=== PATIENT | male | born 1980 | race Hispanic/Latino ===

== ENCOUNTER 2018-05-08 17:06 | Inpatient (IN) | payer MEDICAID, OTHER ==
[~2018-05-08] VITALS: Ht 180.3 cm; Wt 117.6 kg
[2018-05-08] MEDS ORDERED: NITROGLYCERIN 0.4 MG SL TAB SL ONE (17:17)
[2018-05-08] MEDS ORDERED: ASPIRIN 81MG TAB.CHEW ONE (17:17)
[2018-05-08] MEDS ORDERED: NITROGLYCERIN 50 MG/D5% WATER 1 BOT ONE (17:29)
[2018-05-08 17:30] LABS: BASOPHILS % (AUTO) 1.2 % (0.0-5.0); EOSINOPHILS % (AUTO) 0.9 % (0.0-8.0); LYMPHOCYTES % (AUTO) 18.6 % (21.0-51.0); MEAN CORPUSCULAR HEMOGLOBIN 30.8 pg (27.0-33.0); MEAN CORPUSCULAR VOLUME 90.5 fL (79-99); MONOCYTES % (AUTO) 5.8 % (3.0-13.0); NEUTROPHILS % (AUTO) 73.5 % (40.0-77.0); NUCLEATED RED BLOOD CELLS 0.1 % (0.0-0.19); PLATELET COUNT (AUTO) 364 K/uL (130-400); RED BLOOD CELL COUNT(AUTO) 5.53 MIL/uL (4.50-6.20); RED CELL DISTRIBUTION WIDTH 13.4 % (11.0-15.5); WHITE BLOOD COUNT (AUTO) 10.6 K/uL (4.8-10.8)
[2018-05-08 17:47] LABS: INR 0.89 (0.85-1.15); PARTIAL THROMBOPLASTIN TIME 26.2 SEC (26.3-35.5); PROTHROMBIN TIME 9.4 SEC (9.6-11.6)
[2018-05-08 17:48] LABS: ALBUMIN 3.7 g/dL (3.5-5.0); BILIRUBIN,TOTAL 0.4 mg/dL (0.2-1.0); CREATININE 1.4 mg/dL (0.5-1.5); POTASSIUM 4.1 mmol/L (3.5-5.1)
[2018-05-08] MEDS ORDERED: ONDANSETRON HCL 4 MG/2 ML VIAL ONE (17:58)
[2018-05-08] MEDS ORDERED: MORPHINE SULFATE 4 MG/1ML SYG ONE (17:58)
[2018-05-08] MEDS ORDERED: GLUCAGON 1MG KIT 1 MG ML IM PRN (20:00)
[2018-05-08] MEDS ORDERED: DEXTROSE 50%-WATER 50 ML DISP.SYRIN IV PRN (20:00)
[2018-05-08] MEDS: INSULIN HUMULIN R 100 UNIT/ML 3ML SQ SCH (21:00)
[2018-05-08] MEDS ORDERED: MORPHINE SULFATE 4 MG/1ML SYG IV PRN (21:30)
[2018-05-08] MEDS ORDERED: ONDANSETRON HCL 4 MG/2 ML VIAL IV PRN (21:30)
[2018-05-08] MEDS ORDERED: NITROGLYCERIN 50 MG/D5% WATER 250 BOT IV PRN (21:30)
[2018-05-08] MEDS ORDERED: SODIUM CHLORIDE 0.9% 1000ML 1,000 ML IV ONE (22:51)
[2018-05-08 23:19] LABS: AMPHET/METH SCREEN,URINE NEGATIVE (NEGATIVE); BARBITURATE SCREEN, URINE NEGATIVE (NEGATIVE); BENZODIAZEPINES SCREEN,URINE NEGATIVE (NEGATIVE); CANNABINOID SCREEN,URINE NEGATIVE (NEGATIVE); COCAINE SCREEN,URINE POSITIVE (NEGATIVE); OPIATE SCREEN,URINE NEGATIVE (NEGATIVE); PHENCYCLIDINE SCREEN,URINE NEGATIVE (NEGATIVE)
[2018-05-08 23:46] LABS: TROPONIN I 0.72 ng/mL (0.00-0.06)
[2018-05-09] VITALS (21 sets, daily range): BP systolic 101–153; BP diastolic 44–96
[2018-05-09] MEDS ORDERED: MORPHINE SULFATE 4 MG/1ML SYG ONE (00:36)
[2018-05-09 05:49] LABS: BASOPHILS % (AUTO) 0.7 % (0.0-5.0); EOSINOPHILS % (AUTO) 1.7 % (0.0-8.0); HEMATOCRIT 42.1 % (42-54); LYMPHOCYTES % (AUTO) 21.4 % (21.0-51.0); MEAN CORPUSCULAR HEMOGLOBIN 30.5 pg (27.0-33.0); MEAN CORPUSCULAR HGB CONC 33.7 g/dL (32.0-36.0); MEAN CORPUSCULAR VOLUME 90.5 fL (79-99); NEUTROPHILS % (AUTO) 70.2 % (40.0-77.0); PLATELET COUNT (AUTO) 296 K/uL (130-400); RED BLOOD CELL COUNT(AUTO) 4.65 MIL/uL (4.50-6.20); RED CELL DISTRIBUTION WIDTH 13.3 % (11.0-15.5); WHITE BLOOD COUNT (AUTO) 9.4 K/uL (4.8-10.8)
[2018-05-09 06:09] LABS: ALBUMIN 3.1 g/dL (3.5-5.0); BILIRUBIN,TOTAL 0.2 mg/dL (0.2-1.0); CREATININE 0.8 mg/dL (0.5-1.5); POTASSIUM 3.5 mmol/L (3.5-5.1); TOTAL PROTEIN, SERUM 6.1 g/dL (6.0-8.3)
[2018-05-09 06:16] LABS: TROPONIN I 3.66 ng/mL (0.00-0.06)
[2018-05-09] MEDS: SODIUM CHLORIDE 0.9% 1000ML 1,000 ML IV SCH ×3 (07:08→16:21)
[2018-05-09] MEDS: INSULIN HUMULIN R 100 UNIT/ML 3ML SQ SCH ×4 (07:30→20:46)
[2018-05-09] MEDS ORDERED: ENOXAPARIN SODIUM 100 MG/1 ML SQ ONE (08:44)
[2018-05-09] MEDS ORDERED: PANTOPRAZOLE SODIUM 40 MG TABLET.DR PO ONE (08:45)
[2018-05-09] MEDS ORDERED: INSULIN HUMULIN R 100 UNIT/ML 3ML ONE (08:46)
[2018-05-09] MEDS: PANTOPRAZOLE SODIUM 40 MG TABLET.DR PO SCH (09:00)
[2018-05-09] MEDS: ENOXAPARIN SODIUM 100 MG/1 ML SQ SCH (09:00)
[2018-05-09] MEDS ORDERED: ASPIRIN 325MG EC TAB 325 MG TABLET.DR PO SCH (09:45)
[2018-05-09] MEDS ORDERED: ASPIRIN 325 MG TABLET ONE (10:41)
[2018-05-09] MEDS ORDERED: DILTIAZEM HCL 60 MG TABLET ONE (10:41)
[2018-05-09] MEDS ORDERED: DILTIAZEM HCL 120 MG CAP.SR.24H PO ONE (10:42)
[2018-05-09] MEDS: INSULIN LISPRO 100 UNIT/ML 3ML SQ SCH ×2 (11:30→16:21)
[2018-05-09] MEDS: DILTIAZEM HCL 180 MG CAP.SR.24H PO SCH (12:17)
[2018-05-09] MEDS ORDERED: NITROGLYCERIN 5 MG/ML 10 ML VIAL IV ONE (16:00)
[2018-05-09] MEDS ORDERED: LIDOCAINE HCL-MPF 2% 5ML VIAL ONE (16:00)
[2018-05-09] MEDS ORDERED: IOHEXOL 350 MG/ML 100ML INFUS..BTL IV ONE ×2 (16:00→17:54)
[2018-05-09] MEDS ORDERED: IOHEXOL-350 50ML VIAL IV ONE (16:00)
[2018-05-09] MEDS ORDERED: BIVALIRUDIN 250 MG/VIAL IV ONE ×2 (16:04→17:42)
[2018-05-09] MEDS ORDERED: ATROPINE SULFATE 0.1 MG/ML 10 ML SYG IVP ONE (16:24)
[2018-05-09] MEDS ORDERED: HEPARIN SODIUM 1000UNIT/ML 10ML VIAL ONE (16:24)
[2018-05-09] MEDS ORDERED: DOPAMINE HCL 400 MG/D5%-WATER 0 ML IV ONE (16:24)
[2018-05-09] MEDS ORDERED: PRASUGREL HCL 10 MG TABLET ONE (18:25)
[2018-05-09] MEDS ORDERED: SODIUM CHLORIDE 0.9% 1000ML 1,000 ML IV SCH (18:56)
[2018-05-09] MEDS ORDERED: NITROGLYCERIN 50 MG/D5% WATER 1 BOT IV PRN (19:00)
[2018-05-09] MEDS ORDERED: FUROSEMIDE 10 MG/ML 2ML VIAL ONE (19:01)
[2018-05-09] MEDS: MORPHINE SULFATE 2 MG/ML 1ML SYG IV PRN (20:36)
[2018-05-09] MEDS: INSULIN GLARGINE 100 UNITS/ML 10 ML VIAL SQ SCH (20:44)
[2018-05-10] VITALS (18 sets, daily range): BP systolic 94–144; BP diastolic 50–86
[2018-05-10 04:00] LABS: HEMATOCRIT 38.7 % (42-54); MEAN CORPUSCULAR HGB CONC 33.8 g/dL (32.0-36.0); NUCLEATED RED BLOOD CELLS 0.1 % (0.0-0.19); PLATELET COUNT (AUTO) 307 K/uL (130-400); RED BLOOD CELL COUNT(AUTO) 4.21 MIL/uL (4.50-6.20); RED CELL DISTRIBUTION WIDTH 13.8 % (11.0-15.5); WHITE BLOOD COUNT (AUTO) 6.7 K/uL (4.8-10.8)
[2018-05-10 04:11] LABS: CREATININE 0.7 mg/dL (0.5-1.5); POTASSIUM 3.3 mmol/L (3.5-5.1)
[2018-05-10] MEDS: INSULIN HUMULIN R 100 UNIT/ML 3ML SQ SCH ×3 (06:20→20:14)
[2018-05-10] MEDS: INSULIN LISPRO 100 UNIT/ML 3ML SQ SCH ×3 (06:40→16:56)
[2018-05-10] MEDS ORDERED: ATORVASTATIN CALCIUM 20 MG TABLET PO SCH (09:00)
[2018-05-10] MEDS ORDERED: PANTOPRAZOLE SODIUM 40 MG TABLET.DR PO SCH (09:00)
[2018-05-10] MEDS: PRASUGREL HCL 10 MG TABLET PO SCH (09:20)
[2018-05-10] MEDS: DILTIAZEM HCL 180 MG CAP.SR.24H PO SCH (09:20)
[2018-05-10] MEDS: ASPIRIN 81MG TAB.CHEW PO SCH (09:20)
[2018-05-10] MEDS: PANTOPRAZOLE SODIUM 40 MG TABLET.DR PO SCH (09:20)
[2018-05-10] MEDS: ENOXAPARIN SODIUM 100 MG/1 ML SQ SCH (09:25)
[2018-05-10] MEDS: ATORVASTATIN CALCIUM 20 MG TABLET PO SCH (20:09)
[2018-05-10] MEDS: ACETAMINOPHEN 325 MG TAB PO PRN (20:10)
[2018-05-10] MEDS: INSULIN GLARGINE 100 UNITS/ML 10 ML VIAL SQ SCH (20:14)
[2018-05-11] VITALS (8 sets, daily range): BP systolic 113–170; BP diastolic 68–104
[2018-05-11] MEDS: ACETAMINOPHEN 325 MG TAB PO PRN ×4 (03:35→21:24)
[2018-05-11] MEDS: INSULIN HUMULIN R 100 UNIT/ML 3ML SQ SCH ×4 (06:46→20:52)
[2018-05-11] MEDS: INSULIN LISPRO 100 UNIT/ML 3ML SQ SCH ×3 (06:46→16:39)
[2018-05-11] MEDS: PANTOPRAZOLE SODIUM 40 MG TABLET.DR PO SCH (09:35)
[2018-05-11] MEDS: ASPIRIN 81MG TAB.CHEW PO SCH (09:35)
[2018-05-11] MEDS: ENOXAPARIN SODIUM 100 MG/1 ML SQ SCH (09:35)
[2018-05-11] MEDS: DILTIAZEM HCL 180 MG CAP.SR.24H PO SCH (09:35)
[2018-05-11] MEDS: PRASUGREL HCL 10 MG TABLET PO SCH (09:36)
[2018-05-11 11:31] LABS: APPEARANCE,URINE Clear (CLEAR); BILIRUBIN,URINE Small (NEGATIVE); COLOR,URINE Dark Yellow (YELLOW); GLUCOSE, URINE (UA) TRACE mg/dL (NEGATIVE); KETONES,URINE Negative (NEGATIVE); LEUKOCYTE ESTERASE ,URINE Negative (NEGATIVE); NITRATE,URINE Negative (NEGATIVE); OCCULT BLOOD,URINE Negative (NEGATIVE); PH,URINE 6.5 (5.0-8.0); PROTEIN,URINE POS 1+ (NEGATIVE)
[2018-05-11 12:05] LABS: BACTERIA,URINE Rare /HPF (None Seen); RBC,URINE 0-1 /HPF (0-1); SQUAMOUS EPITHELIAL CELL,UR Rare /HPF (0-2); WBC,URINE 0-1 /HPF (0-1)
[2018-05-11] MEDS ORDERED: VANCOMYCIN PROTOCOL PER PHARMACY IV SCH (14:00)
[2018-05-11] MEDS ORDERED: PHARMACY COMMUNICATION MISC SCH (14:00)
[2018-05-11] MEDS: ZOSYN 3.375GM+NS 50ML 50 ML IV SCH ×2 (15:08→23:34)
[2018-05-11] MEDS ORDERED: VANCOMYCIN 2 GM in SODIUM CHLORIDE 0.9% 500ML 500 ML IV SCH (15:30)
[2018-05-11] MEDS ORDERED: COMPOUND IV REFRIGERATED 1 EACH IVSOLN MISC PRN (15:30)
[2018-05-11] MEDS ORDERED: SODIUM CHLORIDE 0.9% 250 ML IV ONE (15:44)
[2018-05-11] MEDS: ATORVASTATIN CALCIUM 20 MG TABLET PO SCH (21:23)
[2018-05-11] MEDS: VANCOMYCIN 1.75 GM in SODIUM CHLORIDE 0.9% 250 ML IV SCH (21:24)
[2018-05-11] MEDS: INSULIN GLARGINE 100 UNITS/ML 10 ML VIAL SQ SCH (21:25)
[2018-05-11] MEDS: MORPHINE SULFATE 2 MG/ML 1ML SYG IV PRN (21:30)
[2018-05-12 03:30] VITALS: BP 117/77
[2018-05-12] MEDS: ACETAMINOPHEN 325 MG TAB PO PRN (03:42)
[2018-05-12 03:43] LABS: HEMATOCRIT 38.5 % (42-54); MEAN CORPUSCULAR HEMOGLOBIN 30.5 pg (27.0-33.0); MEAN CORPUSCULAR HGB CONC 33.9 g/dL (32.0-36.0); MEAN CORPUSCULAR VOLUME 90.1 fL (79-99); PLATELET COUNT (AUTO) 248 K/uL (130-400); RED BLOOD CELL COUNT(AUTO) 4.27 MIL/uL (4.50-6.20); RED CELL DISTRIBUTION WIDTH 13.5 % (11.0-15.5); WHITE BLOOD COUNT (AUTO) 9.5 K/uL (4.8-10.8)
[2018-05-12] MEDS ORDERED: GUAIFENESIN-DM 200/20 MG 10 ML ONE (03:46)
[2018-05-12 03:50] LABS: POTASSIUM 3.2 mmol/L (3.5-5.1)
[2018-05-12 03:56] LABS: B-TYPE NATRIURETIC PEPTIDE 362 pg/mL (0-100)
[2018-05-12] MEDS ORDERED: IPRATROPIUM 0.5 MG/2.5 ML INH IH ONE (04:03)
[2018-05-12] MEDS: VANCOMYCIN 1.75 GM in SODIUM CHLORIDE 0.9% 250 ML IV SCH ×3 (05:27→21:58)
[2018-05-12] MEDS ORDERED: POTASSIUM CHLORIDE 20MEQ/100ML 100 ML IV PRN (05:45)
[2018-05-12] MEDS ORDERED: MAGNESIUM 2GM PREMIX 50ML 50 ML IV PRN (05:45)
[2018-05-12] MEDS ORDERED: LIDOCAINE HCL-MPF 1% 2ML VIAL IVP PRN (05:45)
[2018-05-12] MEDS ORDERED: POTASSIUM CHLORIDE 10% ELIXIR 20 MEQ/15 ML UDCUP PO PRN (05:45)
[2018-05-12] MEDS: INSULIN HUMULIN R 100 UNIT/ML 3ML SQ SCH ×4 (05:50→21:16)
[2018-05-12] MEDS: ZOSYN 3.375GM+NS 50ML 50 ML IV SCH ×3 (06:48→23:53)
[2018-05-12] MEDS: POTASSIUM CHLORIDE 20 MEQ ERTAB PO PRN ×3 (06:48→12:26)
[2018-05-12] MEDS: INSULIN LISPRO 100 UNIT/ML 3ML SQ SCH ×3 (06:49→16:51)
[2018-05-12 07:54] VITALS: BP 100/72
[2018-05-12] MEDS: PRASUGREL HCL 10 MG TABLET PO SCH (09:56)
[2018-05-12] MEDS: OSELTAMIVIR PHOSPHATE 75 MG CAP PO SCH ×2 (09:56→21:12)
[2018-05-12] MEDS: ASPIRIN 81MG TAB.CHEW PO SCH (09:56)
[2018-05-12] MEDS: ENOXAPARIN SODIUM 100 MG/1 ML SQ SCH (09:57)
[2018-05-12] MEDS: LANSOPRAZOLE 15 MG SOLU TAB PO SCH (09:57)
[2018-05-12 12:16] VITALS: BP 115/75
[2018-05-12] MEDS: IPRATROPIUM 0.5 MG/2.5 ML INH IH PRN ×3 (12:48→23:10)
[2018-05-12 16:41] VITALS: BP 103/79
[2018-05-12 19:00] VITALS: BP 112/72
[2018-05-12] MEDS: ATORVASTATIN CALCIUM 20 MG TABLET PO SCH (21:12)
[2018-05-12] MEDS: CARVEDILOL 12.5 MG TABLET PO SCH (21:12)
[2018-05-12] MEDS: INSULIN GLARGINE 100 UNITS/ML 10 ML VIAL SQ SCH (21:17)
[2018-05-12] MEDS ORDERED: SODIUM CHLORIDE 0.9% 250 ML IV ONE (21:32)
[2018-05-12 23:00] VITALS: BP 113/82
[2018-05-12] MEDS: GUAIFENESIN-DM 200/20 MG 10 ML PO PRN (23:04)
[2018-05-13 03:00] VITALS: BP 109/73
[2018-05-13] MEDS: MORPHINE SULFATE 2 MG/ML 1ML SYG IV PRN (03:57)
[2018-05-13] MEDS: INSULIN HUMULIN R 100 UNIT/ML 3ML SQ SCH ×3 (05:10→16:30)
[2018-05-13] MEDS: VANCOMYCIN 1.75 GM in SODIUM CHLORIDE 0.9% 250 ML IV SCH ×2 (05:11→14:27)
[2018-05-13] MEDS: INSULIN LISPRO 100 UNIT/ML 3ML SQ SCH ×3 (06:31→17:00)
[2018-05-13 08:00] VITALS: BP 105/76
[2018-05-13] MEDS: ZOSYN 3.375GM+NS 50ML 50 ML IV SCH ×2 (10:53→16:14)
[2018-05-13] MEDS: CARVEDILOL 12.5 MG TABLET PO SCH (10:54)
[2018-05-13] MEDS: OSELTAMIVIR PHOSPHATE 75 MG CAP PO SCH (10:54)
[2018-05-13] MEDS: ENOXAPARIN SODIUM 100 MG/1 ML SQ SCH (10:54)
[2018-05-13] MEDS: PRASUGREL HCL 10 MG TABLET PO SCH (10:54)
[2018-05-13] MEDS: ASPIRIN 81MG TAB.CHEW PO SCH (10:55)
[2018-05-13] MEDS: LANSOPRAZOLE 15 MG SOLU TAB PO SCH (10:55)
[2018-05-13 12:00] VITALS: BP 96/66
[2018-05-13] MEDS: GUAIFENESIN-DM 200/20 MG 10 ML PO PRN (12:36)
[2018-05-13] MEDS: IPRATROPIUM 0.5 MG/2.5 ML INH IH PRN (12:49)
[2018-05-13 16:00] VITALS: BP 104/41
[2018-05-13 19:00] VITALS: BP 121/86
[2018-05-13] MEDS ORDERED: CARV12.580 PO (19:20)
[2018-05-13] MEDS ORDERED: PRAS10TA6 PO (19:20)
[2018-05-13] MEDS ORDERED: ATOR20TA65 PO (19:20)
[2018-05-13] MEDS ORDERED: LANS15TA5 PO (19:20)
[2018-05-13] MEDS ORDERED: OSEL75 PO (19:20)
[2018-05-13] MEDS ORDERED: ASPI-1005 PO (19:20)
== END 2018-05-13 20:15 | disposition home or self-care (01) | DRG 174 ==
LOC: EDH 17:06 → EDHIP 17:07 → 2CH 05-09 12:15 → 2DH 05-10 16:59
PROVIDERS: ADMIT Internal Medicine; ATTEND Internal Medicine
PROC: 027034Z Dilation of Coronary Artery, One Artery with Drug-eluting Intraluminal Device, Percutaneous Approach (ICD-10-PCS; principal; 2018-05-09)
PROC: B2151ZZ Fluoroscopy of Left Heart using Low Osmolar Contrast (ICD-10-PCS; 2018-05-09)
PROC: 4A023N7 Measurement of Cardiac Sampling and Pressure, Left Heart, Percutaneous Approach (ICD-10-PCS; 2018-05-09)
PROC: B2111ZZ Fluoroscopy of Multiple Coronary Arteries using Low Osmolar Contrast (ICD-10-PCS; 2018-05-09)
DX: I21.4 Non-ST elevation (NSTEMI) myocardial infarction (principal); I50.43 Acute on chronic combined systolic (congestive) and diastolic (congestive) heart failure; J10.00 Influenza due to other identified influenza virus with unspecified type of pneumonia; F14.20 Cocaine dependence, uncomplicated; E11.65 Type 2 diabetes mellitus with hyperglycemia; E66.01 Morbid (severe) obesity due to excess calories; I11.0 Hypertensive heart disease with heart failure; E78.5 Hyperlipidemia, unspecified; F17.210 Nicotine dependence, cigarettes, uncomplicated; G47.00 Insomnia, unspecified; I16.1 Hypertensive emergency; I25.10 Atherosclerotic heart disease of native coronary artery without angina pectoris; I25.5 Ischemic cardiomyopathy; I34.0 Nonrheumatic mitral (valve) insufficiency; J10.1 Influenza due to other identified influenza virus with other respiratory manifestations; K59.00 Constipation, unspecified; Z68.36 Body mass index [BMI] 36.0-36.9, adult; I25.2 Old myocardial infarction; Z23 Encounter for immunization; Z91.19 Patient's noncompliance with other medical treatment and regimen; Z95.5 Presence of coronary angioplasty implant and graft; Z82.49 Family history of ischemic heart disease and other diseases of the circulatory system; Z83.3 Family history of diabetes mellitus
CPT/HCPCS: 36415; 71045; 71046; 80048; 80053; 80061; 80202; 80305; 81001; 82550; 82948; 83036; 83735; 83874; 83880; 84484; 85025; 85027; 85610; 85730; 87040; 87088; 87633; 87804; 92920; 93005; 93306; 93308; 93458; 94640; 94664; 99291; C1725; C1760; C1769; C1887; C1894; C9606; J0461; J0583; J1265; J1644; J1650; J1815; J1940; J2270; J2405; J2543; J3370; J3475; J3490; J7030; J7040; Q9967

== ENCOUNTER → 2018-08-07 | Outpatient (CLI) | payer MEDICAID, SELFPAY ==
[~2018-08-07] MED LIST: ASPI-1005 PO; ATOR20TA65 PO; CARV12.580 PO; LANS15TA5 PO; OSEL75 PO; PRAS10TA6 PO
== END | disposition home or self-care (01) ==
LOC: SHCH 09:29
PROVIDERS: ATTEND Internal Medicine Cardiovascular Disease
DX: I11.9 Hypertensive heart disease without heart failure (principal); I22.1 Subsequent ST elevation (STEMI) myocardial infarction of inferior wall
CPT/HCPCS: 93306

== ENCOUNTER 2019-11-30 13:40 | Emergency (ER) | payer OTHER, SELFPAY ==
[2019-11-30] MEDS ORDERED: ASPIRIN 325 MG TABLET ONE (13:57)
[2019-11-30 14:40] LABS: BASOPHILS % (AUTO) 0.3 % (0.0-5.0); EOSINOPHILS % (AUTO) 0.4 % (0.0-8.0); LYMPHOCYTES % (AUTO) 26.6 % (21.0-51.0); MEAN CORPUSCULAR HEMOGLOBIN 29.7 pg (27.0-33.0); MEAN CORPUSCULAR HGB CONC 33.6 g/dL (32.0-36.0); MEAN CORPUSCULAR VOLUME 88.6 fL (79-99); NEUTROPHILS % (AUTO) 65.4 % (40.0-77.0); PLATELET COUNT (AUTO) 270 K/uL (130-400); RED BLOOD CELL COUNT(AUTO) 5.08 MIL/uL (4.50-6.20); RED CELL DISTRIBUTION WIDTH 12.6 % (11.0-15.5); WHITE BLOOD COUNT (AUTO) 6.7 K/uL (4.8-10.8)
[2019-11-30 14:51] LABS: CREATININE 0.9 mg/dL (0.5-1.5)
[2019-11-30 15:05] LABS: ALBUMIN 3.6 g/dL (3.5-5.0); BILIRUBIN,TOTAL 0.2 mg/dL (0.2-1.0); TOTAL PROTEIN, SERUM 6.5 g/dL (6.0-8.3)
[2019-11-30 15:21] LABS: INR 0.87 (0.85-1.15); PARTIAL THROMBOPLASTIN TIME 25.2 SEC (26.3-35.5); PROTHROMBIN TIME 9.4 SEC (9.6-11.6)
[2019-11-30 17:29] LABS: AMPHET/METH SCREEN,URINE NEGATIVE (NEGATIVE); BARBITURATE SCREEN, URINE NEGATIVE (NEGATIVE); BENZODIAZEPINES SCREEN,URINE NEGATIVE (NEGATIVE); CANNABINOID SCREEN,URINE NEGATIVE (NEGATIVE); COCAINE SCREEN,URINE POSITIVE (NEGATIVE); OPIATE SCREEN,URINE NEGATIVE (NEGATIVE); PHENCYCLIDINE SCREEN,URINE NEGATIVE (NEGATIVE)
== END 2019-11-30 17:58 | disposition home or self-care (01) ==
LOC: EDH 13:40
DX: R07.89 Other chest pain (principal); F14.10 Cocaine abuse, uncomplicated; E78.5 Hyperlipidemia, unspecified; I10 Essential (primary) hypertension; E11.9 Type 2 diabetes mellitus without complications; Z72.0 Tobacco use; I21.9 Acute myocardial infarction, unspecified
CPT/HCPCS: 36415; 71045; 80053; 80305; 82550; 84484; 85025; 85610; 85730; 93005

== ENCOUNTER 2022-04-29 00:14 | Emergency (ER) | payer OTHER ==
[~2022-04-29] VITALS: Ht 180.3 cm; Wt 119.3 kg
[2022-04-29] MEDS ORDERED: CYCL10TA16 PO (01:55)
[2022-04-29] MEDS ORDERED: METH4TAB3 PO (01:55)
[2022-04-29 01:59] VITALS: BP 124/73
[2022-04-29] MEDS ORDERED: KETOROLAC 60 MG VIAL (30MG/ML) IM ONE (02:00)
[2022-04-29] MEDS ORDERED: KETOROLAC 15MG/ML VIAL (15MG/ML) IV ONE (02:00)
[2022-04-29] MEDS ORDERED: SOLU-MEDROL 125MG VIAL IVP ONE (02:00)
[2022-04-29] MEDS ORDERED: SOLU-MEDROL 125MG VIAL IM ONE (02:00)
== END 2022-04-29 02:08 | disposition home or self-care (01) ==
LOC: EDH 00:14
DX: S20.212A Contusion of left front wall of thorax, initial encounter (principal); S50.02XA Contusion of left elbow, initial encounter; M79.18 Myalgia, other site; M54.2 Cervicalgia; M25.572 Pain in left ankle and joints of left foot; E11.9 Type 2 diabetes mellitus without complications; E78.00 Pure hypercholesterolemia, unspecified; I10 Essential (primary) hypertension; Z79.899 Other long term (current) drug therapy; Z79.82 Long term (current) use of aspirin; W19.XXXA Unspecified fall, initial encounter; Y93.89 Activity, other specified; Y92.89 Other specified places as the place of occurrence of the external cause; Y99.8 Other external cause status
CPT/HCPCS: 99284; 73600; 73070; 73562; 71101; 96372 ×2; J2930; J1885

== ENCOUNTER 2022-10-01 16:39 | Emergency (ER) | payer OTHER ==
[~2022-10-01] VITALS: Ht 180.3 cm; Wt 118.8 kg
[~2022-10-01 16:39] MED LIST changes: +CYCL10TA16 PO; +METH4TAB3 PO
[2022-10-01 17:19] LABS: BASOPHILS % (AUTO) 0.5 % (0.0-5.0); EOSINOPHILS % (AUTO) 1.9 % (0.0-8.0); LYMPHOCYTES % (AUTO) 24.2 % (21.0-51.0); MEAN CORPUSCULAR HEMOGLOBIN 29.5 pg (27.0-33.0); MEAN CORPUSCULAR HGB CONC 32.9 g/dL (32.0-36.0); MEAN CORPUSCULAR VOLUME 89.6 fL (79-99); MONOCYTES % (AUTO) 7.4 % (3.0-13.0); NEUTROPHILS % (AUTO) 65.8 % (40.0-77.0); PLATELET COUNT (AUTO) 272 K/uL (130-400); RED BLOOD CELL COUNT(AUTO) 5.36 MIL/uL (4.50-6.20); RED CELL DISTRIBUTION WIDTH 13.5 % (11.0-15.5); WHITE BLOOD COUNT (AUTO) 6.2 K/uL (4.8-10.8)
[2022-10-01 17:25] LABS: CREATININE 1.1 mg/dL (0.5-1.5)
[2022-10-01 17:30] LABS: TOTAL PROTEIN, SERUM 6.7 g/dL (6.0-8.3)
[2022-10-01] MEDS ORDERED: LORAZEPAM 2 MG/ML 1 ML VIAL IVP ONE (19:00)
[2022-10-01] MEDS ORDERED: LIDOCAINE HCL 2% VISCOUS 15 ML UDCUP PO ONE (19:00)
[2022-10-01] MEDS ORDERED: MAG/ALUM/SIMETH 30 ML UDCUP PO ONE (19:00)
[2022-10-01] MEDS ORDERED: ASPI-1197 PO (19:04)
[2022-10-01] MEDS ORDERED: LORAZEPAM 1 MG TABLET ONE (19:14)
[2022-10-01 19:26] VITALS: BP 132/74
== END 2022-10-01 19:36 | disposition home or self-care (01) ==
LOC: EDH 16:39
DX: F14.10 Cocaine abuse, uncomplicated (principal); R07.9 Chest pain, unspecified; I10 Essential (primary) hypertension; E11.9 Type 2 diabetes mellitus without complications; E78.00 Pure hypercholesterolemia, unspecified; Z79.899 Other long term (current) drug therapy; Z79.82 Long term (current) use of aspirin; Z95.5 Presence of coronary angioplasty implant and graft
CPT/HCPCS: 36415; 71045; 80053; 82550; 84484; 85025; 93005; 96374

== ENCOUNTER 2023-09-03 20:51 | Emergency (ER) | payer BC ==
[~2023-09-03] VITALS: Ht 180.3 cm; Wt 117.9 kg
[~2023-09-03 20:51] MED LIST changes: -ASPI-1005 PO; +ASPI-1197 PO; -ATOR20TA65 PO; +CARV12.511 PO; -CARV12.580 PO; -CYCL10TA16 PO; +FENO145T26 PO; +GABA-534 PO; +INSU100I35 SQ; -LANS15TA5 PO; +METF-446 PO; -METH4TAB3 PO; +NITR0.4T50 SL; -OSEL75 PO; +PANT40TA54 PO; -PRAS10TA6 PO; +PRAS10TA9 PO; +ROSU20TA73 PO; +SACU1TAB PO
[2023-09-03 21:14] LABS: BASOPHILS # (AUTO) 0.06 K/uL (0.00-0.20); BASOPHILS % (AUTO) 0.6 % (0.0-5.0); EOSINOPHILS # (AUTO) 0.16 K/uL (0.00-0.70); EOSINOPHILS % (AUTO) 1.6 % (0.0-8.0); HEMATOCRIT 43.6 % (42-54); IMMATURE GRANULOCYTE ABSOLUTE 0.02 K/uL (0-1); LYMPHOCYTES # (AUTO) 1.6 K/uL (1.0-4.8); LYMPHOCYTES % (AUTO) 15.8 % (21.0-51.0); MEAN CORPUSCULAR HEMOGLOBIN 26.7 pg (27.0-33.0); MEAN CORPUSCULAR HGB CONC 32.3 g/dL (32.0-36.0); MEAN CORPUSCULAR VOLUME 82.6 fL (79-99); MONOCYTES # (AUTO) 0.5 K/uL (0.1-1.0); MONOCYTES % (AUTO) 5.3 % (3.0-13.0); NEUTROPHILS # (AUTO) 7.9 K/uL (1.8-7.7); NEUTROPHILS % (AUTO) 76.5 % (40.0-77.0); PLATELET COUNT (AUTO) 389 K/uL (130-400); RED BLOOD CELL COUNT(AUTO) 5.28 MIL/uL (4.50-6.20); RED CELL DISTRIBUTION WIDTH 14.4 % (11.0-15.5); WHITE BLOOD COUNT (AUTO) 10.3 K/uL (4.8-10.8)
[2023-09-03 21:25] LABS: POTASSIUM 3.8 mmol/L (3.5-5.1)
[2023-09-03 21:30] LABS: ALBUMIN 3.5 g/dL (3.5-5.0); BILIRUBIN,TOTAL 0.3 mg/dL (0.2-1.0); TOTAL PROTEIN, SERUM 7.4 g/dL (6.0-8.3)
[2023-09-03 21:40] LABS: RAPID GROUP A STREP negative (NEGATIVE)
[2023-09-03 21:44] LABS: SARS-CoV-2, RNA, NAAT POSITIVE SARS CoV-2 (NEGATIVE)
[2023-09-03 21:52] LABS: INFLUENZA TYPE A Negative For Type A (NEGATIVE); INFLUENZA TYPE B Negative For Type B (NEGATIVE)
[2023-09-04] MEDS ORDERED: BUDE10.2 IH (00:17)
[2023-09-04] MEDS ORDERED: ALBUHFA IH (00:17)
[2023-09-04] MEDS ORDERED: FURO40TA5 PO (00:17)
[2023-09-04] MEDS ORDERED: BENZ-39 PO (00:17)
[2023-09-04] MEDS: FUROSEMIDE 40 MG TABLET PO ONE (00:21)
[2023-09-04 00:24] VITALS: BP 152/94; PULSE 92; RESP 16; O2SAT 90
== END 2023-09-04 00:27 | disposition home or self-care (01) ==
LOC: EDH 20:51
DX: U07.1 COVID-19 (principal); I10 Essential (primary) hypertension; I50.9 Heart failure, unspecified; E11.9 Type 2 diabetes mellitus without complications; E78.00 Pure hypercholesterolemia, unspecified; I25.10 Atherosclerotic heart disease of native coronary artery without angina pectoris; J44.9 Chronic obstructive pulmonary disease, unspecified; F17.200 Nicotine dependence, unspecified, uncomplicated; Z79.02 Long term (current) use of antithrombotics/antiplatelets; Z79.51 Long term (current) use of inhaled steroids; Z79.82 Long term (current) use of aspirin; Z79.84 Long term (current) use of oral hypoglycemic drugs; Z79.899 Other long term (current) drug therapy; Z95.5 Presence of coronary angioplasty implant and graft
CPT/HCPCS: 36415; 71045; 80053; 83880; 84484; 85025; 85378; 87635; 87804; 87880; 93005

== ENCOUNTER 2024-08-15 15:22 | Inpatient (IN) | payer SELFPAY ==
[~2024-08-15] VITALS: Ht 175.3 cm; Wt 119.7 kg
[~2024-08-15 15:22] MED LIST changes: +AEC81 PO; +ALBUHFA IH; +ATOR40TA69 PO; +BENZ-39 PO; +BUDE10.2 IH; -CARV12.511 PO; +EMPA10TA PO; +FENO145T PO; +INSLAN SQ; -INSU100I35 SQ; +INSU100V3 SQ; +LISI2.5T13 PO; -METF-446 PO; +METO25 PO; -PRAS10TA9 PO; -ROSU20TA73 PO; -SACU1TAB PO; +SPIR25TA6 PO
[2024-08-15] MEDS: IpraTROPium/alBUTERol SULFATE 3 ML SOLUTION IH STA (15:41)
[2024-08-15 15:42] VITALS: PULSE 102; RESP 22
[2024-08-15] MEDS: Solu-medROL 125MG VIAL IVP STA (15:44)
[2024-08-15] MEDS: acetaMINOPHEN 325 MG TAB PO STA (15:45)
[2024-08-15 15:52] LABS: BASOPHILS # (AUTO) 0.04 K/uL (0.00-0.20); BASOPHILS % (AUTO) 0.5 % (0.0-5.0); EOSINOPHILS # (AUTO) 0.11 K/uL (0.00-0.70); EOSINOPHILS % (AUTO) 1.3 % (0.0-8.0); HEMATOCRIT 48.5 % (42-54); IMMATURE GRANULOCYTE ABSOLUTE 0.03 K/uL (0-1); LYMPHOCYTES # (AUTO) 1.4 K/uL (1.0-4.8); LYMPHOCYTES % (AUTO) 16.7 % (21.0-51.0); MEAN CORPUSCULAR HEMOGLOBIN 28.5 pg (27.0-33.0); MEAN CORPUSCULAR HGB CONC 31.5 g/dL (32.0-36.0); MEAN CORPUSCULAR VOLUME 90.5 fL (79-99); MONOCYTES # (AUTO) 0.6 K/uL (0.1-1.0); MONOCYTES % (AUTO) 7.6 % (3.0-13.0); NEUTROPHILS # (AUTO) 6.2 K/uL (1.8-7.7); NEUTROPHILS % (AUTO) 73.5 % (40.0-77.0); PLATELET COUNT (AUTO) 340 K/uL (130-400); RED BLOOD CELL COUNT(AUTO) 5.36 MIL/uL (4.50-6.20); RED CELL DISTRIBUTION WIDTH 13.5 % (11.0-15.5); WHITE BLOOD COUNT (AUTO) 8.4 K/uL (4.8-10.8)
[2024-08-15 16:00] LABS: ABG BASE EXCESS 3.4 mmol/L (-2.0-3.0); ABG HCO3 30.4 mmol/L (21.0-28.0); ABG OXYGEN SATURATION 92.9 % (94.0-98.0); ABG PCO2 56 mmHg (35-48); ABG PH 7.357 (7.350-7.450); CARBON MONOXIDE 8.9 % (0.5-1.5); HHb 6.5; PO2, ARTERIAL BG 65.5 mmHg (83.0-108.0); VENT MODE, BG NC (ROOM AIR)
[2024-08-15 16:02] LABS: CREATININE 0.9 mg/dL (0.5-1.3); POTASSIUM 3.8 mmol/L (3.5-5.1)
--- NOTE | 2024-08-15 16:12 | HMCIMG ---
CHEST 1VW REASON: cough, sob COMPARISON: 02/21/2024 FINDINGS: There are stable cardial megaly. There is mild pulmonary vascular congestion. There are no pleural effusions. There are no focal infiltrates. IMPRESSION: 1. Stable cardial megaly. 2. Mild pulmonary vascular congestion.
[2024-08-15 16:15] LABS: INFLUENZA TYPE A Negative For Type A (NEGATIVE); INFLUENZA TYPE B Negative For Type B (NEGATIVE); SARS-CoV-2, RNA, NAAT NEGATIVE SARS CoV-2 (NEGATIVE)
--- NOTE | 2024-08-15 16:17 | ERN ---
ED Note History of Present Illness Stated Complaint: COUGH,FEVER,SOB Chief Complaint: Shortness of Breath Time Seen by MD: 15:25 Time Seen by Midlevel: 15:30 Dictation: 43-year-old male with a history of hypertension, diabetes, and cholesterol and a previous MN coming in with complaints of fever, cough, congestion or shortness a breath for one week and a half progressively getting worse. Denies having any history of COPD, or asthma but does admit to his smoke daily. As per spouse patient also has had bilateral lower leg swelling. At this time patient complaining of shortness a breath, denies any chest pain, nausea, or vomiting. Allergies: Coded Allergies: No Known Drug Allergies (Unverified Allergy, Unknown, 05/09/18) Unable to Assess (Verified Allergy, Unknown, 05/09/18) Home Meds Active Scripts Nitroglycerin (Nitroglycerin) 0.4 Mg Tab.subl, 0.4 MG SL [id number] PRN for chest pain, #30 TAB.SL 1 Refill Prov:CHARLIE AYOUB MD 02/26/24 Spironolactone (Spironolactone) 25 Mg Tablet, 12.5 MG PO DAILY for 30 Days, #30 TAB 2 Refills Prov:CHARLIE AYOUB MD 02/26/24 Metoprolol Tartrate (Lopressor) 25 Mg Tab, 37.5 MG PO BID for 30 Days, #30 TAB 2 Refills Prov:CHARLIE AYOUB MD 02/26/24 Lisinopril (Lisinopril) 2.5 Mg Tablet, 2.5 MG PO DAILY for 30 Days, #30 TAB 2 Refills Prov:CHARLIE AYOUB MD 02/26/24 Insulin Regular, Human (Humulin R) 100 Unit/Ml Vial, 5 UNIT SQ TIDAC for 30 Days, #30 VIAL 2 Refills Prov:CHARLIE AYOUB MD 02/26/24 Insulin Glargine,Hum.rec.anlog (Lantus) 100 Unit/Ml Inj, 20 UNITS SQ BID@0730,2100 for 30 Days, #30 ML 1 Refill Prov:CHARLIE AYOUB MD 02/26/24 Fenofibrate Nanocrystallized (Tricor) 145 Mg Tablet, 145 MG PO DAILY for 30 Days, #30 TAB 2 Refills Prov:CHARLIE AYOUB MD 02/26/24 Empagliflozin (Jardiance) 10 Mg Tablet, 10 MG PO DAILY for 30 Days, #30 TAB 2 Refills Prov:CHARLIE AYOUB MD 02/26/24 Atorvastatin Calcium (LIPITOR) 40 Mg Tablet, 40 MG PO HS for 30 Days, #30 TAB 2 Refills Prov:CHARLIE AYOUB MD 02/26/24 Aspirin (ASPIRIN 81 MG ECTAB) 81 Mg Ectab, 81 MG PO DAILY for 30 Days, #30 TAB.EC 2 Refills Prov:CHARLIE AYOUB MD 02/26/24 Benzonatate (Tessalon Perles) 100 Mg Cap, 100 MG PO TID for cough, #21 CAP 0 Refills Prov:RUSS AGUILAR MD 09/04/23 Budesonide/Formoterol Fumarate (Symbicort 160-4.5 Mcg Inhaler) 160 Mcg-4.5 Mcg/Actuation Hfa.aer.ad, 2 PUFF IH BID for 15 Days, #1 INHALER Prov:RUSS AGUILAR MD 09/04/23 Albuterol Sulfate (Ventolin Hfa/Proventil Hfa/Proair Hfa) 90 Mcg Puff, 2 PUFF IH Q4H for WHEEZING, #1 INHALER 0 Refills Prov:RUSS AGUILAR MD 09/04/23 Aspirin (Aspirin) 81 Mg Tab.chew, 81 MG PO DAILY for 30 Days, #30 TAB.CHEW Prov:KATYA RAMIREZ MD 10/01/22 Reported Medications Nitroglycerin (Nitroglycerin) 0.4 Mg Tab.subl, 0.4 MG SL STAT for chest pain, TAB.SL 06/21/23 Pantoprazole Sodium (Pantoprazole Sodium) 40 Mg Tablet.dr, 40 MG PO DAILY, TAB 06/21/23 Gabapentin (Gabapentin) 400 Mg Capsule, 300 MG PO DAILY, CAP 06/21/23 Fenofibrate Nanocrystallized (Fenofibrate) 145 Mg Tablet, 145 TAB PO DAILY 06/08/23 Past Medical History Past Medical History: CHF, Diabetes-Type II, High Cholesterol, Hypertension Additional Past Medical Hx: HEART STENTS X2 Surgical History: None Surgical History Other: PLACEMENT OF HEART STENTS Social History: Smokers, Drugs, Lives with family Review of System Dictation Constitutional: Negative for fever,chills, and weight loss Eyes: Negative for injury, pain,redness, and discharge ENT: Negative for injury,pain or swelling Cardiovascular: Negative for chest pain, palpitations, complaining of swelling to lower extremities Respiratory: Complaining of shortness a breath and cough Abdomen/GI: Negative for abdominal pain, nausea, vomiting, diarrhea, and constipation Back: Negative for injury and pain : Negative for injury, bleeding and discharge MS/Extremity: Negative for injury and deformity Skin: Negative for rash, and discoloration Neuro: Negative for headache, weakness, numbness, tingling, and seizure Psych: Negative for suicide ideation, homicidal ideation, and hallucinations Review of Systems: was completed Initial Vital Sign VS Vital Signs Date Time Temp Pulse Resp B/P (MAP) Pulse Ox O2 Delivery O2 Flow Rate FiO2 08/15/24 15:27 99.1 110 26 167/103 88 Room Air 0 08/15/24 15:32 21 Physical Exam Dictation General: awake, alert, NAD Head/Face: Normocephalic, atraumatic Eyes: PERRL, EOMI, vision at baseline mild periorbital swelling bilaterally ENT: oral cavity clear, TMs clear, no signs of infection Neck: Trachea midline, supple, no nuchal rigidity Cardiovascular: RRR, normal S1/S2, No MRGs, no JVD, Respiratory: Mild expiratory wheezing on initial assessment Abdomen: Soft, non-tender, non-distended, normal bowel sounds, no guarding or rebound. Skin: Warm, dry, normal turgor, no rash MS/Extremity: Pulses equal, no cyanosis, neurovascular intact, FROM Neuro: COAx4, GCS 15, strength 5/5, CN 2-12 intact, normal cerebellar exam, normal gait, Psych: Normal behavior, mood, and affect normal Results (Laboratory/Radiology) Laboratory/Radiology Laboratory Tests Test 08/15/24 15:42 08/15/24 15:48 08/15/24 15:59 White Blood Count 8.4 K/uL (4.8-10.8) Red Blood Count 5.36 MIL/uL (4.50-6.20) Hemoglobin 15.3 g/dL (14.0-18.0) Hematocrit 48.5 % (42-54) Mean Corpuscular Volume 90.5 fL (79-99) Mean Corpuscular Hemoglobin 28.5 pg (27.0-33.0) Mean Corpuscular Hemoglobin Concent 31.5 g/dL (32.0-36.0) L Red Cell Distribution Width 13.5 % (11.0-15.5) Platelet Count 340 K/uL (130-400) Mean Platelet Volume 9.1 fL (7.5-10.5) Immature Granulocyte % (Auto) 0.4 % (0-1) Neutrophils (%) (Auto) 73.5 % (40.0-77.0) Lymphocytes (%) (Auto) 16.7 % (21.0-51.0) L Monocytes (%) (Auto) 7.6 % (3.0-13.0) Eosinophils (%) (Auto) 1.3 % (0.0-8.0) Basophils (%) (Auto) 0.5 % (0.0-5.0) Neutrophils # (Auto) 6.2 K/uL (1.8-7.7) Lymphocytes # (Auto) 1.4 K/uL (1.0-4.8) Monocytes # (Auto) 0.6 K/uL (0.1-1.0) Eosinophils # (Auto) 0.11 K/uL (0.00-0.70) Basophils # (Auto) 0.04 K/uL (0.00-0.20) Absolute Immature Granulocyte (auto 0.03 K/uL (0-1) Nucleated Red Blood Cells 0.0 % (0.0-0.19) D-Dimer Quantitative (PE/DVT) 606 ng/mL (0-500) *H Sodium Level 145 mmol/L (136-145) Potassium Level 3.8 mmol/L (3.5-5.1) Chloride Level 107 mmol/L (101-111) Carbon Dioxide Level 34 mmol/L (21-32) H Blood Urea Nitrogen 15 mg/dL (7-18) Creatinine 0.9 mg/dL (0.5-1.3) Glomerular Filtration Rate Calc 107 mL/min (>90) Random Glucose 246 mg/dL (70-105) H Total Calcium 9.0 mg/dL (8.5-10.1) Troponin I High Sensitivity 22 ng/L (4-75) B-Type Natriuretic Peptide 336 pg/mL (0-100) H Influenza Type A Antigen Negative For Type A Influenza Type B Antigen Negative For Type B SARS-CoV-2, RNA, NAAT NEGATIVE SARS CoV-2 Blood Gas Specimen Type Arterial Arterial Blood pH 7.357 (7.350-7.450) Arterial Blood Partial Pressure CO2 56 mmHg (35-48) H Arterial Blood Partial Pressure O2 65.5 mmHg (83.0-108.0) L Arterial Blood HCO3 30.4 mmol/L (21.0-28.0) H Arterial Blood Oxygen Saturation 92.9 % (94.0-98.0) L Arterial Blood Base Excess 3.4 mmol/L (-2.0-3.0) H Hemoglobin (Blood Gas) 15.4 g/dL (13.5-17.5) Sodium (Blood Gas) 143 MMOL/L (136-145) Bedside Potassium (Blood Gas) 3.7 MMOL/L (3.4-4.5) Bedside Chloride (Blood Gas) 102 MMOL/L (98-107) Bedside Glucose (Blood Gas) 266 MG/DL (65-95) H Bedside Ionized Calcium (Blood Gas) 1.19 MMOL/L (1.15-1.33) Bedside Lactic Acid (Blood Gas) 1.32 MMOL/L (0.36-0.75) H Blood Gas Temperature 37.0 CELSIUS (35.5-37.0) Blood Gas Vent Mode NC (ROOM AIR) FiO2 32.0 % Blood Gas Specimen Comment RR ABDULLAHI Anaya Labs Reviewed?: Yes EKG Comment: Date:08/15/24 Time:1618 Ventricular rate:105 MI interval:191 QRS duration:20 QT/QTc:366/484 EKG interpretation: Sinus tachycardia, probable left atrial enlargement, probable anteroseptal infarct, old, nonspecific T abnormalities, lateral leads Reviewed by ED Attending no STEMI interpreted by ER MD X-RAY Comment: [address] [id number] IMAGING REPORT Signed PATIENT: ROLAND HOFFMAN MR#: [id number] : 1980 SEX: M AGE: 43 LOCATION: [facility] ORDER 153 STATUS: REG ER REPORT#: [id number] SERVICE 1537 REASON: cough, sob ORDERING PHYSICIAN: EMPERATRIZ MARQUES NP PROCEDURE: CXR1VW - CHEST 1VW CHEST 1VW REASON: cough, sob COMPARISON: 02/21/2024 FINDINGS: There are stable cardial megaly. There is mild pulmonary vascular congestion. There are no pleural effusions. There are no focal infiltrates. IMPRESSION: 1. Stable cardial megaly. 2. Mild pulmonary vascular congestion. DICTATED BY: ROYCE FUCHS MD DATE: 08/15/24 160 ELECTRONICALLY SIGNED BY: ROYCE FUCHS MD DATE: 08/15/[address] Scan Comment: [place] [id number] [place] [id number] IMAGING REPORT Signed PATIENT: ROLAND HOFFMAN MR#: [id number] : 1980 SEX: M AGE: 43 LOCATION: [facility] ORDER 1639 STATUS: [facility] REPORT#: [id number] SERVICE 1637 REASON: sob, elevated ddimer ORDERING PHYSICIAN: EMPERATRIZ MARQUES REGISTERED CLIENT ASSOCIATE PROCEDURE: CHES PE - CT CHEST PE PROTOCOL WWO CONT CT CHEST PE PROTOCOL WWO CONT CLINICAL HISTORY: sob, elevated ddimer COMPARISON: 06/19/2023 TECHNIQUE: CT angiography of the chest was performed both before and after intravenous contrast administration. The study was performed using angiographic technique with maximum intensity projection reconstruction images. Patient was given 100 ml of Omnipaque through intravenous route. CT was performed with one or more of the following dose reduction techniques: automated exposure control, adjustment of the mA and/or kV according to patient size, or use of iterative reconstruction technique FINDINGS: There are no filling defects within the pulmonary material vasculature to suggest pulmonary embolism. There is no right ventricular strain. There is advanced calcified coronary disease. The mediastinum is free of pathologic size lymph nodes. Lung parenchyma demonstrates small bilateral patchy infiltrates. This is more prominent in the right lower lobe. There is a small pericardial effusion and minimal bilateral pleural effusions. The visualized abdominal viscera is remarkable for multiple renal cortical cysts. IMPRESSION: No CT angiographic evidence of pulmonary embolus is seen. Bilateral lung infiltrates and minimal bilateral pleural effusions as well as small pericardial effusion. Advanced calcified coronary disease. Polycystic renal disease DICTATED BY: MIKI ROGERS DO DATE: 08/15/24 172 ELECTRONICALLY SIGNED BY: MIKI ROGERS DO DATE: 08/15/24 1742 ED Course ED Course Orders Procedure Category Date Status Time Cbc With Differential LAB 08/15/24 Complete 15:37 Basic Metabolic Panel LAB 08/15/24 Complete 15:37 B-Type Natriuretic LAB 08/15/24 Complete Peptide 15:37 Covid Rna Naat LAB 08/15/24 Complete 15:37 Influenza Type A & B, LAB 08/15/24 Complete Rapid 15:37 Chest 1vw RAD 08/15/24 Resulted 15:37 D-Dimer LAB 08/15/24 Complete 15:37 Troponin I High LAB 08/15/24 Complete Sensitivity 15:37 12 Lead Ekg Tracing- EKG 08/15/24 Logged Technical 15:37 Methylprednisolone PHA 08/15/24 Complete Succ 125mg (Solu-Medr 15:37 Ipratropium/Albuterol PHA 08/15/24 Complete Neb (Duoneb) 15:37 Acetaminophen 325 Tab PHA 08/15/24 Complete (Tylenol 325mg Tab 15:37 Arterial Blood Gas RT 08/15/24 Transmitted 15:47 Arterial Blood Gas LAB 08/15/24 Complete Arterial + 15:59 Ct Chest Pe Protocol CT 08/15/24 Resulted Wwo Cont 16:37 Iohexol (Omnipaque) PHA 08/15/24 Complete 16:49 Furosemide 40mg Vial PHA 08/15/24 Complete (Lasix 40mg Vial) 17:45 Ceftriaxone 1g Vial PHA 08/15/24 Complete (Rocephine 1g Inj) 18:03 Admit Orders ADM 08/15/24 Transmitted 18:20 Edm Admit Bridge Order ADM 08/15/24 Transmitted 18:20 Current Medications Medications (Trade) Dose Ordered Sig/Rose Marie Route PRN Reason Start Time Stop Time Status Last Admin Dose Admin Acetaminophen (TYLenol 325MG TAB) 650 mg ONCE STAT PO 08/15/24 15:37 08/15/24 15:39 DC 08/15/24 15:45 Albuterol (DUOneb) 1 UDVIAL ONCE STAT IH 08/15/24 15:37 08/15/24 15:39 DC 08/15/24 15:41 Ceftriaxone Sodium (ROCEphine 1G INJ) 1 gm ONCE STAT IVPB 08/15/24 18:03 08/15/24 18:05 DC 08/15/24 18:20 Furosemide (LASix 40MG VIAL) 40 mg ONCE STAT IV 08/15/24 17:45 08/15/24 17:49 DC 08/15/24 18:20 Iohexol (Omnipaque) 35,000 mg STK-MED ONCE IV 08/15/24 16:49 08/15/24 16:49 DC Methylprednisolone Sodium Succinate (Solu-medROL 125MG) 125 mg ONCE STAT IVP 08/15/24 15:37 08/15/24 15:39 DC 08/15/24 15:44 Vital Signs Date Time Temp Pulse Resp B/P (MAP) Pulse Ox O2 Delivery O2 Flow Rate FiO2 08/15/24 17:27 99.1 105 22 144/91 92 Nasal Cannula* 2 28 08/15/24 15:45 99.1 08/15/24 15:42 102 22 08/15/24 15:32 99.1 110 26 167/103 88 Room Air* 0 21 08/15/24 15:27 99.1 110 26 167/103 88 Room Air 0 Medical Decision Making MDM MDM: 43-year-old male with a history of hypertension, diabetes, and cholesterol and a previous MN coming in with complaints of fever, cough, congestion or shortness a breath for one week and a half progressively getting worse. Denies having any history of COPD, or asthma but does admit to his smoke daily. As per spouse patient also has had bilateral lower leg swelling. At this time patient complaining of shortness a breath, denies any chest pain, nausea, or vomiting. CBC shows no leukocytosis, no anemia, no thrombocytopenia. D-dimer elevated 606, CTA of the chest ordered. Chemistry shows hyperglycemia at 246mg , negative troponin, BNP of 336. ABGs showed normal pH, hypercapnia 56, and hypoxia 65. Patient was placed on 2 L nasal cannula in his no satting 90% through 93%. Chest x-ray shows stable cardiomegaly, mild pulmonary vascular congestion. CTA shows no PE, bilateral lung infiltrates with minimal bilateral pleural effusions. Patient was given steroids, DuoNebs, Lasix and antibiotics. Patient will be admitted to hospitalist for COPD exacerbation. Spoke to Jacque REGISTERED CLIENT ASSOCIATE for hospitalist, okay to admit. Differential diagnosis: Influenza, COVID, viral syndrome, pneumonia, COPD exacerbation Rationale: Tests considered and ordered secondary to shared decision making include: labs, ECG and radiology Previous outside records reviewed: Old ER visits. Risk of complication and/or morbidity or mortality of patient management: None Medications-Per medication reconciliation Need for hospitalization: Patient does meet criteria for hospitalization. Need for emergency major/minor surgery: No There are no social concerns with this patient. Prescription drug management Prescriptions will include symptomatic care Patient's prior external medical records from other ER visits were reviewed by me as indicated. Prior testing and results from previous visits were reviewed. Prior tests were taken into account with medical decision making and resource utilization, independent historian/historians were used to obtain complete medical history. I independently interpreted the test that were performed, results were reviewed by me and considered findings on radiology if ordered. Medical management and examination interpretation discussions were had by me with other qualified healthcare professionals as indicated for the patient's care. DX & DISP Disposition: Inpatient Decision to Admit Date: Aug 15, 2024 Decision to Admit Time: 18:29 Departure Impression: Primary Impression: COPD with acute exacerbation Condition: Stable Referrals: ANABELL RAM (PCP) I have reviewed the case, and I agree with, Diagnosis and Plan EMPERATRIZ MARQUES NP Aug 15, 2024 16:17
[2024-08-15] MEDS ORDERED: IOHEXOL 350 MG/ML 100ML INFUS..BTL IV ONE (16:49)
[2024-08-15 16:52] LABS: B-TYPE NATRIURETIC PEPTIDE 336 pg/mL (0-100)
[2024-08-15 17:31] VITALS: TEMP 99.1
--- NOTE | 2024-08-15 17:42 | HMCIMG ---
CT CHEST PE PROTOCOL WWO CONT CLINICAL HISTORY: sob, elevated ddimer COMPARISON: 06/19/2023 TECHNIQUE: CT angiography of the chest was performed both before and after intravenous contrast administration. The study was performed using angiographic technique with maximum intensity projection reconstruction images. Patient was given 100 ml of Omnipaque through intravenous route. CT was performed with one or more of the following dose reduction techniques: automated exposure control, adjustment of the mA and/or kV according to patient size, or use of iterative reconstruction technique FINDINGS: There are no filling defects within the pulmonary material vasculature to suggest pulmonary embolism. There is no right ventricular strain. There is advanced calcified coronary disease. The mediastinum is free of pathologic size lymph nodes. Lung parenchyma demonstrates small bilateral patchy infiltrates. This is more prominent in the right lower lobe. There is a small pericardial effusion and minimal bilateral pleural effusions. The visualized abdominal viscera is remarkable for multiple renal cortical cysts. IMPRESSION: No CT angiographic evidence of pulmonary embolus is seen. Bilateral lung infiltrates and minimal bilateral pleural effusions as well as small pericardial effusion. Advanced calcified coronary disease. Polycystic renal disease
[2024-08-15] MEDS: furoSEMIDE 40MG VIAL IV STA (18:20)
[2024-08-15] MEDS: cefTRIAXone 1G VIAL IVPB STA (18:20)
--- NOTE | 2024-08-15 18:39 | HP ---
[facility] Date of Service: Aug 15, 2024 Time of Service: 18:38 PCP: Bridger Jacinto HISTORY OF PRESENT ILLNESS: This is a 43-year-old male with past medical history of hypertension, diabetes, hyperlipidemia, coronary artery disease with cardiac stent x1, obstructive sleep apnea with home CPAP, morbid obesity, nicotine dependence cocaine abuse and medical noncompliance who presented to the ED for complaints of fever, cough, congestion, shortness of breath which started approximately two weeks ago and symptoms have been progressively getting worse. Patient was admitted on February 21, 2024 for ACS and underwent cardiac catheterization on 02/24/2024 which revealed a patent stent to RCA with chronic occlusion of the LAD and then EF of 20% and controlled LV diastolic failure and patient was recommended to have guideline directed medical therapy .Patient states he has been eating a lot of salty foods and drinks lot of water. Patient states he has been off his meds for few months now has not seen his PCP. Patient admits to smoking two packs of cigarettes every day. Patient also admits to using cocaine consumption two days ago. Patient states he knows that he is not supposed to drink a lot of water, and eat a lot of salty foods smoke he just did it he said.Patient denies feeling depressed . Seen and examined patient in the ER awake alert and coherent. Patient denies chest pain, palpitation, nausea, vomiting, abdominal pain and diarrhea. Latest vital signs temperature 98.4, heart rate 100, blood pressure 117/65 saturation 95% on 3 L nasal cannula. CBC is unremarkable. ABG 7.35, CO2 56, PO2 65, bicarb 30, O2 saturation 92 base excess 3.4. BNP 336. CO2 34 glucose 246 troponin 22 urinalysis pending result at this time. Urine toxicology positive for cocaine. Influenza a and B negative SARs COVID negative. Chest x-ray result revealed stable cardiomegaly. Mild pulmonary vascular congestion. CT chest PE protocol result revealed no CT angiographic evidence of pulmonary embolus is seen. Bilateral lung infiltrates and minimal bilateral pleural effusion as well as small pericardial effusion. Advanced calcified coronary disease and polycystic renal disease. While in the ER patient received Rocephin 1 g IV, furosemide 40 mg IV, Tylenol 650 mg p.o., albuterol one neb, and Solu- Medrol 125 mg IV. We will admit patient for further medical management. REVIEW OF SYSTEMS CONSTITUTIONAL: Complains of fever Denies chills, or night sweats. No unintentional weight loss reported. NEUROLOGICAL: Denies headache, amaurosis fugax, motor weakness, sensory deficit, vertigo/spinning sensation, gait abnormalities, or tremors. ENT: No hearing loss, otalgia, otorrhea, rhinitis, rhinorrhea, hoarseness, or sore throat. CARDIOVASCULAR: Complained of swelling to both lower extremities and abdomen , orthopnea. Denies any exertional angina, palpitations, life-threatening arrhythmias, claudication. PULMONARY: Complains of shortness of breaths and occasional dry cough Denies phlegm/sputum, hemoptysis, pleuritic chest pain. SLEEP: Denies morning headaches, daytime somnolence or napping. Denies difficulty falling asleep, staying asleep, waking from sleep. Denies knowledge of snoring. GASTROINTESTINAL: Denies any type of dysphagia to either liquids or solids. Denies nausea, vomiting, pyrosis, early satiety, abdominal pain, diarrhea, constipation, or changes in stool consistency or caliber. Denies coffee-ground emesis, hematemesis, hematochezia, or melanotic stools. GENITOURINARY: Denies frequency, urgency, nocturia, hematuria or incontinence (Storage/Irritative symptoms.) Low urinary stream, straining to void, urinary intermittency or hesitancy, splitting of the voiding stream, terminal dribbling. ENDOCRINOLOGIC: Denies polyuria, polydipsia, polyphagia or heat/cold intolerances. HEMATOLOGIC: Denies thrombophilia/previous clots, or coagulopathy/bleeding disorders. ONCOLOGIC: Denies personal history of malignancy. DERMATOLOGIC: Denies rashes or pruritus. PSYCHIATRIC: Denies any suicidal or homicidal ideation. Denies hallucinations. PAST MEDICAL HISTORY: Obstructive sleep apnea noncompliant with CPAP Diabetes Hyperlipidemia Hypertension Obesity Coronary artery disease Medical noncompliance Cocaine abuse Heavy smoker PAST SURGICAL HISTORY: cardiac stent x1 PAST SOCIAL HISTORY: Patient lives with . Patient states his smoke 2 pack of cigarette per day and stopped drinking alcohol 2 months ago.Patient reports he uses cocaine last consumption 2 days ago but denies marijuana use. Patient states he does not check his blood sugar blood pressure and does not follow up with his PCP FAMILY HISTORY: Hypertension Diabetes Coded Allergies: No Known Drug Allergies (Unverified Allergy, Unknown, 05/09/18) Unable to Assess (Verified Allergy, Unknown, 05/09/18) PHYSICAL EXAM GENERAL APPEARANCE: The patient is awake, alert, and oriented, in no acute cardiopulmonary distress. NEUROLOGICAL: Cranial nerves II-XII grossly intact. Motor is 5/5 in bilateral upper and lower extremities proximal to distal. No sensory deficits. HEENT: Face is symmetric. Pupils are equal and reactive. Extraocular movements are intact. NECK: Supple. No JVD. No thyromegaly. No submental, submandibular, pre- /postauricular, occipital or supraclavicular lymphadenopathy. CHEST: Normal chest expansion. LUNGS: Bilateral Crackles on all lung kaur per auscultation. Absence of wheezing. CARDIOVASCULAR: Regular. S1 and S2 normal. No appreciable rubs, murmurs or gallops. ABDOMEN: Distended and obese Soft and nontender. There is no rebound, voluntary guarding, or rigidity. : Deferred. No [place]. EXTREMITIES: Traces of edema to bilateral extremities and not cyanotic. No clubbing. Good capillary refill. SKIN: No skin breakdown. Vital Sign (Last 24 Hours) 08/15/24 18:28 Temp 98.8 Pulse 103 Resp 22 B/P (MAP) 134/82 Pulse Ox 93 O2 Delivery Nasal Cannula* O2 Flow Rate 2 FiO2 28 LABS: Laboratory: Test 08/15/24 15:59 08/15/24 15:48 08/15/24 15:42 Range/Units Blood Gas Specimen Type Arterial Arterial Blood pH 7.357 7.350-7.450 Arterial Blood Partial Pressure CO2 56 H 35-48 mmHg Arterial Blood Partial Pressure O2 65.5 L 83.0-108.0 mmHg Arterial Blood HCO3 30.4 H 21.0-28.0 mmol/L Arterial Blood Oxygen Saturation 92.9 L 94.0-98.0 % Arterial Blood Base Excess 3.4 H -2.0-3.0 mmol/L Hemoglobin (Blood Gas) 15.4 13.5-17.5 g/dL Sodium (Blood Gas) 143 136-145 MMOL/L Bedside Potassium (Blood Gas) 3.7 3.4-4.5 MMOL/L Bedside Chloride (Blood Gas) 102 98-107 MMOL/L Bedside Glucose (Blood Gas) 266 H 65-95 MG/DL Bedside Ionized Calcium (Blood Gas) 1.19 1.15-1.33 MMOL/L Bedside Lactic Acid (Blood Gas) 1.32 H 0.36-0.75 MMOL/L Blood Gas Temperature 37.0 35.5-37.0 CELSIUS Blood Gas Vent Mode NC ROOM AIR FiO2 32.0 % Blood Gas Specimen Comment RR ABDULLAHI R Influenza Type A Antigen Negative For Type A NEGATIVE Influenza Type B Antigen Negative For Type B NEGATIVE SARS-CoV-2, RNA, NAAT NEGATIVE SARS CoV-2 NEGATIVE White Blood Count 8.4 4.8-10.8 K/uL Red Blood Count 5.36 4.50-6.20 MIL/uL Hemoglobin 15.3 14.0-18.0 g/dL Hematocrit 48.5 42-54 % Mean Corpuscular Volume 90.5 79-99 fL Mean Corpuscular Hemoglobin 28.5 27.0-33.0 pg Mean Corpuscular Hemoglobin Concent 31.5 L 32.0-36.0 g/dL Red Cell Distribution Width 13.5 11.0-15.5 % Platelet Count 340 130-400 K/uL Mean Platelet Volume 9.1 7.5-10.5 fL Immature Granulocyte % (Auto) 0.4 0-1 % Neutrophils (%) (Auto) 73.5 40.0-77.0 % Lymphocytes (%) (Auto) 16.7 L 21.0-51.0 % Monocytes (%) (Auto) 7.6 3.0-13.0 % Eosinophils (%) (Auto) 1.3 0.0-8.0 % Basophils (%) (Auto) 0.5 0.0-5.0 % Neutrophils # (Auto) 6.2 1.8-7.7 K/uL Lymphocytes # (Auto) 1.4 1.0-4.8 K/uL Monocytes # (Auto) 0.6 0.1-1.0 K/uL Eosinophils # (Auto) 0.11 0.00-0.70 K/uL Basophils # (Auto) 0.04 0.00-0.20 K/uL Absolute Immature Granulocyte (auto 0.03 0-1 K/uL Nucleated Red Blood Cells 0.0 0.0-0.19 % D-Dimer Quantitative (PE/DVT) 606 *H 0-500 ng/mL Sodium Level 145 136-145 mmol/L Potassium Level 3.8 3.5-5.1 mmol/L Chloride Level 107 101-111 mmol/L Carbon Dioxide Level 34 H 21-32 mmol/L Blood Urea Nitrogen 15 7-18 mg/dL Creatinine 0.9 0.5-1.3 mg/dL Glomerular Filtration Rate Calc 107 >90 mL/min Random Glucose 246 H 70-105 mg/dL Total Calcium 9.0 8.5-10.1 mg/dL Troponin I High Sensitivity 22 4-75 ng/L B-Type Natriuretic Peptide 336 H 0-100 pg/mL Current Medications Medications (Trade) Dose Ordered Sig/Rose Marie Route PRN Reason Start Time Stop Time Status Last Admin Dose Admin Acetaminophen (TYLenol 325MG TAB) 650 mg ONCE STAT PO 08/15/24 15:37 08/15/24 15:39 DC 08/15/24 15:45 650 MG Albuterol (DUOneb) 1 UDVIAL ONCE STAT IH 08/15/24 15:37 08/15/24 15:39 DC 08/15/24 15:41 1 UDVIAL Ceftriaxone Sodium (ROCEphine 1G INJ) 1 gm ONCE STAT IVPB 08/15/24 18:03 08/15/24 18:05 DC 08/15/24 18:20 1 GM Furosemide (LASix 40MG VIAL) 40 mg ONCE STAT IV 08/15/24 17:45 08/15/24 17:49 DC 08/15/24 18:20 40 MG Methylprednisolone Sodium Succinate (Solu-medROL 125MG) 125 mg ONCE STAT IVP 08/15/24 15:37 08/15/24 15:39 DC 08/15/24 15:44 125 MG DIAGNOSTICS / RADIOLOGY: [ ] ASSESSMENT: Acute hypoxemic respirsatory failure POA Acute on chronic CHF POA Suspected COPD exacerbation POA Nicotine Dependence POA Medical noncompliance POA Obstructive Sleep Apnea POA Coronary artery disease with cardiac stent x1 POA Morbid obesity POA Hypertension POA Uncontrolled diabetes POA Cocaine abuse POA Small pericardial effusion per CT POA PLAN: We will admit patient in medical telemetry We will start patient on heart healthy diet and consistent carb diet We will continue Rocephin 1 g IV daily for empiric coverage We will start on Lasix 40 mg IV b.i.d. We will start on Lovenox 40 mg subQ daily for DVT prophylaxis We will start on Famotidine 20 mg p.o. bid for GI prophylaxis We will replace electrolytes as needed per protocol We will start on insulin sliding scale Q4H with hypoglycemia protocol We will request daily weight and strict I&O We will restrict fluid 1.5 L per day We will seek Cardiology consultation We will seek pulmonology consultation We will request case management service May use oxygen supplementation to keep saturation above 92% We will add prn medication for fever,pain,cough wheezing and shortness of breaths We will reconcile home meds once medlist available We will follow up urinalysis result Counseled on cigarette smoking and cocaine use cessation Patient is counseled on compliance with medication and follow-up appointment and patient needs further reinforcement with education about diet diet,meds and follow up appointment . We will request labs in am Further orders to follow depending on above results Case discussed with attending physician and came up with above treatment and plan of care. ADVANCED CARE PLANNING 1. Which of the following were discussed? Hospice Care - No Therapeutic options -Yes Advance Directives - No Other discussions - 2. Discussed with who? Patient 3. Voluntary nature of this service was explained to the patient? Yes 4. Amount of time spent - _20 5. Reviewed by Physician? (if this service was performed by NPP) Yes Patient seen and examined by me. Agree with note by PRODUCTION CONTROL COORDINATING CLERK SEE ADDITIONAL ORDERS PER CHART DISCUSSED WITH NURSING STAFF STEVE MADISONP Aug 15, 2024 18:39
--- NOTE | 2024-08-15 19:48 | NUR ---
PATIENT REPORTS HE DOES NOT TAKE [facility] HOME MEDICATIONS CURRENTLY
[2024-08-15] MEDS ORDERED: ondanSETRON 4MG INJ IV PRN (20:00)
[2024-08-15] MEDS ORDERED: acetaMINOPHEN 325 MG TAB PO PRN (20:00)
[2024-08-15] MEDS ORDERED: PoTASSium chl 10% ELIXIR 20MEQ 20 MEQ/15 ML UDCUP PO PRN (20:00)
[2024-08-15] MEDS ORDERED: cefTRIAXone 1G VIAL 1 GM in 0.9%NACL 50ML 50 ML IV SCH (20:00)
[2024-08-15] MEDS ORDERED: DEXTROSE 50%-WATER 50 ML DISP.SYRIN IV PRN (20:00)
[2024-08-15] MEDS ORDERED: hydrALAZine 20MG/ML VIAL IV PRN (20:00)
[2024-08-15] MEDS ORDERED: PoTASSium chloRIDE 20MEQ/100ML 100 ML IV PRN (20:00)
[2024-08-15] MEDS ORDERED: GLUCAGON 1MG KIT 1 MG ML IM PRN (20:00)
[2024-08-15] MEDS ORDERED: PoTASSium chloRIDE 20MEQ ER 20 MEQ ERTAB PO PRN (20:00)
[2024-08-15 20:08] LABS: AMPHET/METH SCREEN,URINE NEGATIVE (NEGATIVE); BARBITURATE SCREEN, URINE NEGATIVE (NEGATIVE); BENZODIAZEPINES SCREEN,URINE NEGATIVE (NEGATIVE); CANNABINOID SCREEN,URINE NEGATIVE (NEGATIVE); COCAINE SCREEN,URINE POSITIVE (NEGATIVE); OPIATE SCREEN,URINE NEGATIVE (NEGATIVE); PHENCYCLIDINE SCREEN,URINE NEGATIVE (NEGATIVE)
[2024-08-15 20:39] LABS: ADD UA MICROSCOPIC YES; APPEARANCE,URINE CLEAR (CLEAR); BILIRUBIN,URINE NEGATIVE (NEGATIVE); COLOR,URINE COLORLESS (YELLOW); GLUCOSE, URINE (UA) >=1000 mg/dL (NEGATIVE); KETONES,URINE NEGATIVE (NEGATIVE); LEUKOCYTE ESTERASE ,URINE NEGATIVE Leu/uL (NEGATIVE); NITRATE,URINE NEGATIVE (NEGATIVE); OCCULT BLOOD,URINE NEGATIVE (NEGATIVE); PROTEIN,URINE NEGATIVE (NEGATIVE); UROBILINOGEN,URINE 0.2 mg/dL (0.2-1.0)
[2024-08-15 20:42] LABS: SQUAMOUS EPITHELIAL CELL,UR RARE /HPF (0-2); WBC,URINE 0-1 /HPF (0-1)
[2024-08-15] MEDS: furoSEMIDE 40MG VIAL IVP SCH (20:57)
[2024-08-15] MEDS: cefTRIAXone 1G VIAL IVPB SCH (20:57)
[2024-08-15] MEDS ORDERED: INSULIN humuLIN R 100 UNIT/ML 3ML SQ SCH (21:00)
[2024-08-15] MEDS ORDERED: INSU100V3 SQ (21:18)
--- NOTE | 2024-08-15 21:18 | NUR ---
Jaclyn MADISON NP MADE AWARE OF ACCUCHECK RESULT. ORDERS GIVEN
[2024-08-15] MEDS: FAMOTIDINE 20MG TAB PO SCH (21:27)
[2024-08-15] MEDS: INSULIN humuLIN R 100 UNIT/ML 3ML SQ ONE (21:28)
[2024-08-15 22:35] VITALS: BP 145/83; PULSE 111; RESP 21; TEMP 98.6
[2024-08-15] MEDS: IpraTROPium/alBUTERol SULFATE 3 ML SOLUTION IH SCH (22:57)
[2024-08-15 22:58] VITALS: PULSE 108; RESP 23
[2024-08-16] VITALS (15 sets, daily range): BP systolic 123–147; BP diastolic 72–86; PULSE 80–105; RESP 17–26; TEMP 97–98.9; O2SAT 90–97
[2024-08-16 03:57] LABS: BASOPHILS # (AUTO) 0.01 K/uL (0.00-0.20); BASOPHILS % (AUTO) 0.1 % (0.0-5.0); HEMATOCRIT 49.5 % (42-54); IMMATURE GRANULOCYTE ABSOLUTE 0.03 K/uL (0-1); LYMPHOCYTES # (AUTO) 0.5 K/uL (1.0-4.8); LYMPHOCYTES % (AUTO) 5.5 % (21.0-51.0); MEAN CORPUSCULAR HEMOGLOBIN 28.3 pg (27.0-33.0); MEAN CORPUSCULAR HGB CONC 31.3 g/dL (32.0-36.0); MEAN CORPUSCULAR VOLUME 90.3 fL (79-99); MONOCYTES # (AUTO) 0.3 K/uL (0.1-1.0); MONOCYTES % (AUTO) 3.9 % (3.0-13.0); NEUTROPHILS # (AUTO) 7.4 K/uL (1.8-7.7); NEUTROPHILS % (AUTO) 90.1 % (40.0-77.0); PLATELET COUNT (AUTO) 319 K/uL (130-400); RED BLOOD CELL COUNT(AUTO) 5.48 MIL/uL (4.50-6.20); RED CELL DISTRIBUTION WIDTH 13.3 % (11.0-15.5); WHITE BLOOD COUNT (AUTO) 8.2 K/uL (4.8-10.8)
[2024-08-16 04:14] LABS: ALBUMIN 2.8 g/dL (3.5-5.0); BILIRUBIN,TOTAL 0.2 mg/dL (0.2-1.0); CREATININE 1.2 mg/dL (0.5-1.3); MAGNESIUM 1.9 mg/dL (1.80-2.40); POTASSIUM 4.4 mmol/L (3.5-5.1); TOTAL PROTEIN, SERUM 6.8 g/dL (6.0-8.3)
[2024-08-16 04:16] LABS: HEMOGLOBIN A1C 11.4 % (4.0-6.0)
[2024-08-16 04:24] LABS: B-TYPE NATRIURETIC PEPTIDE 339 pg/mL (0-100)
[2024-08-16] MEDS: INSULIN humuLIN R 100 UNIT/ML 3ML SQ SCH (04:29)
[2024-08-16] MEDS: ENOXAPARIN SODIUM 40 MG/0.4 ML SYRINGE SQ SCH (08:59)
[2024-08-16] MEDS: MAGNESIUM 2GM PREMIX 50ML 50 ML IV PRN (09:01)
[2024-08-16 13:50] LABS: VENT MODE, BG CPAP (ROOM AIR)
[2024-08-16 14:03] LABS: ABG BASE EXCESS 6.5 mmol/L (-2.0-3.0); ABG HCO3 34.7 mmol/L (21.0-28.0); ABG OXYGEN SATURATION 95.2 % (94.0-98.0); ABG PCO2 65 mmHg (35-48); ABG PH 7.344 (7.350-7.450); CPAP, BG 12 cm H2O; VENT MODE, BG CPAP (ROOM AIR)
--- NOTE | 2024-08-16 14:43 | CONS ---
[facility] CONSULTATION NOTE Date Patient Seen: Aug 16, 2024 Time of Visit: 14:43 Supervising Physician: Dr. Rivas Loomis Reason for Consultation: COPD exacerbation Primary Care Physician: [ ] Outpatient Specialists: [ ] Inpatient Consults: [ ] PROBLEM LIST: Acute hypoxemic respirsatory failure POA Acute on chronic CHF POA Suspected COPD exacerbation POA Nicotine Dependence POA Medical noncompliance POA Obstructive Sleep Apnea POA Coronary artery disease with cardiac stent x1 POA Morbid obesity POA Hypertension POA Uncontrolled diabetes POA Cocaine abuse POA Small pericardial effusion per CT POA HPI: Patient is a 43-year-old male who was admitted for acute hypoxic respiratory failure secondary to CHF exacerbation and Chronic obstructive pulmonary disease exacerbation. Patient also has diagnosed obstructive sleep apnea for which he uses a CPAP at home. Patient is currently on CPAP in his room at this time. Per most recent ABG patient was also hypercapnic therefore we will switch this to BiPAP at this time. Patient's glucose on admission was 490, he was started on insulin, A1c is 11.4. Patient's pro BNP on admission was 339. At this time the patient is currently on Rocephin and azithromycin, as well as Lasix 40 mg b.i.d.. No evidence of pulmonary embolism was found on CT scan. Recommendations to continue on nebulizer treatments around the clock, maintain current antibiotic regimen as well as Lasix for diuresis. Patient to remain on BiPAP until ABGs show improvement, RT to titrate as needed. PAST MEDICAL HX: see above PAST SURGICAL HX: noncontributory SOCIAL HISTORY: No tobacco, ETOH, or illicit drug use Coded Allergies: No Known Drug Allergies (Unverified Allergy, Unknown, 05/09/18) Unable to Assess (Verified Allergy, Unknown, 05/09/18) REVIEW OF SYSTEMS: 12 point ROS reviewed with patient. Pertinent positives mentioned above. Otherwise negative. PHYSICAL EXAM: GENERAL: alert, weak, awake oriented x 3 HEENT: EOMI, Sclera non icteric, moist mucosa NECK: Supple, no JVD, trachea midline LUNGS: Clear breath sounds bilaterally. No wheezes HEART: Regular rate and rhythm. Normal S1 and S2, without murmurs ABD: Abdomen soft, nontender. Bowel sounds present EXT: No clubbing cyanosis or edema NEURO: Alert and oriented to person, follows commands Vital Signs (last 8hr) Date Time Temp Pulse Resp B/P (MAP) Pulse Ox O2 Delivery O2 Flow Rate FiO2 08/16/24 14:41 90 20 08/16/24 14:36 80 23 30 08/16/24 10:32 90 17 30 08/16/24 10:00 90 Room Air* 0 21 08/16/24 09:57 98 20 08/16/24 08:00 97.3 103 21 138/86 90 Room Air LABS: Hematology Labs: Test 08/16/24 03:44 Range/Units White Blood Count 8.2 4.8-10.8 K/uL Red Blood Count 5.48 4.50-6.20 MIL/uL Hemoglobin 15.5 14.0-18.0 g/dL Hematocrit 49.5 42-54 % Mean Corpuscular Volume 90.3 79-99 fL Mean Corpuscular Hemoglobin 28.3 27.0-33.0 pg Mean Corpuscular Hemoglobin Concent 31.3 L 32.0-36.0 g/dL Red Cell Distribution Width 13.3 11.0-15.5 % Platelet Count 319 130-400 K/uL Mean Platelet Volume 8.9 7.5-10.5 fL Immature Granulocyte % (Auto) 0.4 0-1 % Neutrophils (%) (Auto) 90.1 H 40.0-77.0 % Lymphocytes (%) (Auto) 5.5 L 21.0-51.0 % Monocytes (%) (Auto) 3.9 3.0-13.0 % Eosinophils (%) (Auto) 0.0 0.0-8.0 % Basophils (%) (Auto) 0.1 0.0-5.0 % Neutrophils # (Auto) 7.4 1.8-7.7 K/uL Lymphocytes # (Auto) 0.5 L 1.0-4.8 K/uL Monocytes # (Auto) 0.3 0.1-1.0 K/uL Eosinophils # (Auto) 0.00 0.00-0.70 K/uL Basophils # (Auto) 0.01 0.00-0.20 K/uL Absolute Immature Granulocyte (auto 0.03 0-1 K/uL Nucleated Red Blood Cells 0.0 0.0-0.19 % White Cell Morphology Comment See comments Chemistry Labs: Test 08/16/24 11:45 08/16/24 03:44 08/15/24 21:00 08/15/24 15:42 Range/Units Whole Blood Glucose 383 H 70-110 MG/DL Sodium Level 142 136-145 mmol/L Potassium Level 4.4 3.5-5.1 mmol/L Chloride Level 102 101-111 mmol/L Carbon Dioxide Level 36 H 21-32 mmol/L Blood Urea Nitrogen 19 H 7-18 mg/dL Creatinine 1.2 0.5-1.3 mg/dL Glomerular Filtration Rate Calc 76 >90 mL/min Random Glucose 490 #*H 70-105 mg/dL Hemoglobin A1c 11.4 H 4.0-6.0 % Estimated Average Glucose (eAG) 280 H 70-126 mg/dL Total Calcium 9.3 8.5-10.1 mg/dL Magnesium Level 1.90 1.80-2.40 mg/dL Total Bilirubin 0.2 0.2-1.0 mg/dL Aspartate Amino Transf (AST/SGOT) 12 10-37 U/L Alanine Aminotransferase (ALT/SGPT) 21 12-78 U/L Alkaline Phosphatase 163 H 50-136 U/L B-Type Natriuretic Peptide 339 H 0-100 pg/mL Total Protein 6.8 6.0-8.3 g/dL Albumin 2.8 L 3.5-5.0 g/dL Triglycerides Level 120 30-200 mg/dL Cholesterol Level 232 H <200 mg/dL LDL Cholesterol 174 H 0-99 mg/dL HDL Cholesterol 29 29-71 mg/dL Bedside Glucose Comment Notified Nurse Troponin I High Sensitivity 22 4-75 ng/L Coagulation Labs: Test 08/15/24 15:42 Range/Units D-Dimer Quantitative (PE/DVT) 606 *H 0-500 ng/mL DIAGNOSTICS / RADIOLOGY RESULTS: [ ] PLAN NEURO: Minimize central acting medications as possible. Maintain fall precautions, adequate lighting during the day PULMONARY: Supplemental 02 as needed. Maintain aspiration precautions at all times CARDIOVASCULAR: Follow hemodynamics. Vital signs per facility protocol GI & NUTRITION: Continue with nutritional support. Continue stool softeners and laxatives as needed. KIDNEYS & ELECTROLYTES: Strict monitoring of intake, output and overall fluid balance. Avoid nephrotoxic medications to the extent possible. Medications to be dosed according to renal function. Monitor electrolytes and replace as needed ENDOCRINE: Maintain blood glucose between 100-180 at all times. Hypoglycemia protocol in place INFECTIOUS DISEASE: Trend temperature, WBC and procalcitonin level Follow cultures, deescalate antibiotics as soon as possible. Panculture if new onset fever ONCOLOGY/HEMATOLOGY/COAGULATION: Monitor for s/s of bleeding Monitor hemoglobin, coagulation studies as needed SKIN: Pressure ulcer prevention per facility protocol Specialty mattress ORTHO/REHAB: Continue PT/OT Prophylaxis: Continue GI and DVT prophylaxis Code Status: Full Resuscitation Disposition: TBD Other: Total patient care time exceeds 35 minutes excluding all procedures. LIANNA TORREZ Aug 16, 2024 14:43
[2024-08-16] MEDS: AZITHROMYCIN 500MG+NS 250ML 250 ML IVPB SCH (15:08)
--- NOTE | 2024-08-16 16:51 | PN ---
[facility] PROGRESS NOTE Date of Service: Aug 16, 2024 Time of Service: 16:51 SUBJECTIVE: [ ] 08/16/24 patient was seen and examined. Case discussed with RN and family by the bedside. Patient was very sleepy today due to hypercarbia likely and he is on a BiPAP we will pulmonology and Cardiology have been consulted. Continue diuresis REVIEW OF SYSTEMS CONSTITUTIONAL: Complains of fever Denies chills, or night sweats. No unintentional weight loss reported. NEUROLOGICAL: Denies headache, amaurosis fugax, motor weakness, sensory deficit, vertigo/spinning sensation, gait abnormalities, or tremors. ENT: No hearing loss, otalgia, otorrhea, rhinitis, rhinorrhea, hoarseness, or sore throat. CARDIOVASCULAR: Complained of swelling to both lower extremities and abdomen , orthopnea. Denies any exertional angina, palpitations, life-threatening arrhythmias, claudication. PULMONARY: Complains of shortness of breaths and occasional dry cough Denies phlegm/sputum, hemoptysis, pleuritic chest pain. SLEEP: Denies morning headaches, daytime somnolence or napping. Denies difficulty falling asleep, staying asleep, waking from sleep. Denies knowledge of snoring. GASTROINTESTINAL: Denies any type of dysphagia to either liquids or solids. Denies nausea, vomiting, pyrosis, early satiety, abdominal pain, diarrhea, constipation, or changes in stool consistency or caliber. Denies coffee-ground emesis, hematemesis, hematochezia, or melanotic stools. GENITOURINARY: Denies frequency, urgency, nocturia, hematuria or incontinence (Storage/Irritative symptoms.) Low urinary stream, straining to void, urinary intermittency or hesitancy, splitting of the voiding stream, terminal dribbling. ENDOCRINOLOGIC: Denies polyuria, polydipsia, polyphagia or heat/cold intolerances. HEMATOLOGIC: Denies thrombophilia/previous clots, or coagulopathy/bleeding disorders. ONCOLOGIC: Denies personal history of malignancy. DERMATOLOGIC: Denies rashes or pruritus. PSYCHIATRIC: Denies any suicidal or homicidal ideation. Denies hallucinations. PHYSICAL EXAM GENERAL APPEARANCE: The patient is awake, alert, and oriented, in no acute cardiopulmonary distress. NEUROLOGICAL: Cranial nerves II-XII grossly intact. Motor is 5/5 in bilateral upper and lower extremities proximal to distal. No sensory deficits. HEENT: Face is symmetric. Pupils are equal and reactive. Extraocular movements are intact. NECK: Supple. No JVD. No thyromegaly. No submental, submandibular, pre- /postauricular, occipital or supraclavicular lymphadenopathy. CHEST: Normal chest expansion. LUNGS: Bilateral Crackles on all lung kaur per auscultation. Absence of wheezing. CARDIOVASCULAR: Regular. S1 and S2 normal. No appreciable rubs, murmurs or gallops. ABDOMEN: Distended and obese Soft and nontender. There is no rebound, voluntary guarding, or rigidity. : Deferred. No [place]. EXTREMITIES: Traces of edema to bilateral extremities and not cyanotic. No clubbing. Good capillary refill. SKIN: No skin breakdown. Vital Signs (last 8hr) Date Time Temp Pulse Resp B/P (MAP) Pulse Ox O2 Delivery O2 Flow Rate FiO2 08/16/24 14:41 90 20 08/16/24 14:36 80 23 30 08/16/24 10:32 90 17 30 08/16/24 10:00 90 Room Air* 0 21 08/16/24 09:57 98 20 LABS: Laboratory: Test 08/16/24 16:07 08/16/24 14:01 08/16/24 03:44 08/15/24 21:00 Range/Units Whole Blood Glucose 157 #H 70-110 MG/DL Blood Gas Specimen Type Arterial Arterial Blood pH 7.344 L 7.350-7.450 Arterial Blood Partial Pressure CO2 65 *H 35-48 mmHg Arterial Blood Partial Pressure O2 82.0 L 83.0-108.0 mmHg Arterial Blood HCO3 34.7 H 21.0-28.0 mmol/L Arterial Blood Oxygen Saturation 95.2 94.0-98.0 % Arterial Blood Base Excess 6.5 H -2.0-3.0 mmol/L Blood Gas Temperature 37.0 35.5-37.0 CELSIUS Blood Gas Vent Mode CPAP ROOM AIR FiO2 30.0 % Blood Gas CPAP 12 cm H2O Blood Gas Specimen Comment CAMRYN,BALJEET SNOWDEN White Blood Count 8.2 4.8-10.8 K/uL Red Blood Count 5.48 4.50-6.20 MIL/uL Hemoglobin 15.5 14.0-18.0 g/dL Hematocrit 49.5 42-54 % Mean Corpuscular Volume 90.3 79-99 fL Mean Corpuscular Hemoglobin 28.3 27.0-33.0 pg Mean Corpuscular Hemoglobin Concent 31.3 L 32.0-36.0 g/dL Red Cell Distribution Width 13.3 11.0-15.5 % Platelet Count 319 130-400 K/uL Mean Platelet Volume 8.9 7.5-10.5 fL Immature Granulocyte % (Auto) 0.4 0-1 % Neutrophils (%) (Auto) 90.1 H 40.0-77.0 % Lymphocytes (%) (Auto) 5.5 L 21.0-51.0 % Monocytes (%) (Auto) 3.9 3.0-13.0 % Eosinophils (%) (Auto) 0.0 0.0-8.0 % Basophils (%) (Auto) 0.1 0.0-5.0 % Neutrophils # (Auto) 7.4 1.8-7.7 K/uL Lymphocytes # (Auto) 0.5 L 1.0-4.8 K/uL Monocytes # (Auto) 0.3 0.1-1.0 K/uL Eosinophils # (Auto) 0.00 0.00-0.70 K/uL Basophils # (Auto) 0.01 0.00-0.20 K/uL Absolute Immature Granulocyte (auto 0.03 0-1 K/uL Nucleated Red Blood Cells 0.0 0.0-0.19 % White Cell Morphology Comment See comments Sodium Level 142 136-145 mmol/L Potassium Level 4.4 3.5-5.1 mmol/L Chloride Level 102 101-111 mmol/L Carbon Dioxide Level 36 H 21-32 mmol/L Blood Urea Nitrogen 19 H 7-18 mg/dL Creatinine 1.2 0.5-1.3 mg/dL Glomerular Filtration Rate Calc 76 >90 mL/min Random Glucose 490 #*H 70-105 mg/dL Hemoglobin A1c 11.4 H 4.0-6.0 % Estimated Average Glucose (eAG) 280 H 70-126 mg/dL Total Calcium 9.3 8.5-10.1 mg/dL Magnesium Level 1.90 1.80-2.40 mg/dL Total Bilirubin 0.2 0.2-1.0 mg/dL Aspartate Amino Transf (AST/SGOT) 12 10-37 U/L Alanine Aminotransferase (ALT/SGPT) 21 12-78 U/L Alkaline Phosphatase 163 H 50-136 U/L B-Type Natriuretic Peptide 339 H 0-100 pg/mL Total Protein 6.8 6.0-8.3 g/dL Albumin 2.8 L 3.5-5.0 g/dL Triglycerides Level 120 30-200 mg/dL Cholesterol Level 232 H <200 mg/dL LDL Cholesterol 174 H 0-99 mg/dL HDL Cholesterol 29 29-71 mg/dL Bedside Glucose Comment Notified Nurse Test 08/15/24 19:53 08/15/24 15:59 08/15/24 15:48 08/15/24 15:42 Range/Units Urine Color COLORLESS YELLOW Urine Appearance CLEAR CLEAR Urine pH 5.0 5.0-8.0 Urine Specific [place] 1.013 1.001-1.031 Urine Protein NEGATIVE NEGATIVE mg/dL Urine Glucose (UA) >=1000 H NEGATIVE mg/dL Urine Ketones NEGATIVE NEGATIVE mg/dL Urine Occult Blood NEGATIVE NEGATIVE Urine Nitrate NEGATIVE NEGATIVE Urine Bilirubin NEGATIVE NEGATIVE mg/dL Urine Urobilinogen 0.2 0.2-1.0 mg/dL Urine Leukocyte Esterase NEGATIVE NEGATIVE Micah/uL Urine RBC 2-5 H 0-1 /HPF Urine WBC 0-1 0-1 /HPF Urine Squamous Epithelial Cells RARE 0-2 /HPF Urine Bacteria None None Seen /HPF Urine Opiates Screen NEGATIVE NEGATIVE Urine Barbiturates Screen NEGATIVE NEGATIVE Urine Phencyclidine Screen NEGATIVE NEGATIVE Urine Amphetamines Screen NEGATIVE NEGATIVE Urine Benzodiazepines Screen NEGATIVE NEGATIVE Urine Cocaine Screen POSITIVE H NEGATIVE Urine Marijuana (THC) Screen NEGATIVE NEGATIVE Hemoglobin (Blood Gas) 15.4 13.5-17.5 g/dL Sodium (Blood Gas) 143 136-145 MMOL/L Bedside Potassium (Blood Gas) 3.7 3.4-4.5 MMOL/L Bedside Chloride (Blood Gas) 102 98-107 MMOL/L Bedside Glucose (Blood Gas) 266 H 65-95 MG/DL Bedside Ionized Calcium (Blood Gas) 1.19 1.15-1.33 MMOL/L Bedside Lactic Acid (Blood Gas) 1.32 H 0.36-0.75 MMOL/L Influenza Type A Antigen Negative For Type A NEGATIVE Influenza Type B Antigen Negative For Type B NEGATIVE SARS-CoV-2, RNA, NAAT NEGATIVE SARS CoV-2 NEGATIVE D-Dimer Quantitative (PE/DVT) 606 *H 0-500 ng/mL Troponin I High Sensitivity 22 4-75 ng/L Current Medications Medications (Trade) Dose Ordered Sig/Rose Marie Route PRN Reason Start Time Stop Time Status Last Admin Dose Admin Acetaminophen (TYLenol 325MG TAB) 650 mg ONCE STAT PO 08/15/24 15:37 08/15/24 15:39 DC 08/15/24 15:45 650 MG Acetaminophen (TYLenol 325MG TAB) 650 mg Q4H PRN PO MILD PAIN (1-3) 08/15/24 20:00 09/14/24 19:59 Acetaminophen (TYLenol 325MG TAB) 650 mg Q6H PRN PO TEMPERATURE GREATER THAN 101.5 08/15/24 20:00 09/14/24 19:59 Albuterol (DUOneb) 1 UDVIAL ONCE STAT IH 08/15/24 15:37 08/15/24 15:39 DC 08/15/24 15:41 1 UDVIAL Albuterol (DUOneb) 1 udvial [id number] IH 08/15/24 22:00 09/14/24 21:59 08/16/24 14:39 1 UDVIAL Azithromycin 250 ml @ 250 mls/hr Q24H IVPB 08/16/24 15:00 08/26/24 14:59 08/16/24 15:08 250 MLS/HR Ceftriaxone Sodium 1 gm/ Sodium Chloride 50 ml @ 100 mls/hr Q24H IV 08/15/24 20:00 08/15/24 20:40 DC Ceftriaxone Sodium (ROCEphine 1G INJ) 1 gm ONCE STAT IVPB 08/15/24 18:03 08/15/24 18:05 DC 08/15/24 18:20 1 GM Ceftriaxone Sodium (ROCEphine 1G INJ) 1 gm Q24H IVPB 08/15/24 21:00 08/25/24 20:59 Dextrose (D50w) 50 ml AD PRN IV HYPOGLYCEMIA PROTOCOL 08/15/24 20:00 09/14/24 19:59 Enoxaparin Sodium (Lovenox) 40 mg DAILY SQ 08/16/24 09:00 09/15/24 08:59 08/16/24 08:59 40 MG Famotidine (Pepcid 20mg Tab) 20 mg BID PO 08/15/24 21:00 09/14/24 20:59 08/16/24 08:59 20 MG Furosemide (LASix 40MG VIAL) 40 mg BID IVP 08/15/24 21:00 09/14/24 20:59 08/16/24 08:59 40 MG Furosemide (LASix 40MG VIAL) 40 mg ONCE STAT IV 08/15/24 17:45 08/15/24 17:49 DC 08/15/24 18:20 40 MG Glucagon (Glucagon 1mg Kit) 1 mg AD PRN IM HYPOGLYCEMIA PROTOCOL 08/15/24 20:00 09/14/24 19:59 Guaifenesin/ Dextromethorphan (RobiTUSSin DM 200/20MG 10ML) 10 ml Q4H PRN PO COUGH 08/15/24 20:00 09/14/24 19:59 Hydralazine HCl (APRESOLine 20MG INJ) 10 mg Q6H PRN IV For:SBP above 160;DBP above 90 08/15/24 20:00 09/14/24 19:59 Insulin Human Regular (humuLIN R 100 UNIT/ML 3ML) INSULIN SLIDING SCAL... ACHS SQ 08/15/24 21:00 08/15/24 21:18 DC Insulin Human Regular (humuLIN R 100 UNIT/ML 3ML) INSULIN SLIDING SCAL... Q4H4 SQ 08/16/24 00:00 09/15/24 00:00 08/16/24 12:02 16 UNIT Magnesium Sulfate 50 ml @ 0 mls/hr PROTOCOL PRN IV OTHER [SEE ORDER COMMENTS] 08/15/24 20:00 09/14/24 19:59 08/16/24 09:01 25 MLS/HR Methylprednisolone Sodium Succinate (Solu-medROL 125MG) 125 mg ONCE STAT IVP 08/15/24 15:37 08/15/24 15:39 DC 08/15/24 15:44 125 MG Ondansetron HCl (zoFRAN 4MG INJ) 4 mg Q6H PRN IV NAUSEA/VOMITING 08/15/24 20:00 09/14/24 19:59 Potassium Chloride 100 ml @ 100 mls/hr AD PRN IV POTASSIUM PROTOCOL 08/15/24 20:00 09/14/24 19:59 Potassium Chloride (K-Dur/Klor-Con 20meq) 20 meq AD PRN PO POTASSIUM PROTOCOL 08/15/24 20:00 09/14/24 19:59 Potassium Chloride (KCl 10% Elixir 20meq/15ml) 20 meq AD PRN PO POTASSIUM PROTOCOL 08/15/24 20:00 09/14/24 19:59 DIAGNOSTICS / RADIOLOGY: [ ] ASSESSMENT: Acute hypoxemic respirsatory failure POA Acute on chronic CHF POA Suspected COPD exacerbation POA Nicotine Dependence POA Medical noncompliance POA Obstructive Sleep Apnea POA Coronary artery disease with cardiac stent x1 POA Morbid obesity POA Hypertension POA Uncontrolled diabetes POA Cocaine abuse POA Small pericardial effusion per CT POA PLAN: We will admit patient in medical telemetry We will start patient on heart healthy diet and consistent carb diet We will continue Rocephin 1 g IV daily for empiric coverage We will start on Lasix 40 mg IV b.i.d. We will start on Lovenox 40 mg subQ daily for DVT prophylaxis We will start on Famotidine 20 mg p.o. bid for GI prophylaxis We will replace electrolytes as needed per protocol We will start on insulin sliding scale Q4H with hypoglycemia protocol We will request daily weight and strict I&O We will restrict fluid 1.5 L per day We will seek Cardiology consultation We will seek pulmonology consultation We will request case management service May use oxygen supplementation to keep saturation above 92% We will add prn medication for fever,pain,cough wheezing and shortness of breaths We will reconcile home meds once medlist available We will follow up urinalysis result Counseled on cigarette smoking and cocaine use cessation Patient is counseled on compliance with medication and follow-up appointment and patient needs further reinforcement with education about diet diet,meds and follow up appointment . We will request labs in am Further orders to follow depending on above results Case discussed with attending physician and came up with above treatment and plan of care. LORETO SPRAGUE MD Aug 16, 2024 16:51
[2024-08-16 17:18] LABS: ABG BASE EXCESS 7.9 mmol/L (-2.0-3.0); ABG HCO3 35.1 mmol/L (21.0-28.0); ABG OXYGEN SATURATION 92.7 % (94.0-98.0); ABG PCO2 59 mmHg (35-48); ABG PH 7.389 (7.350-7.450); VENT MODE, BG BIPAP 12,6 (ROOM AIR)
--- NOTE | 2024-08-16 18:30 | CONS ---
Acute hypoxemic respirsatory failure POA Acute on chronic systolic CHF POA Suspected COPD exacerbation POA Nicotine Dependence POA Medical noncompliance POA Obstructive Sleep Apnea POA, noncompliant with treatment Coronary artery disease with cardiac stent x1 POA Morbid obesity POA Hypertension POA Uncontrolled diabetes POA Cocaine abuse POA Small pericardial effusion per CT POA About two weeks ago the patient began to experience some edema which rapidly progressed, then he became short of breath and began to have a dry cough followed by production of phlegm which turned from white to yellow in the last few days, and now he has presented with class four dyspnea. He has not had any chest pain or chest pressure, only shortness of breath and edema. ROS is notable for dyspnea, orthopnea, and edema, along with abdominal discomfort and constipation and loss of appetite. Patient denies palpitations, chest pain, syncope or presyncope, focal weakness or confusion, dysuria or renal problems, claudication or skin breakdown, or any neurologic symptoms. Physical exam shows obese patient with heavy neck using BiPAP, still short of breath. Neck veins are impossible to evaluate under the circumstances but carotid volume is normal. Chest is actually clear to auscultation and heart tones are distant without a murmur, rhythm is regular and S1 and S2 are normal relative to each other. Abdomen is protuberant and bowel sounds are present. Extremities are notable only for trace edema at this point and peripheral pulses are intact. Chest x-ray and CT show pulmonary venous congestion and infiltrates, and BNP is in the mid 300 range. Impression and recommendation: Patient is a smoking cocaine abusing noncompliant patient who has history of congestive heart failure and sleep apnea but does not accept use of CPAP except now when he requires BiPAP to breathe at rest. I have discussed the need for CPAP or BiPAP and I have discussed the radically different prognosis if he uses it or not, and I have also advised him that we can use diuretics to improve his respiratory status but this will not improve the underlying condition. We will institute guideline directed medical therapy, treat with BiPAP until he can be weaned to CPAP, and diurese for pulmonary congestion. Patient History: Diabetes mellitus MOTHER FATHER Hypertension MOTHER FATHER Vitals/Labs Vital Signs Date Time Temp Pulse Resp B/P (MAP) Pulse Ox O2 Delivery O2 Flow Rate FiO2 08/16/24 14:41 90 20 08/16/24 14:36 30 08/16/24 10:00 90 Room Air* 0 08/16/24 08:00 97.3 138/86 Laboratory Tests 08/16/24 03:44 Allergies: Coded Allergies: No Known Drug Allergies (Unverified Allergy, Unknown, 05/09/18) Unable to Assess (Verified Allergy, Unknown, 05/09/18) Medications Current Medications Methylprednisolone Sodium Succinate 125 mg ONCE STAT IVP Last administered on 08/15/24at 15:44; Start 08/15/24 at 15:37; Stop 08/15/24 at 15:39; Status DC Albuterol 1 UDVIAL ONCE STAT IH Last administered on 08/15/24at 15:41; Start 08/15/24 at 15:37; Stop 08/15/24 at 15:39; Status DC Acetaminophen 650 mg ONCE STAT PO Last administered on 08/15/24at 15:45; Start 08/15/24 at 15:37; Stop 08/15/24 at 15:39; Status DC Iohexol 35,000 mg STK-MED ONCE IV; Start 08/15/24 at 16:49; Stop 08/15/24 at 16:49; Status DC Furosemide 40 mg ONCE STAT IV Last administered on 08/15/24at 18:20; Start 08/15/24 at 17:45; Stop 08/15/24 at 17:49; Status DC Ceftriaxone Sodium 1 gm ONCE STAT IVPB Last administered on 08/15/24at 18:20; Start 08/15/24 at 18:03; Stop 08/15/24 at 18:05; Status DC Acetaminophen 650 mg Q6H PRN PO; Start 08/15/24 at 20:00; Stop 09/14/24 at 19:59 Acetaminophen 650 mg Q4H PRN PO; Start 08/15/24 at 20:00; Stop 09/14/24 at 19:59 Ondansetron HCl 4 mg Q6H PRN IV; Start 08/15/24 at 20:00; Stop 09/14/24 at 19:59 Guaifenesin/ Dextromethorphan 10 ml Q4H PRN PO; Start 08/15/24 at 20:00; Stop 09/14/24 at 19:59 Albuterol 1 udvial [id number] IH Last administered on 08/16/24at 14:39; Start 08/15/24 at 22:00; Stop 09/14/24 at 21:59 Famotidine 20 mg BID PO Last administered on 08/16/24at 08:59; Start 08/15/24 at 21:00; Stop 09/14/24 at 20:59 Furosemide 40 mg BID IVP Last administered on 08/16/24at 08:59; Start 08/15/24 at 21:00; Stop 09/14/24 at 20:59 Enoxaparin Sodium 40 mg DAILY SQ Last administered on 08/16/24at 08:59; Start 08/16/24 at 09:00; Stop 09/15/24 at 08:59 Ceftriaxone Sodium 1 gm/ Sodium Chloride 50 ml @ 100 mls/hr Q24H IV; Start 08/15/24 at 20:00; Stop 08/15/24 at 20:40; Status DC Hydralazine HCl 10 mg Q6H PRN IV; Start 08/15/24 at 20:00; Stop 09/14/24 at 19:59 Insulin Human Regular INSULIN SLIDING SCAL... ACHS SQ; Start 08/15/24 at 21:00; Stop 08/15/24 at 21:18; Status DC Dextrose 50 ml AD PRN IV; Start 08/15/24 at 20:00; Stop 09/14/24 at 19:59 Glucagon 1 mg AD PRN IM; Start 08/15/24 at 20:00; Stop 09/14/24 at 19:59 Magnesium Sulfate 50 ml @ 0 mls/hr PROTOCOL PRN IV Last administered on 08/16/24at 09:01; Start 08/15/24 at 20:00; Stop 09/14/24 at 19:59 Potassium Chloride 100 ml @ 100 mls/hr AD PRN IV; Start 08/15/24 at 20:00; Stop 09/14/24 at 19:59 Potassium Chloride 20 meq AD PRN PO; Start 08/15/24 at 20:00; Stop 09/14/24 at 19:59 Potassium Chloride 20 meq AD PRN PO; Start 08/15/24 at 20:00; Stop 09/14/24 at 19:59 Ceftriaxone Sodium 1 gm Q24H IVPB; Start 08/15/24 at 21:00; Stop 08/25/24 at 20:59 Insulin Human Regular 10 unit ONCE ONCE SQ Last administered on 08/15/24at 21:28; Start 08/15/24 at 21:30; Stop 08/15/24 at 21:31; Status DC Insulin Human Regular INSULIN SLIDING SCAL... Q4H4 SQ Last administered on 08/16/24at 12:02; Start 08/16/24 at 00:00; Stop 09/15/24 at 00:00 Azithromycin 250 ml @ 250 mls/hr Q24H IVPB Last administered on 08/16/24at 15:08; Start 08/16/24 at 15:00; Stop 08/26/24 at 14:59 ROLAND CHIRINOS MD Aug 16, 2024 18:30
--- NOTE | 2024-08-16 20:50 | EKG ---
[facility] Test Date: 2024-08-15 Test Time: 15:27:48 Pat Name: ROLAND HOFFMAN Department: [facility] Room: 408 1 Gender: M [employer] Clerk: [id number] : 1980 Requested By: EMPERATRIZ MARQUES Order Number: [id number] Reading MD: Loida Leal Measurements Intervals [place] Rate: 105 P: 74 [place]: 191 QRS: 20 QRSD: 113 T: 89 QT: 366 QTc: 484 Interpretive Statements Sinus tachycardia Probable left atrial enlargement Probable anteroseptal infarct, old Nonspecific T abnormalities, lateral leads Compared to ECG 02/22/2024 21:57:29 Myocardial infarct finding now present T-wave abnormality now present Sinus rhythm no longer present First degree AV block no longer present Right-axis deviation no longer present Electronically Signed On 08-17-2024 09:14:37 LOGISTICS ASSOCIATE by Loida Leal Please click the below link to view image of tracing.
[2024-08-17] VITALS (19 sets, daily range): BP systolic 118–135; BP diastolic 70–85; PULSE 63–108; RESP 16–22; TEMP 97.3–98.6; O2SAT 93–98
--- NOTE | 2024-08-17 09:08 | NUR ---
SUGAR CHECK: 554. SUGAR COVERED WITH 16 UNITS OF INSULIN. PATIENT EDUCATED ON THE IMPORTANCE OF KEEPING SUGARS DOWN AND NOT EATING OUTSIDE FOOD. PATIENT VERBALIZES UNDERSTANDING. PLAN OF CARE ON GOING.
--- NOTE | 2024-08-17 13:02 | NUR ---
SPOKE WITH DR HERNANDEZ REGARDING PATIENT'S HIGH BLOOD SUGAR OF 561. NEW ORDERS TO CONTINUE WITH SLIDING AND HE WILL RE-EVALUATE PATIENT'S CHART AND AMOUNT OF INSULIN HE'S RECEIVED TODAY AND WILL ADJUST NEEDED. PLAN OF CARE ON GOING.
[2024-08-17] MEDS: guaiFENesin-DM 200/20MG 10ML PO PRN (13:10)
[2024-08-17] MEDS: LACTULOSE 20 GM/30 ML UDCUP ONE (13:33)
--- NOTE | 2024-08-17 13:36 | HMCSR ---
APPROVED REPORT EXAM: Two-dimensional and M-mode echocardiogram with Doppler and color Doppler. INDICATION ICD: Congestive heart failure 2D Dimensions RVDd4.4 cmLVEF(%)45.4 (>50%)LVED Vol(simp.)154.0 mL IVSd1.7 (0.7-1.1cm)FS(%)23 %LVES Vol(simp.)81.2 mL LVDd6.5 (3.8-5.6cm)LA (2D)5.9 (1.6-4.0cm)LVEF(%, simp.)47 % PWd1.7 (0.7-1.1cm)Ao Root(2D)3.2 (2.0-3.7cm)LA ESV INDEX (4CH)27.30 mL/m2 IVSs1.8 cmLVOT diam2.5 (1.8-2.4cm)LA ESV INDEX (2CH)29.00 mL/m2 LVDs5.0 (2.5-4.0cm)LA ESV INDEX (BP)31.00 mL/m2 PWs1.6 cm Deformation Strain Apical 414.0 % Apical 213.0 % Apical 312.0 % Global Anqmti47.0 % M-Mode Dimensions EPSS1.3 cm LA (MM)5.8 (1.6-4.0cm) Ao Root(MM)3.3 (2.0-3.7cm) Aortic Valve AoV VTI0.3 mAo Mean GR7.0 mmHgLVOT VTI0.20 m VIKTORIA (VMAX)3.7 cm2AVA (VTI) 3.7 cm2 Mitral Valve MV E Etbp545.5 cm/sDECEL Pudk672 ms MV A Vmax69.4 cm/sP 1/2 T68 ms E/A ratio1.9MVA (PHT)3.2 cm2 TDI E/E' Zmtfgj99.2E/E' Zuojhia18.6 Medial E' Peak V7.10 cm/sLateral E' Peak V10.30 cm/s Pulmonary Valve PV Vmax1.3 m/s PV Peak GR6.4 mmHg Tricuspid Valve RAP (EST) 3 mmHgRVSP3.0 mmHg Left Ventricle Left ventricular cavity size is normal. Reduced GLS-13.0% Anterior, anterolateral wall is hypokinetic . Moderate concentric left ventricular hypertrophy, with exception of the relative thinning of the an terior wall. LVEF is 45-50%. Diastolic function is within normal parameters. Right Ventricle The right ventricle is mildly dilated. The right ventricular systolic function is normal. Atria The left atrium size is normal. The right atrium is mildly dilated. Aortic Valve The aortic valve is trileaflet normal in structure and function. No aortic regurgitation is present. There is no aortic valvular stenosis. Mitral Valve Mitral valve leaflets appear normal. Mitral valve leaflets open well. There is mild mitral valve regu rgitation noted. There is no mitral valve stenosis. Tricuspid Valve The tricuspid valve is normal in structure and function. There is no tricuspid valve regurgitation no leighann. Pulmonic Valve Pulmonic valve is not well visualized. There is no pulmonic valvular regurgitation. Great Vessels The aortic root is normal in size. The IVC is normal in size and collapses >50% with inspiration. Pericardium No pericardial effusion. Other Information Quality : Technically difficult study due to body habitusRhythm : NSR Conclusion Technically difficult study with suboptimal acoustic windows. LVEF is 45-50%. Moderate concentric left ventricular hypertrophy, with exception of the relative thinning of the ante rior wall. Anterior, anterolateral wall is hypokinetic. Reduced GLS-13.0% There is mild mitral valve regurgitation.
--- NOTE | 2024-08-17 14:38 | NUR ---
Nutrition consult per nutrition education Reviewed labs, notes, and medications. Cocaine abuse POA, medical non-compliance POA, nicotine dependence, on 60 gm cho, insulin, diuretics, hyperglycemia 561, A1C 11.4, elevated cholesterol, elevated LDL 174 per chart review. No edema, well nourished, no wounds, 3200ml balance 08/16/24, 50%PO intake, wt via standing scale per nursing. Pt with non-severe PCM, Supplement thiamin 100 mg/day for 5-7 days + MVI QD for at least 10 days. Recommendations: -Provide 60 gm cho + HH diet -Fluid restriction per MD -Monitor PO intake -Encourage PO intake as able -Monitor BM -If no BM >3 days consider stool softener -Monitor electrolytes -Replenish electrolytes per protocol -Monitor wts -Reweigh as able -Order Vit D, vit b-12 labs to rule out deficiencies -Provide b-complex QD -Recommend Pt to follow up with PCP -Monitor goals of care RD to follow + available for consult per protocol Addendum: 08/17/24 at [address] Amended: Links added.
--- NOTE | 2024-08-17 15:33 | NUR ---
DC PLAN VISITED WITH PATIENT. PATIENT LIVES WITH SPOUSE. INDEPENDENT ABLE TO PERFORM ADL'S. PATIENT HAS NO SERVICES OR DME'S. LOW INCOME CLINIC INFO GIVEN SELF PAY MEDICATIONS LIST GIVEN. PATIENT DID NOT APPEAR TO WANT TO ANSWER QUESTIONS. COUGHING A LOT. LET NURSE KNOW OF COUGHING AND INFO GIVEN. Addendum: 08/17/24 at 1535 by BARBARA HERNANDEZ RN CM Amended: Links added.
--- NOTE | 2024-08-17 15:45 | PN ---
[facility] PROGRESS NOTE Date of Service: Aug 17, 2024 Time of Service: 15:40 SUBJECTIVE: [ ] 08/16/24 patient was seen and examined. Case discussed with RN and family by the bedside. Patient was very sleepy today due to hypercarbia likely and he is on a BiPAP we will pulmonology and Cardiology have been consulted. Continue diuresis 08/17/24 Patient reports eating sugary snacks which elevated his blood sugars. Otherwise no new complaints or concerns no acute events reported overnight. REVIEW OF SYSTEMS CONSTITUTIONAL: Complains of fever Denies chills, or night sweats. No unintentional weight loss reported. NEUROLOGICAL: Denies headache, amaurosis fugax, motor weakness, sensory deficit, vertigo/spinning sensation, gait abnormalities, or tremors. ENT: No hearing loss, otalgia, otorrhea, rhinitis, rhinorrhea, hoarseness, or sore throat. CARDIOVASCULAR: Complained of swelling to both lower extremities and abdomen , orthopnea. Denies any exertional angina, palpitations, life-threatening arrhythmias, claudication. PULMONARY: Complains of shortness of breaths and occasional dry cough Denies phlegm/sputum, hemoptysis, pleuritic chest pain. SLEEP: Denies morning headaches, daytime somnolence or napping. Denies difficulty falling asleep, staying asleep, waking from sleep. Denies knowledge of snoring. GASTROINTESTINAL: Denies any type of dysphagia to either liquids or solids. Denies nausea, vomiting, pyrosis, early satiety, abdominal pain, diarrhea, constipation, or changes in stool consistency or caliber. Denies coffee-ground emesis, hematemesis, hematochezia, or melanotic stools. GENITOURINARY: Denies frequency, urgency, nocturia, hematuria or incontinence (Storage/Irritative symptoms.) Low urinary stream, straining to void, urinary intermittency or hesitancy, splitting of the voiding stream, terminal dribbling. ENDOCRINOLOGIC: Denies polyuria, polydipsia, polyphagia or heat/cold intoleran lopez. HEMATOLOGIC: Denies thrombophilia/previous clots, or coagulopathy/bleeding disorders. ONCOLOGIC: Denies personal history of malignancy. DERMATOLOGIC: Denies rashes or pruritus. PSYCHIATRIC: Denies any suicidal or homicidal ideation. Denies hallucinations. PHYSICAL EXAM GENERAL APPEARANCE: The patient is awake, alert, and oriented, in no acute cardiopulmonary distress. NEUROLOGICAL: Cranial nerves II-XII grossly intact. Motor is 5/5 in bilateral upper and lower extremities proximal to distal. No sensory deficits. HEENT: Face is symmetric. Pupils are equal and reactive. Extraocular movements are intact. NECK: Supple. No JVD. No thyromegaly. No submental, submandibular, pre- /postauricular, occipital or supraclavicular lymphadenopathy. CHEST: Normal chest expansion. LUNGS: Bilateral Crackles on all lung kaur per auscultation. Absence of wheezing. CARDIOVASCULAR: Regular. S1 and S2 normal. No appreciable rubs, murmurs or gallops. ABDOMEN: Distended and obese Soft and nontender. There is no rebound, voluntary guarding, or rigidity. : Deferred. No [place]. EXTREMITIES: Traces of edema to bilateral extremities and not cyanotic. No clubbing. Good capillary refill. SKIN: No skin breakdown. Vital Signs (last 8hr) Date Time Temp Pulse Resp B/P (MAP) Pulse Ox O2 Delivery O2 Flow Rate FiO2 08/17/24 13:34 102 20 N/Cannula Low lpm 3.0 32 08/17/24 13:32 102 20 08/17/24 12:06 97.9 108 19 129/72 94 Nasal Cannula 3.0 08/17/24 10:49 103 20 N/Cannula Low lpm 3.0 32 08/17/24 10:46 103 20 08/17/24 09:00 96 Nasal Cannula* 3 32 08/17/24 08:17 98.6 100 19 135/81 94 Room Air LABS: Laboratory: Test 08/17/24 11:53 08/17/24 05:03 08/16/24 17:17 08/16/24 14:01 Range/Units Whole Blood Glucose 561 *H 70-110 MG/DL Bedside Glucose Comment Protocol Initiated Procalcitonin < 0.05 L 0.05-0.5 ng/mL Blood Gas Specimen Type Arterial Arterial Blood pH 7.389 7.350-7.450 Arterial Blood Partial Pressure CO2 59 H 35-48 mmHg Arterial Blood Partial Pressure O2 67.0 L 83.0-108.0 mmHg Arterial Blood HCO3 35.1 H 21.0-28.0 mmol/L Arterial Blood Oxygen Saturation 92.7 L 94.0-98.0 % Arterial Blood Base Excess 7.9 H -2.0-3.0 mmol/L Blood Gas Temperature 37.0 35.5-37.0 CELSIUS Blood Gas Respiration Rate 20.0 min. Blood Gas Vent Mode BIPAP 12,6 ROOM AIR FiO2 30.0 % Blood Gas Specimen Comment LR, RN SP Blood Gas CPAP 12 cm H2O Test 08/16/24 03:44 08/15/24 19:53 08/15/24 15:59 08/15/24 15:48 Range/Units White Blood Count 8.2 4.8-10.8 K/uL Red Blood Count 5.48 4.50-6.20 MIL/uL Hemoglobin 15.5 14.0-18.0 g/dL Hematocrit 49.5 42-54 % Mean Corpuscular Volume 90.3 79-99 fL Mean Corpuscular Hemoglobin 28.3 27.0-33.0 pg Mean Corpuscular Hemoglobin Concent 31.3 L 32.0-36.0 g/dL Red Cell Distribution Width 13.3 11.0-15.5 % Platelet Count 319 130-400 K/uL Mean Platelet Volume 8.9 7.5-10.5 fL Immature Granulocyte % (Auto) 0.4 0-1 % Neutrophils (%) (Auto) 90.1 H 40.0-77.0 % Lymphocytes (%) (Auto) 5.5 L 21.0-51.0 % Monocytes (%) (Auto) 3.9 3.0-13.0 % Eosinophils (%) (Auto) 0.0 0.0-8.0 % Basophils (%) (Auto) 0.1 0.0-5.0 % Neutrophils # (Auto) 7.4 1.8-7.7 K/uL Lymphocytes # (Auto) 0.5 L 1.0-4.8 K/uL Monocytes # (Auto) 0.3 0.1-1.0 K/uL Eosinophils # (Auto) 0.00 0.00-0.70 K/uL Basophils # (Auto) 0.01 0.00-0.20 K/uL Absolute Immature Granulocyte (auto 0.03 0-1 K/uL Nucleated Red Blood Cells 0.0 0.0-0.19 % White Cell Morphology Comment See comments Sodium Level 142 136-145 mmol/L Potassium Level 4.4 3.5-5.1 mmol/L Chloride Level 102 101-111 mmol/L Carbon Dioxide Level 36 H 21-32 mmol/L Blood Urea Nitrogen 19 H 7-18 mg/dL Creatinine 1.2 0.5-1.3 mg/dL Glomerular Filtration Rate Calc 76 >90 mL/min Random Glucose 490 #*H 70-105 mg/dL Hemoglobin A1c 11.4 H 4.0-6.0 % Estimated Average Glucose (eAG) 280 H 70-126 mg/dL Total Calcium 9.3 8.5-10.1 mg/dL Magnesium Level 1.90 1.80-2.40 mg/dL Total Bilirubin 0.2 0.2-1.0 mg/dL Aspartate Amino Transf (AST/SGOT) 12 10-37 U/L Alanine Aminotransferase (ALT/SGPT) 21 12-78 U/L Alkaline Phosphatase 163 H 50-136 U/L B-Type Natriuretic Peptide 339 H 0-100 pg/mL Total Protein 6.8 6.0-8.3 g/dL Albumin 2.8 L 3.5-5.0 g/dL Triglycerides Level 120 30-200 mg/dL Cholesterol Level 232 H <200 mg/dL LDL Cholesterol 174 H 0-99 mg/dL HDL Cholesterol 29 29-71 mg/dL Urine Color COLORLESS YELLOW Urine Appearance CLEAR CLEAR Urine pH 5.0 5.0-8.0 Urine Specific [place] 1.013 1.001-1.031 Urine Protein NEGATIVE NEGATIVE mg/dL Urine Glucose (UA) >=1000 H NEGATIVE mg/dL Urine Ketones NEGATIVE NEGATIVE mg/dL Urine Occult Blood NEGATIVE NEGATIVE Urine Nitrate NEGATIVE NEGATIVE Urine Bilirubin NEGATIVE NEGATIVE mg/dL Urine Urobilinogen 0.2 0.2-1.0 mg/dL Urine Leukocyte Esterase NEGATIVE NEGATIVE Micah/uL Urine RBC 2-5 H 0-1 /HPF Urine WBC 0-1 0-1 /HPF Urine Squamous Epithelial Cells RARE 0-2 /HPF Urine Bacteria None None Seen /HPF Urine Opiates Screen NEGATIVE NEGATIVE Urine Barbiturates Screen NEGATIVE NEGATIVE Urine Phencyclidine Screen NEGATIVE NEGATIVE Urine Amphetamines Screen NEGATIVE NEGATIVE Urine Benzodiazepines Screen NEGATIVE NEGATIVE Urine Cocaine Screen POSITIVE H NEGATIVE Urine Marijuana (THC) Screen NEGATIVE NEGATIVE Hemoglobin (Blood Gas) 15.4 13.5-17.5 g/dL Sodium (Blood Gas) 143 136-145 MMOL/L Bedside Potassium (Blood Gas) 3.7 3.4-4.5 MMOL/L Bedside Chloride (Blood Gas) 102 98-107 MMOL/L Bedside Glucose (Blood Gas) 266 H 65-95 MG/DL Bedside Ionized Calcium (Blood Gas) 1.19 1.15-1.33 MMOL/L Bedside Lactic Acid (Blood Gas) 1.32 H 0.36-0.75 MMOL/L Influenza Type A Antigen Negative For Type A NEGATIVE Influenza Type B Antigen Negative For Type B NEGATIVE SARS-CoV-2, RNA, NAAT NEGATIVE SARS CoV-2 NEGATIVE Test 08/15/24 15:42 Range/Units D-Dimer Quantitative (PE/DVT) 606 *H 0-500 ng/mL Troponin I High Sensitivity 22 4-75 ng/L Current Medications Medications (Trade) Dose Ordered Sig/Rose Marie Route PRN Reason Start Time Stop Time Status Last Admin Dose Admin Acetaminophen (TYLenol 325MG TAB) 650 mg ONCE STAT PO 08/15/24 15:37 08/15/24 15:39 DC 08/15/24 15:45 650 MG Acetaminophen (TYLenol 325MG TAB) 650 mg Q4H PRN PO MILD PAIN (1-3) 08/15/24 20:00 09/14/24 19:59 Acetaminophen (TYLenol 325MG TAB) 650 mg Q6H PRN PO TEMPERATURE GREATER THAN 101.5 08/15/24 20:00 09/14/24 19:59 Albuterol (DUOneb) 1 UDVIAL ONCE STAT IH 08/15/24 15:37 08/15/24 15:39 DC 08/15/24 15:41 1 UDVIAL Albuterol (DUOneb) 1 udvial [id number] IH 08/15/24 22:00 09/14/24 21:59 08/17/24 13:32 1 UDVIAL Azithromycin 250 ml @ 250 mls/hr Q24H IVPB 08/16/24 15:00 08/26/24 14:59 08/16/24 15:08 250 MLS/HR Ceftriaxone Sodium 1 gm/ Sodium Chloride 50 ml @ 100 mls/hr Q24H IV 08/15/24 20:00 08/15/24 20:40 DC Ceftriaxone Sodium (ROCEphine 1G INJ) 1 gm ONCE STAT IVPB 08/15/24 18:03 08/15/24 18:05 DC 08/15/24 18:20 1 GM Ceftriaxone Sodium (ROCEphine 1G INJ) 1 gm Q24H IVPB 08/15/24 21:00 08/25/24 20:59 08/16/24 22:21 1 GM Dextrose (D50w) 50 ml AD PRN IV HYPOGLYCEMIA PROTOCOL 08/15/24 20:00 09/14/24 19:59 Enoxaparin Sodium (Lovenox) 40 mg DAILY SQ 08/16/24 09:00 09/15/24 08:59 08/17/24 08:58 40 MG Famotidine (Pepcid 20mg Tab) 20 mg BID PO 08/15/24 21:00 09/14/24 20:59 08/17/24 08:58 20 MG Fluticasone Propionate (FLOnase 50 mcg/ spray 16g bottle) 2 SPRAYS HS EN 08/17/24 21:00 09/16/24 20:59 Furosemide (LASix 40MG VIAL) 40 mg BID IVP 08/15/24 21:00 09/14/24 20:59 08/17/24 08:58 40 MG Furosemide (LASix 40MG VIAL) 40 mg ONCE STAT IV 08/15/24 17:45 08/15/24 17:49 DC 08/15/24 18:20 40 MG Glucagon (Glucagon 1mg Kit) 1 mg AD PRN IM HYPOGLYCEMIA PROTOCOL 08/15/24 20:00 09/14/24 19:59 Guaifenesin/ Dextromethorphan (RobiTUSSin DM 200/20MG 10ML) 10 ml Q4H PRN PO COUGH 08/15/24 20:00 09/14/24 19:59 08/17/24 13:10 10 ML Hydralazine HCl (APRESOLine 20MG INJ) 10 mg Q6H PRN IV For:SBP above 160;DBP above 90 08/15/24 20:00 09/14/24 19:59 Insulin Human Regular (humuLIN R 100 UNIT/ML 3ML) INSULIN SLIDING SCAL... ACHS SQ 08/15/24 21:00 08/15/24 21:18 DC Insulin Human Regular (humuLIN R 100 UNIT/ML 3ML) INSULIN SLIDING SCAL... Q4H4 SQ 08/16/24 00:00 09/15/24 00:00 08/17/24 13:08 16 UNIT Magnesium Sulfate 50 ml @ 0 mls/hr PROTOCOL PRN IV OTHER [SEE ORDER COMMENTS] 08/15/24 20:00 09/14/24 19:59 08/16/24 09:01 25 MLS/HR Methylprednisolone Sodium Succinate (Solu-medROL 125MG) 125 mg ONCE STAT IVP 08/15/24 15:37 08/15/24 15:39 DC 08/15/24 15:44 125 MG Ondansetron HCl (zoFRAN 4MG INJ) 4 mg Q6H PRN IV NAUSEA/VOMITING 08/15/24 20:00 09/14/24 19:59 Potassium Chloride 100 ml @ 100 mls/hr AD PRN IV POTASSIUM PROTOCOL 08/15/24 20:00 09/14/24 19:59 Potassium Chloride (K-Dur/Klor-Con 20meq) 20 meq AD PRN PO POTASSIUM PROTOCOL 08/15/24 20:00 09/14/24 19:59 Potassium Chloride (KCl 10% Elixir 20meq/15ml) 20 meq AD PRN PO POTASSIUM PROTOCOL 08/15/24 20:00 09/14/24 19:59 DIAGNOSTICS / RADIOLOGY: [ ] ASSESSMENT: Acute hypoxemic respirsatory failure POA Acute on chronic CHF POA Suspected COPD exacerbation POA Nicotine Dependence POA Medical noncompliance POA Obstructive Sleep Apnea POA Coronary artery disease with cardiac stent x1 POA Morbid obesity POA Hypertension POA Uncontrolled diabetes POA Cocaine abuse POA Small pericardial effusion per CT POA PLAN: We will admit patient in medical telemetry Continue heart healthy diet and consistent carb diet continue Rocephin 1 g IV daily for empiric coverage Continue albuterol in fluticasone inhalers Continue Lasix 40 mg IV b.i.d., monitor for worsening renal function Continue Lovenox 40 mg subQ daily for DVT prophylaxis Continue Famotidine 20 mg p.o. bid for GI prophylaxis replace electrolytes as needed per protocol Switch to lispro insulin sliding scale Start lispro 8 units t.i.d. a.c. Start Lantus 20 units hs daily weight and strict I&O restrict fluid 1.5 L per day Follow up Cardiology consultation Follow up pulmonology consultation Follow up case management service Continue oxygen supplementation as needed to keep saturation above 92% Trend a.m. CBC and BMP Full code Case discussed with nurse at bedside Attention time greater than 30 minute DAPHNE FIELD IV, MD Aug 17, 2024 15:45
[2024-08-17] MEDS: INSULIN LISpro 100 UNIT/ML 3ML SQ SCH ×2 (16:26→16:27)
[2024-08-17] MEDS: fluTICasone proPIONate 50MCG/SPRAY 16 GM BOTTLE EN SCH (20:06)
[2024-08-17] MEDS: INSULIN GLARgine 100 UNITS/ML 10 ML VIAL SQ SCH (20:07)
--- NOTE | 2024-08-17 20:48 | PN ---
[facility] PROGRESS NOTE Date Patient Seen: Aug 17, 2024 Time of Visit: 16:44 Supervising Physician: YAEL HUERTA MD Supervising Physician: Dr. Rivas Loomis Reason for Consultation: COPD exacerbation Primary Care Physician: [ ] Outpatient Specialists: [ ] Inpatient Consults: AMBER PROBLEM LIST: Acute hypoxemic respirsatory failure POA Acute on chronic CHF POA Suspected COPD exacerbation POA Nicotine Dependence POA Medical noncompliance POA Obstructive Sleep Apnea POA Coronary artery disease with cardiac stent x1 POA Morbid obesity POA Hypertension POA Uncontrolled diabetes POA Cocaine abuse POA Small pericardial effusion per CT POA INTERVAL HISTORY: Patient is asleep, he is not compliance with his medical treatment, still with elevated BS in the 300's, he is a chronic smoker as per his at the bedside, patient is morbid obese with strong snoring , we will need an evaluation as an outpatient for MIGUEL A, we have recommended to his that he needs to wear his Bipap at night, he will continue on antibiotic therapy. REVIEW OF SYSTEMS: 12 point ROS reviewed with patient. Pertinent positives mentioned above. Oth erwise negative. PHYSICAL EXAM: GENERAL: alert, weak, awake oriented x 3 HEENT: EOMI, Sclera non icteric, moist mucosa NECK: Supple, no JVD, trachea midline LUNGS: Clear breath sounds bilaterally. No wheezes HEART: Regular rate and rhythm. Normal S1 and S2, without murmurs ABD: Abdomen soft, nontender. Bowel sounds present EXT: No clubbing cyanosis or edema NEURO: Alert and oriented to person, follows commands Vital Signs (last 8hr) Date Time Temp Pulse Resp B/P (MAP) Pulse Ox O2 Delivery O2 Flow Rate FiO2 08/17/24 19:16 89 21 08/17/24 19:16 89 22 N/Cannula Low lpm 3.0 32 08/17/24 16:00 98.6 102 16 135/85 95 Nasal Cannula 3.0 08/17/24 13:34 102 20 N/Cannula Low lpm 3.0 32 08/17/24 13:32 102 20 LABS: Hematology Labs: Test 08/16/24 03:44 Range/Units White Blood Count 8.2 4.8-10.8 K/uL Red Blood Count 5.48 4.50-6.20 MIL/uL Hemoglobin 15.5 14.0-18.0 g/dL Hematocrit 49.5 42-54 % Mean Corpuscular Volume 90.3 79-99 fL Mean Corpuscular Hemoglobin 28.3 27.0-33.0 pg Mean Corpuscular Hemoglobin Concent 31.3 L 32.0-36.0 g/dL Red Cell Distribution Width 13.3 11.0-15.5 % Platelet Count 319 130-400 K/uL Mean Platelet Volume 8.9 7.5-10.5 fL Immature Granulocyte % (Auto) 0.4 0-1 % Neutrophils (%) (Auto) 90.1 H 40.0-77.0 % Lymphocytes (%) (Auto) 5.5 L 21.0-51.0 % Monocytes (%) (Auto) 3.9 3.0-13.0 % Eosinophils (%) (Auto) 0.0 0.0-8.0 % Basophils (%) (Auto) 0.1 0.0-5.0 % Neutrophils # (Auto) 7.4 1.8-7.7 K/uL Lymphocytes # (Auto) 0.5 L 1.0-4.8 K/uL Monocytes # (Auto) 0.3 0.1-1.0 K/uL Eosinophils # (Auto) 0.00 0.00-0.70 K/uL Basophils # (Auto) 0.01 0.00-0.20 K/uL Absolute Immature Granulocyte (auto 0.03 0-1 K/uL Nucleated Red Blood Cells 0.0 0.0-0.19 % White Cell Morphology Comment See comments Chemistry Labs: Test 08/17/24 19:52 08/17/24 14:58 08/17/24 11:53 08/17/24 05:03 Range/Units Whole Blood Glucose 238 H 70-110 MG/DL Vitamin B12 Level 443 193-986 pg/mL Bedside Glucose Comment Protocol Initiated Procalcitonin < 0.05 L 0.05-0.5 ng/mL Test 08/16/24 03:44 Range/Units Sodium Level 142 136-145 mmol/L Potassium Level 4.4 3.5-5.1 mmol/L Chloride Level 102 101-111 mmol/L Carbon Dioxide Level 36 H 21-32 mmol/L Blood Urea Nitrogen 19 H 7-18 mg/dL Creatinine 1.2 0.5-1.3 mg/dL Glomerular Filtration Rate Calc 76 >90 mL/min Random Glucose 490 #*H 70-105 mg/dL Hemoglobin A1c 11.4 H 4.0-6.0 % Estimated Average Glucose (eAG) 280 H 70-126 mg/dL Total Calcium 9.3 8.5-10.1 mg/dL Magnesium Level 1.90 1.80-2.40 mg/dL Total Bilirubin 0.2 0.2-1.0 mg/dL Aspartate Amino Transf (AST/SGOT) 12 10-37 U/L Alanine Aminotransferase (ALT/SGPT) 21 12-78 U/L Alkaline Phosphatase 163 H 50-136 U/L B-Type Natriuretic Peptide 339 H 0-100 pg/mL Total Protein 6.8 6.0-8.3 g/dL Albumin 2.8 L 3.5-5.0 g/dL Triglycerides Level 120 30-200 mg/dL Cholesterol Level 232 H <200 mg/dL LDL Cholesterol 174 H 0-99 mg/dL HDL Cholesterol 29 29-71 mg/dL DIAGNOSTICS / RADIOLOGY RESULTS: [ ] PLAN NEURO: Minimize central acting medications as possible. Maintain fall precautions, adequate lighting during the day PULMONARY: Supplemental 02 as needed. Maintain aspiration precautions at all times CARDIOVASCULAR: Follow hemodynamics. Vital signs per facility protocol GI & NUTRITION: Continue with nutritional support. Continue stool softeners and laxatives as needed. KIDNEYS & ELECTROLYTES: Strict monitoring of intake, output and overall fluid balance. Avoid nephrotoxic medications to the extent possible. Medications to be dosed according to renal function. Monitor electrolytes and replace as needed ENDOCRINE: Maintain blood glucose between 100-180 at all times. Hypoglycemia protocol in place INFECTIOUS DISEASE: Trend temperature, WBC and procalcitonin level Follow cultures, deescalate antibiotics as soon as possible. Panculture if new onset fever ONCOLOGY/HEMATOLOGY/COAGULATION: Monitor for s/s of bleeding Monitor hemoglobin, coagulation studies as needed SKIN: Pressure ulcer prevention per facility protocol Specialty mattress ORTHO/REHAB: Continue PT/OT Prophylaxis: Continue GI and DVT prophylaxis Code Status: Full Resuscitation Disposition: TBD ATTESTATION BY PHYSICIAN Documentation assistance provided by a scribe, information recorded by the scribe was done at my direction and has been reviewed and validated by me." DEANNA CONLEY MD I personally scribed for DEANNA CONLEY MD ([email or web address]) on 08/17/24 at 20:48. Electronically submitted by Vandana Velasquez ([email or web address]). DEANNA CONLEY MD Aug 17, 2024 20:48
[2024-08-18] VITALS (17 sets, daily range): BP systolic 113–130; BP diastolic 77–97; PULSE 77–103; RESP 19–22; TEMP 97.2–98.8; O2SAT 87–99
--- NOTE | 2024-08-18 09:41 | PN ---
Acute hypoxemic respirsatory failure POA Acute on chronic diastolic systolic CHF with 45-50% ejection fraction POA Suspected COPD exacerbation POA Nicotine Dependence POA Medical noncompliance POA Obstructive Sleep Apnea POA, noncompliant with treatment Coronary artery disease with cardiac stent x1 POA Morbid obesity POA Hypertension POA Uncontrolled diabetes POA Cocaine abuse POA Small pericardial effusion per CT POA I saw the patient yesterday and he was already feeling dramatically improved, but then I was distracted and did not get a note written. Plan yesterday was to continue current treatment. Today the patient says he is at baseline status, no shortness of breath at all, ambulatory without symptoms. Labs shows that the BNP is still above 300 without significant renal compromise or evidence of dehydration/prerenal status. I think patient does still have a degree of diastolic failure but is clinically improved from his respiratory illness. Physical exam shows an obese patient who is neck veins are difficult to evaluate because of obesity with normal carotid volume, clear chest, no wheezing, no rhonchi, no rales, nonlabored respiration. Normal S1 and S2, regular rhythm, no edema. Impression and recommendation: If the patient is otherwise ready for discharge I would concur. If the patient is to be observed in the hospital further, we can adjust heart failure medications. I would continue diuresis, either intravenously or orally. Vitals/Labs Vital Signs Date Time Temp Pulse Resp B/P (MAP) Pulse Ox O2 Delivery O2 Flow Rate FiO2 08/18/24 08:00 97.9 78 19 122/81 92 Room Air 08/18/24 01:30 30 08/17/24 20:00 3 Medications Current Medications Methylprednisolone Sodium Succinate 125 mg ONCE STAT IVP Last administered on 08/15/24at 15:44; Start 08/15/24 at 15:37; Stop 08/15/24 at 15:39; Status DC Albuterol 1 UDVIAL ONCE STAT IH Last administered on 08/15/24at 15:41; Start 08/15/24 at 15:37; Stop 08/15/24 at 15:39; Status DC Acetaminophen 650 mg ONCE STAT PO Last administered on 08/15/24at 15:45; Start 08/15/24 at 15:37; Stop 08/15/24 at 15:39; Status DC Iohexol 35,000 mg STK-MED ONCE IV; Start 08/15/24 at 16:49; Stop 08/15/24 at 16:49; Status DC Furosemide 40 mg ONCE STAT IV Last administered on 08/15/24at 18:20; Start 08/15/24 at 17:45; Stop 08/15/24 at 17:49; Status DC Ceftriaxone Sodium 1 gm ONCE STAT IVPB Last administered on 08/15/24at 18:20; Start 08/15/24 at 18:03; Stop 08/15/24 at 18:05; Status DC Acetaminophen 650 mg Q6H PRN PO; Start 08/15/24 at 20:00; Stop 09/14/24 at 19:59 Acetaminophen 650 mg Q4H PRN PO; Start 08/15/24 at 20:00; Stop 09/14/24 at 19:59 Ondansetron HCl 4 mg Q6H PRN IV; Start 08/15/24 at 20:00; Stop 09/14/24 at 19:59 Guaifenesin/ Dextromethorphan 10 ml Q4H PRN PO Last administered on 08/17/24at 13:10; Start 08/15/24 at 20:00; Stop 09/14/24 at 19:59 Albuterol 1 udvial [id number] IH Last administered on 08/18/24at 06:50; Start 08/15/24 at 22:00; Stop 09/14/24 at 21:59 Famotidine 20 mg BID PO Last administered on 08/17/24at 20:06; Start 08/15/24 at 21:00; Stop 09/14/24 at 20:59 Furosemide 40 mg BID IVP Last administered on 08/17/24at 20:06; Start 08/15/24 at 21:00; Stop 09/14/24 at 20:59 Enoxaparin Sodium 40 mg DAILY SQ Last administered on 08/17/24at 08:58; Start 08/16/24 at 09:00; Stop 09/15/24 at 08:59 Ceftriaxone Sodium 1 gm/ Sodium Chloride 50 ml @ 100 mls/hr Q24H IV; Start 08/15/24 at 20:00; Stop 08/15/24 at 20:40; Status DC Hydralazine HCl 10 mg Q6H PRN IV; Start 08/15/24 at 20:00; Stop 09/14/24 at 19:59 Insulin Human Regular INSULIN SLIDING SCAL... ACHS SQ; Start 08/15/24 at 21:00; Stop 08/15/24 at 21:18; Status DC Dextrose 50 ml AD PRN IV; Start 08/15/24 at 20:00; Stop 09/14/24 at 19:59 Glucagon 1 mg AD PRN IM; Start 08/15/24 at 20:00; Stop 09/14/24 at 19:59 Magnesium Sulfate 50 ml @ 0 mls/hr PROTOCOL PRN IV Last administered on 08/16/24at 09:01; Start 08/15/24 at 20:00; Stop 09/14/24 at 19:59 Potassium Chloride 100 ml @ 100 mls/hr AD PRN IV; Start 08/15/24 at 20:00; Stop 09/14/24 at 19:59 Potassium Chloride 20 meq AD PRN PO; Start 08/15/24 at 20:00; Stop 09/14/24 at 19:59 Potassium Chloride 20 meq AD PRN PO; Start 08/15/24 at 20:00; Stop 09/14/24 at 19:59 Ceftriaxone Sodium 1 gm Q24H IVPB Last administered on 08/17/24at 20:06; Start 08/15/24 at 21:00; Stop 08/25/24 at 20:59 Insulin Human Regular 10 unit ONCE ONCE SQ Last administered on 08/15/24at 21:28; Start 08/15/24 at 21:30; Stop 08/15/24 at 21:31; Status DC Insulin Human Regular INSULIN SLIDING SCAL... Q4H4 SQ Last administered on 08/17/24at 13:08; Start 08/16/24 at 00:00; Stop 08/17/24 at 16:26; Status DC Azithromycin 250 ml @ 250 mls/hr Q24H IVPB Last administered on 08/17/24at 15:55; Start 08/16/24 at 15:00; Stop 08/26/24 at 14:59 Fluticasone Propionate 2 SPRAYS HS EN Last administered on 08/17/24at 20:06; Start 08/17/24 at 21:00; Stop 09/16/24 at 20:59 Lactulose 20 gm STK-MED ONCE .ROUTE Last administered on 08/17/24at 13:33; Start 08/17/24 at 13:10; Stop 08/17/24 at 13:10; Status DC Insulin Human Lispro 8 unit TIDAC SQ Last administered on 08/18/24at 06:26; Start 08/17/24 at 17:00; Stop 09/16/24 at 16:59 Insulin Glargine 20 units HS SQ Last administered on 08/17/24at 20:07; Start 08/17/24 at 21:00; Stop 09/16/24 at 20:59 Insulin Human Lispro INSULIN SLIDING SCAL... ACHS SQ Last administered on 08/18/24at 06:26; Start 08/17/24 at 16:30; Stop 09/16/24 at 16:29 ROLAND CHIRINOS MD Aug 18, 2024 09:41
[2024-08-18] MEDS: metoLAZONE 2.5 MG TABLET PO ONE (10:43)
--- NOTE | 2024-08-18 13:18 | PN ---
[facility] PROGRESS NOTE Date Patient Seen: Aug 18, 2024 Time of Visit: 13:18 Supervising Physician: Dr. Mario Clayton Reason for Consultation: COPD exacerbation Inpatient Consults: BIS PROBLEM LIST: Acute hypoxemic respiratory failure, POA Acute on chronic CHF POA Suspected COPD exacerbation, POA Coronary artery disease with cardiac stent x1 Hypertension Uncontrolled diabetes, POA Cocaine abuse POA Small pericardial effusion per CT Obstructive Sleep Apnea, undiagnosed, untreated Nicotine Dependence POA Medical noncompliance Morbid obesity, BMI 39.0 INTERVAL HISTORY: Patient assessed at bedside. AAOX3. Currently on 02@2LPM via NC. Patient failed 6 minute walk earlier and dropped to 86% and recovered with 2L. Advised on smoking and polysubstance cessation, nodded head. at bedside, questions answered. Denies any chest pain, abdominal pain, nausea or vomiting. Plan: CM for home oxygen, failed 6 minute walk test Follow cardiology recommendations CPAP at night, will need to follow up with commercial door installer once discharged for sleep study and CPAP Advised on smoking and polysubstance cessation REVIEW OF SYSTEMS: 12 point ROS reviewed with patient. Pertinent positives mentioned above. Otherwise negative. PHYSICAL EXAM: GENERAL: alert, weak, awake oriented x 3 HEENT: EOMI, Sclera non icteric, moist mucosa NECK: Supple, no JVD, trachea midline LUNGS: Clear breath sounds bilaterally. No wheezes HEART: Regular rate and rhythm. Normal S1 and S2, without murmurs ABD: Abdomen soft, nontender. Bowel sounds present EXT: No clubbing cyanosis or edema NEURO: AAOX3, follows commands Vital Signs (last 8hr) Date Time Temp Pulse Resp B/P (MAP) Pulse Ox O2 Delivery O2 Flow Rate FiO2 08/18/24 12:00 98.4 103 19 124/80 92 Room Air 08/18/24 11:34 80 20 21 77 20 28 08/18/24 10:04 88 22 N/Cannula Low lpm 2.0 28 08/18/24 10:04 88 20 08/18/24 08:00 97.9 78 19 122/81 92 Room Air 08/18/24 06:51 89 20 LABS: Chemistry Labs: Test 08/18/24 05:46 08/17/24 14:58 08/17/24 11:53 08/17/24 05:03 Range/Units Whole Blood Glucose 210 H 70-110 MG/DL Vitamin B12 Level 443 193-986 pg/mL Vitamin D 25-Hydroxy 10.6 30.0-100.0 ng/mL Bedside Glucose Comment Protocol Initiated Procalcitonin < 0.05 L 0.05-0.5 ng/mL DIAGNOSTICS / RADIOLOGY RESULTS: NA Disposition: per primary team JONATAN CLAYTON Aug 18, 2024 13:18
--- NOTE | 2024-08-18 14:45 | NUR ---
RECEIVED PATIENT FROM OR AFTER PROCEDURE WITH DR. MASON. PATIENT IS ALERT, ORIENTED IN PERSON, TIME AND PLACE. NO SIGNS OF RESPIRATORY DISTRESS. STATED NO PAIN AT THE MOMENT. POST VITAL SIGNS STARTING. WOUND DRESSING TO LEFT FOOT CLEAN AND DRESSING.
[2024-08-18] MEDS: furoSEMIDE 40 MG TABLET PO SCH (17:13)
[2024-08-18] MEDS: LACTULOSE 20 GM/30 ML UDCUP ONE (17:23)
[2024-08-18] MEDS: LACTULOSE 20 GM/30 ML UDCUP PO PRN (17:23)
--- NOTE | 2024-08-18 17:48 | PN ---
[facility] PROGRESS NOTE Date of Service: Aug 18, 2024 Time of Service: 17:47 SUBJECTIVE: [ ] 08/16/24 patient was seen and examined. Case discussed with RN and family by the bedside. Patient was very sleepy today due to hypercarbia likely and he is on a BiPAP we will pulmonology and Cardiology have been consulted. Continue diuresis 08/17/24 Patient reports eating sugary snacks which elevated his blood sugars. Otherwise no new complaints or concerns no acute events reported overnight. Patient seen and examimned. Care discussed with RN. Continue glycemic control and diuresis. REVIEW OF SYSTEMS CONSTITUTIONAL: Complains of fever Denies chills, or night sweats. No unintentional weight loss reported. NEUROLOGICAL: Denies headache, amaurosis fugax, motor weakness, sensory deficit, vertigo/spinning sensation, gait abnormalities, or tremors. ENT: No hearing loss, otalgia, otorrhea, rhinitis, rhinorrhea, hoarseness, or sore throat. CARDIOVASCULAR: Complained of swelling to both lower extremities and abdomen , orthopnea. Denies any exertional angina, palpitations, life-threatening arrhythmias, claudication. PULMONARY: Complains of shortness of breaths and occasional dry cough Denies phlegm/sputum, hemoptysis, pleuritic chest pain. SLEEP: Denies morning headaches, daytime somnolence or napping. Denies difficulty falling asleep, staying asleep, waking from sleep. Denies knowledge of snoring. GASTROINTESTINAL: Denies any type of dysphagia to either liquids or solids. Denies nausea, vomiting, pyrosis, early satiety, abdominal pain, diarrhea, constipation, or changes in stool consistency or caliber. Denies coffee-ground emesis, hematemesis, hematochezia, or melanotic stools. GENITOURINARY: Denies frequency, urgency, nocturia, hematuria or incontinence (Storage/Irritative symptoms.) Low urinary stream, straining to void, urinary intermittency or hesitancy, splitting of the voiding stream, terminal dribbling. ENDOCRINOLOGIC: Denies polyuria, polydipsia, polyphagia or heat/cold intolerances. HEMATOLOGIC: Denies thrombophilia/previous clots, or coagulopathy/bleeding disorders. ONCOLOGIC: Denies personal history of malignancy. DERMATOLOGIC: Denies rashes or pruritus. PSYCHIATRIC: Denies any suicidal or homicidal ideation. Denies hallucinations. PHYSICAL EXAM GENERAL APPEARANCE: The patient is awake, alert, and oriented, in no acute cardiopulmonary distress. NEUROLOGICAL: Cranial nerves II-XII grossly intact. Motor is 5/5 in bilateral upper and lower extremities proximal to distal. No sensory deficits. HEENT: Face is symmetric. Pupils are equal and reactive. Extraocular movements are intact. NECK: Supple. No JVD. No thyromegaly. No submental, submandibular, pre- /postauricular, occipital or supraclavicular lymphadenopathy. CHEST: Normal chest expansion. LUNGS: Bilateral Crackles on all lung kaur per auscultation. Absence of wheezing. CARDIOVASCULAR: Regular. S1 and S2 normal. No appreciable rubs, murmurs or gallops. ABDOMEN: Distended and obese Soft and nontender. There is no rebound, voluntary guarding, or rigidity. : Deferred. No [place]. EXTREMITIES: Traces of edema to bilateral extremities and not cyanotic. No clubbing. Good capillary refill. SKIN: No skin breakdown. Vital Signs (last 8hr) Date Time Temp Pulse Resp B/P (MAP) Pulse Ox O2 Delivery O2 Flow Rate FiO2 08/18/24 16:22 98.4 101 19 130/78 91 Nasal Cannula 2.0 08/18/24 14:04 84 20 08/18/24 12:00 98.4 103 19 124/80 92 Room Air 08/18/24 11:34 80 20 21 77 20 28 08/18/24 10:04 88 22 N/Cannula Low lpm 2.0 28 08/18/24 10:04 88 20 LABS: Laboratory: Test 08/18/24 14:56 08/17/24 14:58 08/17/24 11:53 08/17/24 05:03 Range/Units Whole Blood Glucose 296 H 70-110 MG/DL Vitamin B12 Level 443 193-986 pg/mL Vitamin D 25-Hydroxy 10.6 30.0-100.0 ng/mL Bedside Glucose Comment Protocol Initiated Procalcitonin < 0.05 L 0.05-0.5 ng/mL Current Medications Medications (Trade) Dose Ordered Sig/Rose Marie Route PRN Reason Start Time Stop Time Status Last Admin Dose Admin Acetaminophen (TYLenol 325MG TAB) 650 mg ONCE STAT PO 08/15/24 15:37 08/15/24 15:39 DC 08/15/24 15:45 650 MG Acetaminophen (TYLenol 325MG TAB) 650 mg Q4H PRN PO MILD PAIN (1-3) 08/15/24 20:00 09/14/24 19:59 Acetaminophen (TYLenol 325MG TAB) 650 mg Q6H PRN PO TEMPERATURE GREATER THAN 101.5 08/15/24 20:00 09/14/24 19:59 Albuterol (DUOneb) 1 UDVIAL ONCE STAT IH 08/15/24 15:37 08/15/24 15:39 DC 08/15/24 15:41 1 UDVIAL Albuterol (DUOneb) 1 udvial [id number] IH 08/15/24 22:00 09/14/24 21:59 08/18/24 14:04 1 UDVIAL Azithromycin 250 ml @ 250 mls/hr Q24H IVPB 08/16/24 15:00 08/26/24 14:59 08/18/24 17:12 250 MLS/HR Ceftriaxone Sodium 1 gm/ Sodium Chloride 50 ml @ 100 mls/hr Q24H IV 08/15/24 20:00 08/15/24 20:40 DC Ceftriaxone Sodium (ROCEphine 1G INJ) 1 gm ONCE STAT IVPB 08/15/24 18:03 08/15/24 18:05 DC 08/15/24 18:20 1 GM Ceftriaxone Sodium (ROCEphine 1G INJ) 1 gm Q24H IVPB 08/15/24 21:00 08/25/24 20:59 08/17/24 20:06 1 GM Dextrose (D50w) 50 ml AD PRN IV HYPOGLYCEMIA PROTOCOL 08/15/24 20:00 09/14/24 19:59 Empaglifozin (Jardiance 10mg) 10 mg DAILY PO 08/19/24 09:00 09/18/24 08:59 Enoxaparin Sodium (Lovenox) 40 mg DAILY SQ 08/16/24 09:00 09/15/24 08:59 08/18/24 09:45 40 MG Famotidine (Pepcid 20mg Tab) 20 mg BID PO 08/15/24 21:00 09/14/24 20:59 08/18/24 09:45 20 MG Fluticasone Propionate (FLOnase 50 mcg/ spray 16g bottle) 2 SPRAYS HS EN 08/17/24 21:00 09/16/24 20:59 08/17/24 20:06 1 SPRAYS Furosemide (LASix 40MG TAB) 40 mg BID@09,17 PO 08/18/24 17:00 09/17/24 16:59 08/18/24 17:13 40 MG Furosemide (LASix 40MG VIAL) 40 mg BID IVP 08/15/24 21:00 08/18/24 09:47 DC 08/18/24 09:45 40 MG Furosemide (LASix 40MG VIAL) 40 mg ONCE STAT IV 08/15/24 17:45 08/15/24 17:49 DC 08/15/24 18:20 40 MG Glucagon (Glucagon 1mg Kit) 1 mg AD PRN IM HYPOGLYCEMIA PROTOCOL 08/15/24 20:00 09/14/24 19:59 Guaifenesin/ Dextromethorphan (RobiTUSSin DM 200/20MG 10ML) 10 ml Q4H PRN PO COUGH 08/15/24 20:00 09/14/24 19:59 08/18/24 09:57 10 ML Hydralazine HCl (APRESOLine 20MG INJ) 10 mg Q6H PRN IV For:SBP above 160;DBP above 90 08/15/24 20:00 08/18/24 09:47 DC Insulin Glargine (LANtus 100 UNITS/ML 10 ML VIAL) 20 units HS SQ 08/17/24 21:00 09/16/24 20:59 08/17/24 20:07 20 UNITS Insulin Human Lispro (HumaLOG LISpro 100 UNIT/ML 3ML) 8 unit TIDAC SQ 08/17/24 17:00 08/18/24 10:00 DC 08/18/24 06:26 8 UNIT Insulin Human Lispro (HumaLOG LISpro 100 UNIT/ML 3ML) INSULIN SLIDING SCAL... ACHS SQ 08/17/24 16:30 09/16/24 16:29 08/18/24 17:18 12 UNIT Insulin Human Regular (humuLIN R 100 UNIT/ML 3ML) INSULIN SLIDING SCAL... ACHS SQ 08/15/24 21:00 08/15/24 21:18 DC Insulin Human Regular (humuLIN R 100 UNIT/ML 3ML) INSULIN SLIDING SCAL... Q4H4 SQ 08/16/24 00:00 08/17/24 16:26 DC 08/17/24 13:08 16 UNIT Lactulose (Constulose 20gm/ 30ml Udcup) 20 gm BID PRN PO CONSTIPATION 08/18/24 17:30 09/17/24 17:29 08/18/24 17:23 20 GM Magnesium Sulfate 50 ml @ 0 mls/hr PROTOCOL PRN IV OTHER [SEE ORDER COMMENTS] 08/15/24 20:00 09/14/24 19:59 08/16/24 09:01 25 MLS/HR Methylprednisolone Sodium Succinate (Solu-medROL 125MG) 125 mg ONCE STAT IVP 08/15/24 15:37 08/15/24 15:39 DC 08/15/24 15:44 125 MG Ondansetron HCl (zoFRAN 4MG INJ) 4 mg Q6H PRN IV NAUSEA/VOMITING 08/15/24 20:00 09/14/24 19:59 Potassium Chloride 100 ml @ 100 mls/hr AD PRN IV POTASSIUM PROTOCOL 08/15/24 20:00 09/14/24 19:59 Potassium Chloride (K-Dur/Klor-Con 20meq) 20 meq AD PRN PO POTASSIUM PROTOCOL 08/15/24 20:00 09/14/24 19:59 Potassium Chloride (KCl 10% Elixir 20meq/15ml) 20 meq AD PRN PO POTASSIUM PROTOCOL 08/15/24 20:00 09/14/24 19:59 Spironolactone (Aldactone 25mg) 25 mg DAILY PO 08/19/24 09:00 09/18/24 08:59 DIAGNOSTICS / RADIOLOGY: [ ] ASSESSMENT: Acute hypoxemic respirsatory failure POA Acute on chronic CHF POA Suspected COPD exacerbation POA Nicotine Dependence POA Medical noncompliance POA Obstructive Sleep Apnea POA Coronary artery disease with cardiac stent x1 POA Morbid obesity POA Hypertension POA Uncontrolled diabetes POA Cocaine abuse POA Small pericardial effusion per CT POA PLAN: We will admit patient in medical telemetry Continue heart healthy diet and consistent carb diet continue Rocephin 1 g IV daily for empiric coverage Continue albuterol in fluticasone inhalers Continue Lasix 40 mg IV b.i.d., monitor for worsening renal function Continue Lovenox 40 mg subQ daily for DVT prophylaxis Continue Famotidine 20 mg p.o. bid for GI prophylaxis replace electrolytes as needed per protocol Switch to lispro insulin sliding scale Start lispro 8 units t.i.d. a.c. Start Lantus 20 units hs daily weight and strict I&O restrict fluid 1.5 L per day Follow up Cardiology consultation Follow up pulmonology consultation Follow up case management service Continue oxygen supplementation as needed to keep saturation above 92% Trend a.m. CBC and BMP Full code Case discussed with nurse at bedside Attention time greater than 30 minute LORETO SPRAGUE MD Aug 18, 2024 17:48
[2024-08-19] VITALS (14 sets, daily range): BP systolic 108–169; BP diastolic 69–89; PULSE 54–110; RESP 18–24; TEMP 98.3–98.9; O2SAT 93–99
--- NOTE | 2024-08-19 01:59 | NUR ---
PLAN OF CARE: PATIENT DOES NOT WISH TO ENGAGE IN PLAN OF CARE WHICH INCLUDES USING CPAP DURING SLEEP, CONSISTENT CARB DIET AND FLUID RESTRICTION OF 1.5 L A DAY. SEVERAL OUTSIDE FOOD AND DRINKS NOTED AT BEDSIDE TABLE. DIET AND FLUID RESTRICTION EDUCATION GIVEN SINCE BEGINNING OF THE SHIFT. PT CONTINUES TO TAKE OFF CPAP MASK DURING THE NIGHT. NURSING/RT STAFF HAVE GIVEN MULTIPLE EDUCATION ON THE IMPORTANCE AND CONSEQUENCES OF NOT USING CPAP MACHINE.
--- NOTE | 2024-08-19 09:13 | NUR ---
[facility] RECEIVED CALL FROM NURSE PATIENT 87% ON . ANDREY LET DIRECTOR KNOW. CHECKING WITH [facility] TO SEE IF STILL HAS ANY CONCENTRATORS. PATIENT SELF PAY. Addendum: 08/19/24 at 0915 by BARBARA HERNANDEZ RN CM Amended: Links added.
--- NOTE | 2024-08-19 09:49 | PN ---
Acute hypoxemic respirsatory failure POA Acute on chronic diastolic systolic CHF with 45-50% ejection fraction POA Suspected COPD exacerbation POA Nicotine Dependence POA Medical noncompliance POA Obstructive Sleep Apnea POA, noncompliant with treatment Coronary artery disease with cardiac stent x1 POA Morbid obesity POA Hypertension POA Uncontrolled diabetes POA Cocaine abuse POA Small pericardial effusion per CT POA Patient denies any shortness of breath or chest pain or chest pressure or or thopnea and says he is back to baseline in terms of respiratory status. He has been treated for both diastolic failure and pulmonary exacerbation. Obese patient with no JVD, no rales, no rhonchi, nonlabored respiration, normal S1 and S2, no murmur, no edema. BNP is down to 174 but chest x-ray is absolutely clear. Heart failure appears to be resolved. Ejection fraction was 45-50% by echo. Impression and recommendation: Diastolic heart failure is resolved. Baseline BNP appears to be 174. We do not have BMP today but electrolytes were balanced yesterday. It may be best to check BMP today before discharging, but I think th e patient could be discharged on spironolactone, empagliflozin, and maintenance furosemide. I will defer to the Pulmonary Service as to whether his pulmonary status is sufficient to add 25 mg metoprolol succinate and Entresto , one tab p.o. b.i.d.. If these can be added without pulmonary exacerbation, they should be used. I will see the patient in follow up in the office with BNP and proBNP in one month. Vitals/Labs Vital Signs Date Time Temp Pulse Resp B/P (MAP) Pulse Ox O2 Delivery O2 Flow Rate FiO2 08/19/24 08:00 98.6 86 20 140/85 93 Nasal Cannula 2.0 24 Medications Current Medications Methylprednisolone Sodium Succinate 125 mg ONCE STAT IVP Last administered on 08/15/24at 15:44; Start 08/15/24 at 15:37; Stop 08/15/24 at 15:39; Status DC Albuterol 1 UDVIAL ONCE STAT IH Last administered on 08/15/24at 15:41; Start 08/15/24 at 15:37; Stop 08/15/24 at 15:39; Status DC Acetaminophen 650 mg ONCE STAT PO Last administered on 08/15/24at 15:45; Start 08/15/24 at 15:37; Stop 08/15/24 at 15:39; Status DC Iohexol 35,000 mg STK-MED ONCE IV; Start 08/15/24 at 16:49; Stop 08/15/24 at 16:49; Status DC Furosemide 40 mg ONCE STAT IV Last administered on 08/15/24at 18:20; Start 08/15/24 at 17:45; Stop 08/15/24 at 17:49; Status DC Ceftriaxone Sodium 1 gm ONCE STAT IVPB Last administered on 08/15/24at 18:20; Start 08/15/24 at 18:03; Stop 08/15/24 at 18:05; Status DC Acetaminophen 650 mg Q6H PRN PO; Start 08/15/24 at 20:00; Stop 09/14/24 at 1 9:59 Acetaminophen 650 mg Q4H PRN PO; Start 08/15/24 at 20:00; Stop 09/14/24 at 19:59 Ondansetron HCl 4 mg Q6H PRN IV; Start 08/15/24 at 20:00; Stop 09/14/24 at 19:59 Guaifenesin/ Dextromethorphan 10 ml Q4H PRN PO Last administered on 08/18/24at 09:57; Start 08/15/24 at 20:00; Stop 09/14/24 at 19:59 Albuterol 1 udvial [id number] IH Last administered on 08/19/24at 06:22; Start 08/15/24 at 22:00; Stop 09/14/24 at 21:59 Famotidine 20 mg BID PO Last administered on 08/18/24at 21:07; Start 08/15/24 at 21:00; Stop 09/14/24 at 20:59 Furosemide 40 mg BID IVP Last administered on 08/18/24at 09:45; Start 08/15/24 at 21:00; Stop 08/18/24 at 09:47; Status DC Enoxaparin Sodium 40 mg DAILY SQ Last administered on 08/18/24at 09:45; Start 08/16/24 at 09:00; Stop 09/15/24 at 08:59 Ceftriaxone Sodium 1 gm/ Sodium Chloride 50 ml @ 100 mls/hr Q24H IV; Start 08/15/24 at 20:00; Stop 08/15/24 at 20:40; Status DC Hydralazine HCl 10 mg Q6H PRN IV; Start 08/15/24 at 20:00; Stop 08/18/24 at 09:47; Status DC Insulin Human Regular INSULIN SLIDING SCAL... ACHS SQ; Start 08/15/24 at 21:00; Stop 08/15/24 at 21:18; Status DC Dextrose 50 ml AD PRN IV; Start 08/15/24 at 20:00; Stop 09/14/24 at 19:59 Glucagon 1 mg AD PRN IM; Start 08/15/24 at 20:00; Stop 09/14/24 at 19:59 Magnesium Sulfate 50 ml @ 0 mls/hr PROTOCOL PRN IV Last administered on 08/16/24at 09:01; Start 08/15/24 at 20:00; Stop 09/14/24 at 19:59 Potassium Chloride 100 ml @ 100 mls/hr AD PRN IV; Start 08/15/24 at 20:00; Stop 09/14/24 at 19:59 Potassium Chloride 20 meq AD PRN PO; Start 08/15/24 at 20:00; Stop 09/14/24 at 19:59 Potassium Chloride 20 meq AD PRN PO; Start 08/15/24 at 20:00; Stop 09/14/24 at 19:59 Ceftriaxone Sodium 1 gm Q24H IVPB Last administered on 08/18/24at 21:07; Start 08/15/24 at 21:00; Stop 08/25/24 at 20:59 Insulin Human Regular 10 unit ONCE ONCE SQ Last administered on 08/15/24at 21:28; Start 08/15/24 at 21:30; Stop 08/15/24 at 21:31; Status DC Insulin Human Regular INSULIN SLIDING SCAL... Q4H4 SQ Last administered on 08/17/24at 13:08; Start 08/16/24 at 00:00; Stop 08/17/24 at 16:26; Status DC Azithromycin 250 ml @ 250 mls/hr Q24H IVPB Last administered on 08/18/24at 17:12; Start 08/16/24 at 15:00; Stop 08/26/24 at 14:59 Fluticasone Propionate 2 SPRAYS HS EN Last administered on 08/18/24at 21:07; Start 08/17/24 at 21:00; Stop 09/16/24 at 20:59 Lactulose 20 gm STK-MED ONCE .ROUTE Last administered on 08/17/24at 13:33; Start 08/17/24 at 13:10; Stop 08/17/24 at 13:10; Status DC Insulin Human Lispro 8 unit TIDAC SQ Last administered on 08/18/24at 06:26; Start 08/17/24 at 17:00; Stop 08/18/24 at 10:00; Status DC Insulin Glargine 20 units HS SQ Last administered on 08/18/24at 21:08; Start 08/17/24 at 21:00; Stop 09/16/24 at 20:59 Insulin Human Lispro INSULIN SLIDING SCAL... ACHS SQ Last administered on 08/19/24at 06:12; Start 08/17/24 at 16:30; Stop 09/16/24 at 16:29 Empaglifozin 10 mg DAILY PO; Start 08/19/24 at 09:00; Stop 09/18/24 at 08:59 Spironolactone 25 mg DAILY PO; Start 08/19/24 at 09:00; Stop 09/18/24 at 08:59 Furosemide 40 mg BID@,17 PO Last administered on 08/18/24at 17:13; Start 08/18/24 at 17:00; Stop 09/17/24 at 16:59 Metolazone 2.5 mg ONCE ONCE PO Last administered on 08/18/24at 10:43; Start 08/18/24 at 10:00; Stop 08/18/24 at 10:01; Status DC Lactulose 20 gm STK-MED ONCE .ROUTE; Start 08/18/24 at 17:19; Stop 08/18/24 at 17:19; Status DC Lactulose 20 gm BID PRN PO Last administered on 08/18/24at 17:23; Start 08/18/24 at 17:30; Stop 09/17/24 at 17:29 ROLAND CHIRINOS MD Aug 19, 2024 09:49
[2024-08-19] MEDS: EMPAGLIFLOZIN 10MG TABLET PO SCH (10:14)
[2024-08-19] MEDS: SPIRONOLACTONE 25 MG TAB PO SCH (10:14)
[2024-08-19] MEDS: acetaMINOPHEN 325 MG TAB PO PRN (10:25)
--- NOTE | 2024-08-19 11:24 | HMCIMG ---
PORTABLE CHEST RADIOGRAPH INDICATION: chf COMPARISON: 08/15/2024 CTA chest FINDINGS: equipment monitor phototypesetting leads overlie the field of view. Heart is slightly enlarged. The pulmonary vascularity and dottie appear normal. No abnormal pulmonary parenchymal opacity or consolidation identified. No significant pleural effusion noted. No pneumothorax detected. IMPRESSION: Mild cardiac enlargement without radiographic evidence for any acute cardiopulmonary process.
--- NOTE | 2024-08-19 12:06 | PN ---
[facility] PROGRESS NOTE Date Patient Seen: Aug 19, 2024 Time of Visit: 12:06 Supervising Physician: Dr. Cheryle Herrera Reason for Consultation: COPD exacerbation Inpatient Consults: BIS PROBLEM LIST: Acute hypoxemic respiratory failure, POA, home oxygen setup Acute on chronic diastolic systolic CHF with 45-50% ejection fraction, POA Suspected COPD exacerbation, POA Coronary artery disease with cardiac stent x1 Hypertension Uncontrolled diabetes, POA Cocaine abuse POA Small pericardial effusion per CT Obstructive Sleep Apnea, undiagnosed, untreated Nicotine Dependence POA Medical noncompliance Morbid obesity, BMI 39.0 INTERVAL HISTORY: Patient assessed at bedside. AAOX3. Currently on 02@2LPM via NC. Patient failed 6 minute yesterday, pending home oxygen to be setup. States he feels better overall. Denies any chest pain, abdominal pain, nausea or vomiting. Plan: Pending for home oxygen to be setup, okay to be discharged from pulmonary standpoint once oxygen is delivered. RX for azithromycin, Symbicort and albuterol left in chart Follow cardiology recommendations CPAP at night, will need to follow up with lead furnace operator once discharged for sleep study and CPAP Advised on smoking and polysubstance cessation REVIEW OF SYSTEMS: 12 point ROS reviewed with patient. Pertinent positives mentioned above. Otherwise negative. PHYSICAL EXAM: GENERAL: alert, weak, awake oriented x 3 HEENT: EOMI, Sclera non icteric, moist mucosa NECK: Supple, no JVD, trachea midline LUNGS: Clear breath sounds bilaterally. No wheezes HEART: Regular rate and rhythm. Normal S1 and S2, without murmurs ABD: Abdomen soft, nontender. Bowel sounds present EXT: No clubbing cyanosis or edema NEURO: AAOX3, follows commands Vital Signs (last 8hr) Date Time Temp Pulse Resp B/P (MAP) Pulse Ox O2 Delivery O2 Flow Rate FiO2 08/19/24 10:36 92 20 N/Cannula Low lpm 2.0 28 08/19/24 08:00 98.6 86 20 140/85 93 Nasal Cannula 2.0 24 08/19/24 08:00 93 Nasal Cannula* 3 32 08/19/24 06:21 89 20 N/Cannula Low lpm 2.0 28 08/19/24 06:20 89 20 LABS: Chemistry Labs: Test 08/19/24 10:58 08/19/24 05:20 08/17/24 14:58 Range/Units Whole Blood Glucose 249 H 70-110 MG/DL Bedside Glucose Comment Notified Nurse B-Type Natriuretic Peptide 174 H 0-100 pg/mL Vitamin B12 Level 443 193-986 pg/mL Vitamin D 25-Hydroxy 10.6 30.0-100.0 ng/mL DIAGNOSTICS / RADIOLOGY RESULTS: NA Disposition: per primary team JONATAN CONLEY Aug 19, 2024 12:06
--- NOTE | 2024-08-19 17:33 | NUR ---
[place] [facility] [phone]. PATIENT QUALIFIED FOR . TRIED TO FIND A CONCENTRATOR TO LEND PATIENT NOT ABLE TO LOCATE ONE. TRIED [facility], [facility], [facility] AND [facility] PATIENT EITHER DONT DO 02 ANY MORE OR DONT DO PRIVATE PAY. [facility] SAID THEY STILL DO [place] 1000 FOR CONCENTRATOR 185 AND 80 FOR A REFILL. GAVE INFO TO [facility]. SENT PACKET TO [facility]. ALSO GAVE COPY OF REPORT AND ORDER WITH SPOUSE TO PRIVATE PURCHASE THE DME. EXPLAINED IF GETS IT THEN NEEDS TO BRING TANK TO ROOM SO THAT PATIENT CAN BE DISCHARGED. Addendum: 08/19/24 at 1740 by BARBARA HERNANDEZ RN CM Amended: Links added.
[2024-08-19] MEDS ORDERED: EMPA10TA PO (18:07)
[2024-08-19] MEDS ORDERED: FURO40TA7 PO (18:07)
[2024-08-19] MEDS ORDERED: METO-408 PO (18:07)
[2024-08-19] MEDS ORDERED: INSLAN SQ (18:07)
[2024-08-19] MEDS ORDERED: SPIR25TA6 PO (18:10)
--- NOTE | 2024-08-19 19:39 | NUR ---
DISCHARGE PATIENT DISCHARGE HOME VIA PERSONAL VEHICLE WITH . IV REMOVED INTACT AND TELE MONITOR REMOVED. ALL QUESTIONS AND CONCERNS ANSWERED. VERBALIZE UNDERSTANDING ON FOLLOW UP APPOINTMENTS. PATIENT PURCHASED HOME OXYGEN AND CONCENTRATOR
== END 2024-08-19 19:39 | disposition home or self-care (01) | DRG 291 ==
LOC: EDH 15:22 → EDHIP 15:23 → UNDOADMIN 18:20 → EDHIP 18:20 → 4BH 22:32
PROVIDERS: ADMIT Internal Medicine; ATTEND Internal Medicine
PROC: 5A09357 Assistance with Respiratory Ventilation, Less than 24 Consecutive Hours, Continuous Positive Airway Pressure (ICD-10-PCS; principal; 2024-08-16)
PROC: 5A09357 Assistance with Respiratory Ventilation, Less than 24 Consecutive Hours, Continuous Positive Airway Pressure (ICD-10-PCS; 2024-08-17)
PROC: 5A09357 Assistance with Respiratory Ventilation, Less than 24 Consecutive Hours, Continuous Positive Airway Pressure (ICD-10-PCS; 2024-08-18)
PROC: 5A09357 Assistance with Respiratory Ventilation, Less than 24 Consecutive Hours, Continuous Positive Airway Pressure (ICD-10-PCS; 2024-08-19)
DX: I11.0 Hypertensive heart disease with heart failure (principal); I50.43 Acute on chronic combined systolic (congestive) and diastolic (congestive) heart failure; J96.01 Acute respiratory failure with hypoxia; I31.39 Other pericardial effusion (noninflammatory); J44.1 Chronic obstructive pulmonary disease with (acute) exacerbation; G47.33 Obstructive sleep apnea (adult) (pediatric); I25.10 Atherosclerotic heart disease of native coronary artery without angina pectoris; E66.01 Morbid (severe) obesity due to excess calories; F14.10 Cocaine abuse, uncomplicated; E11.65 Type 2 diabetes mellitus with hyperglycemia; E78.00 Pure hypercholesterolemia, unspecified; F17.210 Nicotine dependence, cigarettes, uncomplicated; I25.2 Old myocardial infarction; Z91.199 Patient's noncompliance with other medical treatment and regimen due to unspecified reason; Z83.3 Family history of diabetes mellitus; Z95.5 Presence of coronary angioplasty implant and graft; Z82.49 Family history of ischemic heart disease and other diseases of the circulatory system; Z68.39 Body mass index [BMI] 39.0-39.9, adult
CPT/HCPCS: 36415; 36600; 71045; 71270; 80048; 80053; 80061; 80305; 81001; 82306; 82435; 82607; 82803; 82947; 82948; 83036; 83605; 83735; 83880; 84132; 84145; 84295; 84484; 85018; 85025; 85378; 87635; 87804; 93005; 93306; 93356; 94640; 94660; 94664; 94760; 96372; 96374; 96375; 99285; G0378; J0456; J0696; J1650; J1815; J1940; J2919; J3475; Q9967

== ENCOUNTER 2024-10-25 23:20 | Observation (INO) | payer OTHER ==
[~2024-10-25] VITALS: Ht 180.3 cm; Wt 122.4 kg
[~2024-10-25 23:20] MED LIST changes: +FURO40TA7 PO; +METO-408 PO
[2024-10-25 23:44] LABS: BASOPHILS # (AUTO) 0.02 K/uL (0.00-0.20); BASOPHILS % (AUTO) 0.3 % (0.0-5.0); EOSINOPHILS # (AUTO) 0.04 K/uL (0.00-0.70); EOSINOPHILS % (AUTO) 0.6 % (0.0-8.0); HEMATOCRIT 44.4 % (42-54); IMMATURE GRANULOCYTE ABSOLUTE 0.02 K/uL (0-1); LYMPHOCYTES # (AUTO) 1.7 K/uL (1.0-4.8); LYMPHOCYTES % (AUTO) 26.2 % (21.0-51.0); MEAN CORPUSCULAR HEMOGLOBIN 28.7 pg (27.0-33.0); MEAN CORPUSCULAR HGB CONC 33.3 g/dL (32.0-36.0); MEAN CORPUSCULAR VOLUME 86.2 fL (79-99); MONOCYTES # (AUTO) 0.5 K/uL (0.1-1.0); NEUTROPHILS # (AUTO) 4.3 K/uL (1.8-7.7); NEUTROPHILS % (AUTO) 65.6 % (40.0-77.0); PLATELET COUNT (AUTO) 278 K/uL (130-400); RED BLOOD CELL COUNT(AUTO) 5.15 MIL/uL (4.50-6.20); RED CELL DISTRIBUTION WIDTH 13.2 % (11.0-15.5); WHITE BLOOD COUNT (AUTO) 6.6 K/uL (4.8-10.8)
--- NOTE | 2024-10-25 23:47 | ERN ---
ED Note History of Present Illness Stated Complaint: CHEST PAIN Chief Complaint: Chest Pain Time Seen by MD: 23:38 Dictation: PATIENT IS A 44-YEAR-OLD MALE COMING IN TODAY WITH LEFT ANTERIOR CHEST PAIN THAT RADIATES TO HIS LEFT AXILLA AND LEFT SHOULDER ONSET TWO DAYS PRIOR TO ARRIVAL. HE STATES HE WAS WORKING IN HIS HOME WHEN HE FELT THE PAIN SAID IT GOT RELIEVED SLIGHTLY WITH NITROGLYCERIN. NO NAUSEA NO VOMITING NO BACK PAIN NO JAW PAIN. STATES HE HAS A HISTORY OF CORONARY ARTERY DISEASE/PRIOR STENTS AND SEES DR. CHIRINOS. Allergies: Coded Allergies: No Known Drug Allergies (Unverified Allergy, Unknown, 05/09/18) Unable to Assess (Verified Allergy, Unknown, 05/09/18) Home Meds Active Scripts Spironolactone (Spironolactone) 25 Mg Tablet, 1 TAB PO DAILY for 14 Days, #14 TAB 0 Refills Prov:GEENA OTERO MD 08/19/24 Metoprolol Succinate (Metoprolol Succinate) 25 Mg Tab.er.24h, 1 TAB PO DAILY for 14 Days, #14 TAB 0 Refills Prov:GEENA OTERO MD 08/19/24 Furosemide (Lasix 40Mg Tab) 40 Mg Tablet, 40 MG PO ONCE, #14 TAB Prov:GEENA OTERO MD 08/19/24 Empagliflozin (Jardiance) 10 Mg Tablet, 10 MG PO DAILY, #14 TAB Prov:GEENA OTERO MD 08/19/24 Insulin Glargine,Hum.rec.anlog (Lantus) 100 Unit/Ml Inj, 20 UNITS SQ HS, #10 ML Prov:GEENA OTERO MD 08/19/24 Nitroglycerin (Nitroglycerin) 0.4 Mg Tab.subl, 0.4 MG SL [id number] PRN for chest pain, #30 TAB.SL 1 Refill Prov:CHARLIE AYOUB MD 02/26/24 Spironolactone (Spironolactone) 25 Mg Tablet, 12.5 MG PO DAILY for 30 Days, #30 TAB 2 Refills Prov:CHARLIE AYOUB MD 02/26/24 Metoprolol Tartrate (Lopressor) 25 Mg Tab, 37.5 MG PO BID for 30 Days, #30 TAB 2 Refills Prov:CHARLIE AYOUB MD 02/26/24 Lisinopril (Lisinopril) 2.5 Mg Tablet, 2.5 MG PO DAILY for 30 Days, #30 TAB 2 Refills Prov:CHARLIE AYOUB MD 02/26/24 Insulin Regular, Human (Humulin R) 100 Unit/Ml Vial, 5 UNIT SQ TIDAC for 30 Days, #30 VIAL 2 Refills Prov:CHARLIE AYOUB MD 02/26/24 Insulin Glargine,Hum.rec.anlog (Lantus) 100 Unit/Ml Inj, 20 UNITS SQ BID@0730,2100 for 30 Days, #30 ML 1 Refill Prov:CHARLIE AYOUB MD 02/26/24 Fenofibrate Nanocrystallized (Tricor) 145 Mg Tablet, 145 MG PO DAILY for 30 D ays, #30 TAB 2 Refills Prov:CHARLIE AYOUB MD 02/26/24 Empagliflozin (Jardiance) 10 Mg Tablet, 10 MG PO DAILY for 30 Days, #30 TAB 2 Refills Prov:CHARLIE AYOUB MD 02/26/24 Atorvastatin Calcium (LIPITOR) 40 Mg Tablet, 40 MG PO HS for 30 Days, #30 TAB 2 Refills Prov:CHARLIE AYOUB MD 02/26/24 Aspirin (ASPIRIN 81 MG ECTAB) 81 Mg Ectab, 81 MG PO DAILY for 30 Days, #30 TAB.EC 2 Refills Prov:CHARLIE AYOUB MD 02/26/24 Benzonatate (Tessalon Perles) 100 Mg Cap, 100 MG PO TID for cough, #21 CAP 0 Refills Prov:RUSS AGUILAR MD 09/04/23 Budesonide/Formoterol Fumarate (Symbicort 160-4.5 Mcg Inhaler) 160 Mcg-4.5 Mcg/Actuation Hfa.aer.ad, 2 PUFF IH BID for 15 Days, #1 INHALER Prov:RUSS AGUILAR MD 09/04/23 Albuterol Sulfate (Ventolin Hfa/Proventil Hfa/Proair Hfa) 90 Mcg Puff, 2 PUFF IH Q4H for WHEEZING, #1 INHALER 0 Refills Prov:RUSS AGUILAR MD 09/04/23 Aspirin (Aspirin) 81 Mg Tab.chew, 81 MG PO DAILY for 30 Days, #30 TAB.CHEW Prov:KATYA RAMIREZ MD 10/01/22 Reported Medications Insulin Regular, Human (Humulin R) 100 Unit/Ml Vial, 10 UNITS SQ ONCE, VIAL 08/15/24 Nitroglycerin (Nitroglycerin) 0.4 Mg Tab.subl, 0.4 MG SL STAT for chest pain, TAB.SL 06/21/23 Pantoprazole Sodium (Pantoprazole Sodium) 40 Mg Tablet.dr, 40 MG PO DAILY, TAB 06/21/23 Gabapentin (Gabapentin) 400 Mg Capsule, 300 MG PO DAILY, CAP 06/21/23 Fenofibrate Nanocrystallized (Fenofibrate) 145 Mg Tablet, 145 TAB PO DAILY 06/08/23 Past Medical History Past Medical History: CHF, Diabetes-Type II, High Cholesterol, Hypertension Additional Past Medical Hx: HEART STENTS X2 Surgical History: None Surgical History Other: PLACEMENT OF HEART STENTS Social History: Smokers, Drugs, Lives with family RN Note Reviewed/Agreed w/PFSH: Yes Review of System Dictation CONSTITUTIONAL: NEGATIVE EXCEPT FOR HPI HEAD/FACE: NEGATIVE EXCEPT FOR HPI EENT: NEGATIVE EXCEPT FOR HPI RESPIRATORY: NEGATIVE EXCEPT FOR HPI LEFT ANTERIOR CHEST PAIN THAT RADIATES TO LEFT AXILLA/SHOULDER GASTROINTESTINAL/ABDOMINAL: NEGATIVE EXCEPT FOR HPI GENITOURINARY: NEGATIVE EXCEPT FOR HPI MUSCULOSKELETAL: NEGATIVE EXCEPT FOR HPI INTEGUMENTARY: NEGATIVE EXCEPT FOR HPI NEUROLOGICAL/PSYCH: NEGATIVE EXCEPT FOR HPI HEMATOLOGIC/LYMPHATIC: NEGATIVE EXCEPT FOR HPI ALL SYSTEMS NEGATIVE, EXCEPT NOTED ABOVE. 13 POINT REVIEW OF SYSTEMS ASSESSED AND ALL NEGATIVE EXCEPT FOR ABOVE. Initial Vital Sign VS Vital Signs Date Time Temp Pulse Resp B/P (MAP) Pulse Ox O2 Delivery O2 Flow Rate FiO2 10/25/24 23:22 98.2 99 22 167/107 97 Room Air 10/25/24 23:43 3 32 Physical Exam Dictation VITAL SIGNS REVIEWED GENERAL APPEARANCE: ALERT, ORIENTED X 3, MILD ACUTE DISTRESS, WELL DEVELOPED, NOURISHED. MORBIDLY OBESE HEAD AND FACE: NON-TRAUMATIC. EYES: PERRL, PINK CONJUNCTIVAS, EYELID NO TRAUMA, ANTERIOR CHAMBER WITH ARCUS SENILIS. EARS: PINNAS INTACT AND NO SIGNS OF TRAUMA OR ERYTHEMA EAR CANALS CLEAR AND NO DISCHARGE TM NO ERYTHEMA NOSE: NO DISCHARGE, NO BLEEDING. OROPHARYNX: MOUTH NORMAL, TONGUE PINK, PHARYNX CLEAR,NO ERYTHEMA, TONSILS NO EXUDATES, NO ABSCESSES NOTED, MUCOUS MEMBRANE MOIST NECK: SUPPLE, NON-TENDER, NO THYROMEGALY, NO MASSES, NO JVD, NO BRUITS BREAST:DEFERRED CHEST:NO TENDERNESS, NO CREPITUS, NO PARADOXICAL MOVEMENT, NO RETRACTIONS LUNGS:CLEAR, WELL-VENTILATED, SYMMETRIC, NO RALES, NO WHEEZING, NO RHONCHI, NO STRIDOR, GOOD BREATH SOUNDS BILATERALLY HEART: REGULAR RATE, REGULAR RHYTHM, NO MURMUR, NO GALLOPS VASCULAR: TRACE PERIPHERAL EDEMA, ABDOMEN: SOFT, POSITIVE BOWEL SOUNDS, NONDISTENDED, NO GUARDING, NONTENDER, NO REBOUND, NO MASSES NO HEPATOMEGALY, NO SPLENOMEGALY, NO GAUTHIER'S SIGN, NO HERNIAS. RECTAL: DEFERRED GENITAL: DEFERRED NEUROLOGICAL: NORMAL SPEECH, MOTOR FUNCTION INTACT, SENSORY FUNCTION INTACT MUSCULOSKELETAL: NECK NONTENDER, FULL RANGE OF MOTION, BACK NONTENDER, FULL RANGE OF MOTION, EXTREMITIES: NONTENDER, FULL RANGE OF MOTION SKIN: COLOR PINK, DRY, NO TURGOR, NO RASH, NO LACERATIONS, NO ABRASIONS, NO CONTUSIONS. LYMPHATIC: DEFERRED Results (Laboratory/Radiology) Laboratory/Radiology Laboratory Tests Test 10/25/24 23:32 10/26/24 00:18 10/26/24 00:22 White Blood Count 6.6 K/uL (4.8-10.8) Red Blood Count 5.15 MIL/uL (4.50-6.20) Hemoglobin 14.8 g/dL (14.0-18.0) Hematocrit 44.4 % (42-54) Mean Corpuscular Volume 86.2 fL (79-99) Mean Corpuscular Hemoglobin 28.7 pg (27.0-33.0) Mean Corpuscular Hemoglobin Concent 33.3 g/dL (32.0-36.0) Red Cell Distribution Width 13.2 % (11.0-15.5) Platelet Count 278 K/uL (130-400) Mean Platelet Volume 9.2 fL (7.5-10.5) Immature Granulocyte % (Auto) 0.3 % (0-1) Neutrophils (%) (Auto) 65.6 % (40.0-77.0) Lymphocytes (%) (Auto) 26.2 % (21.0-51.0) Monocytes (%) (Auto) 7.0 % (3.0-13.0) Eosinophils (%) (Auto) 0.6 % (0.0-8.0) Basophils (%) (Auto) 0.3 % (0.0-5.0) Neutrophils # (Auto) 4.3 K/uL (1.8-7.7) Lymphocytes # (Auto) 1.7 K/uL (1.0-4.8) Monocytes # (Auto) 0.5 K/uL (0.1-1.0) Eosinophils # (Auto) 0.04 K/uL (0.00-0.70) Basophils # (Auto) 0.02 K/uL (0.00-0.20) Absolute Immature Granulocyte (auto 0.02 K/uL (0-1) Nucleated Red Blood Cells 0.0 % (0.0-0.19) Sodium Level 139 mmol/L (136-145) Potassium Level 4.6 mmol/L (3.5-5.1) Chloride Level 103 mmol/L (101-111) Carbon Dioxide Level 30 mmol/L (21-32) Blood Urea Nitrogen 25 mg/dL (7-18) H Creatinine 1.1 mg/dL (0.5-1.3) Glomerular Filtration Rate Calc 84 mL/min (>90) Random Glucose 437 mg/dL (70-105) *H Total Calcium 7.9 mg/dL (8.5-10.1) L Total Creatine Kinase 99 U/L (21-232) Troponin I High Sensitivity 20 ng/L (4-75) B-Type Natriuretic Peptide 97 pg/mL (0-100) Whole Blood Ketones Quantitative 0.4 mmol/L (0.0-0.6) Whole Blood Glucose 390 MG/DL (70-110) H Labs Reviewed?: Yes EKG Comment: EKG SINUS RHYTHM/HEART RATE 98/NC INTERVAL 212 MILLISECOND/NO AXIS DEVIATION ED Course ED Course Orders Procedure Category Date Status Time Vital Signs Per CPOE 10/25/24 Transmitted Routine 23:27 B-Type Natriuretic LAB 10/25/24 Complete Peptide 23:27 Chest 1vw RAD 10/25/24 Taken 23:27 12 Lead Ekg Tracing- EKG 10/25/24 Logged Technical 23:27 Oxygen By Nc/Pulse Ox CPOE 10/25/24 Transmitted 23:27 Maintain Iv CPOE 10/25/24 Transmitted 23:27 Iv Insertion CPOE 10/25/24 Transmitted 23:27 Cardiac Monitoring CPOE 10/25/24 Transmitted 23:27 Pulse Oximetry With CPOE 10/25/24 Transmitted Vs And Prn 23:27 Cbc With Differential LAB 10/25/24 Complete 23:27 Activity: Br W/Brp CPOE 10/25/24 Transmitted With Assist 23:27 Creatine Kinase, Total LAB 10/25/24 Complete 23:27 Troponin I High LAB 10/25/24 Complete Sensitivity 23:27 Urinalysis Profile LAB 10/25/24 In Process 23:27 Basic Metabolic Panel LAB 10/25/24 Complete 23:27 12 Lead Ekg Tracing- EKG 10/25/24 Logged Technical 23:28 Ketone Blood LAB 10/26/24 Complete Quantitative 00:05 0.9%Nacl 1000ml (Ns PHA 10/26/24 Complete 1000ml) 00:30 Insulin Regular, PHA 10/26/24 Complete Human 3ml (Humulin R 00:30 Admit Orders ADM 10/26/24 Transmitted 00:36 Edm Admit Bridge Order ADM 10/26/24 Transmitted 00:39 Current Medications Medications (Trade) Dose Ordered Sig/Rose Marie Route PRN Reason Start Time Stop Time Status Last Admin Dose Admin Insulin Human Regular (humuLIN R 100 UNIT/ML 3ML) 12 unit ONCE ONCE IV 10/26/24 00:30 10/26/24 00:31 DC Sodium Chloride 1,000 ml @ 0 mls/hr ONCE ONCE IV 10/26/24 00:30 10/26/24 00:31 DC 10/26/24 00:27 Vital Signs Date Time Temp Pulse Resp B/P (MAP) Pulse Ox O2 Delivery O2 Flow Rate FiO2 10/25/24 23:43 98.4 98 18 140/95 99 Nasal Cannula* 3 32 10/25/24 23:22 98.2 99 22 167/107 97 Room Air 0025/PATIENT WILL BE ADMITTED TO THE HOSPITAL FOR HIGH-RISK CHEST PAIN, UNCONTROLLED DIABETES AND DEHYDRATION. HE WAS MADE AWARE OF THIS AND HE AGREES TO BE ADMITTED. STATES HE RAN OUT OF HIS DIABETIC MEDICATIONS SEVERAL DAYS AGO AND DID NOT FOLLOW UP WITH HIS DOCTOR DUE TO FINANCIAL CONDITIONS FOR REFILLS. 0030/SPOKE WITH GALI EUGENE HOSPITALIST REVIEWED EKG LABS CHEST X-RAY AND FINDINGS TO INCLUDE UNCONTROLLED DIABETES SHE AGREED TO ADMIT PAIN HEART Score Response (Comments) Value EKG: Repolarization changes 1 Age: 45-65yrs (+1) 1 Risk Factors: 3+ risk factors (+2) 2 Initial Troponin: Normal limit (0) 0 Total 4 Medical Decision Making MDM MDM: DIFFERENTIAL DIAGNOSIS: ACS/AMI/FLUID OVERLOAD/PNEUMONIA/BRONCHITIS/ELECTROLYTE IMBALANCE/DEHYDRATION/UNCONTROLLED DIABETES RATIONALE: TESTS CONSIDERED AND ORDERED SECONDARY TO SHARED DECISION MAKING INCLUDE: LABS, ECG AND RADIOLOGY PREVIOUS OUTSIDE RECORDS REVIEWED: OLD ER VISITS. RISK OF COMPLICATION AND/OR MORBIDITY OR MORTALITY OF PATIENT MANAGEMENT: MODERATE MEDICATIONS-PER MEDICATION RECONCILIATION NEED FOR HOSPITALIZATION: PATIENT DOES MEET CRITERIA FOR HOSPITALIZATION. PATIENT WILL NEED TO BE ADMITTED FOR SERIAL EKG AND TROPONIN CONTROL OF DIABETES AND REHYDRATION NEED FOR EMERGENCY MAJOR/MINOR SURGERY: NO THERE ARE NO SOCIAL CONCERNS WITH THIS PATIENT. PRESCRIPTION DRUG MANAGEMENT PRESCRIPTIONS WILL INCLUDE SYMPTOMATIC CARE PATIENT'S PRIOR EXTERNAL MEDICAL RECORDS FROM OTHER ER VISITS WERE REVIEWED BY ME INDICATED. PRIOR TESTING AND RESULTS FROM PREVIOUS VISITS WERE REVIEWED. PRIOR TESTS WERE TAKEN INTO ACCOUNT WITH MEDICAL DECISION MAKING AND RESOURCE UTILIZATION, INDEPENDENT HISTORIAN/HISTORIANS WERE USED TO OBTAIN COMPLETE MEDICAL HISTORY. I INDEPENDENTLY INTERPRETED THE TEST THAT WERE PERFORMED, RESULTS WERE REVIEWED BY ME AND CONSIDERED FINDINGS ON RADIOLOGY IF ORDERED. MEDICAL MANAGEMENT AND EXAMINATION INTERPRETATION DISCUSSIONS WERE HAD BY ME WITH OTHER QUALIFIED HEALTHCARE PROFESSIONALS INDICATED FOR THE PATIENT'S C ARE. DX & DISP Disposition: Inpatient Decision to Admit Time: 00:31 Departure Impression: Primary Impression: Chest pain with high risk for cardiac etiology Additional Impressions: Uncontrolled diabetes mellitus, Dehydration, Supplemental oxygen dependent Condition: Stable Referrals: ANABELL RAM (PCP) Time of Disposition: 00:31 I have reviewed the case, and I agree with, Diagnosis and Plan MEGHAN NIX NP Oct 25, 2024 23:47
[2024-10-25 23:57] LABS: CREATININE 1.1 mg/dL (0.5-1.3); POTASSIUM 4.6 mmol/L (3.5-5.1)
[2024-10-26 00:11] LABS: B-TYPE NATRIURETIC PEPTIDE 97 pg/mL (0-100)
[2024-10-26] MEDS: 0.9%NACL 1000ML 1,000 ML IV ONE (00:27)
[2024-10-26] MEDS: INSULIN humuLIN R 100 UNIT/ML 3ML IV ONE (00:47)
[2024-10-26 00:48] LABS: APPEARANCE,URINE CLEAR (CLEAR); BILIRUBIN,URINE NEGATIVE (NEGATIVE); COLOR,URINE COLORLESS (YELLOW); GLUCOSE, URINE (UA) >=1000 mg/dL (NEGATIVE); KETONES,URINE NEGATIVE (NEGATIVE); LEUKOCYTE ESTERASE ,URINE NEGATIVE Leu/uL (NEGATIVE); NITRATE,URINE NEGATIVE (NEGATIVE); OCCULT BLOOD,URINE MODERATE (NEGATIVE); PH,URINE 5.5 (5.0-8.0); PROTEIN,URINE NEGATIVE (NEGATIVE); UROBILINOGEN,URINE 0.2 mg/dL (0.2-1.0)
[2024-10-26 00:49] LABS: ADD UA MICROSCOPIC YES
[2024-10-26 00:50] LABS: BACTERIA,URINE RARE /HPF (None Seen); SQUAMOUS EPITHELIAL CELL,UR RARE /HPF (0-2)
[2024-10-26] MEDS: ASPIRIN 81 MG EC TAB PO ONE (01:08)
--- NOTE | 2024-10-26 01:21 | HMCIMG ---
CHEST 1VW HISTORY: Chest pain COMPARISON: 08/19/2024 FINDINGS: A frontal projection of the chest was obtained. There are bilateral pulmonary infiltrates suggestive of pulmonary vascular congestion with possible superimposed pneumonitis. The heart is normal in size. Degenerative changes are seen. No evidence of aortic calcification is seen. IMPRESSION: 1. Mild bilateral pulmonary infiltrates are seen may be related to mild pulmonary vascular congestion with possible superimposed pneumonitis.
[2024-10-26] MEDS ORDERED: acetaMINOPHEN 325 MG TAB PO PRN (02:00)
[2024-10-26] MEDS ORDERED: TEMAZepam 15 MG CAPSULE PO PRN (02:00)
[2024-10-26] MEDS ORDERED: ondanSETRON 4MG INJ IVP PRN (02:00)
[2024-10-26] MEDS ORDERED: doCUSate SODIUM 100 MG CAP PO PRN (02:00)
[2024-10-26] MEDS ORDERED: LAbetaLOL 20MG SYG IV PRN (02:00)
[2024-10-26] MEDS ORDERED: LACTULOSE 20 GM/30 ML UDCUP PO PRN (02:00)
[2024-10-26] MEDS ORDERED: acetaMINOPHEN 650 MG SUPPOSITORY RC PRN (02:00)
--- NOTE | 2024-10-26 02:11 | HP ---
[facility] Date of Service: Oct 26, 2024 Time of Service: 02:11 HISTORY OF PRESENT ILLNESS: Mr. Joya is a 44-year-old male with a history of CAD s/p cardiac stents x2, morbid obesity, CHF, DM type 2, hypercholesteremia, hypertension who presented to [facility] for evaluation of left anterior chest pain that radiates to the left axilla and left shoulder onset two days ago. The patient stated he was working in his house when he failed the pain. On arrival to the ED the patient reports the pain slightly improved with nitroglycerin. The patient denied any nausea, vomiting, back pain, jaw pain. He follows with his grounds and nursery specialist Dr. Ba. EKG: Sinus rhythm, heart rate 98 beats per minute. Chest x-ray: Mild b ilateral pulmonary infiltrates are seen maybe related to mild pulmonary vascular congestion with superimposed pneumonitis. Labs reviewed: D-dimer and BNP WNL, troponin negative x2. Remarkable lab results: Glucose 437, BUN 25, GFR 84. The CTA chest: on 08/15/2024 was negative for PE. Impression: Bilateral lung infiltrates and minimal bilateral pleural effusion as well as small pericardial effusion. Echocardiogram on 08/17/2024 LVEF 45-50%. The patient was assessed by me in ED 17. The patient reported constant chest pain, was quiet. at bedside was answering for him most of the time. The reports that the patient ran out of his insulin and his diabetic pills onset one week. She states that she saw Dr. Ba, grounds and nursery specialist about two months ago. He had an appointment this Saturday with his grounds and nursery specialist but was not able to make it. I informed the and at bedside of labs, diagnosti cs, plan of care. They verbalized understanding and are in agreement with the plan. Plan and assessment are listed below. REVIEW OF SYSTEMS 12-point ROS reviewed with patient. All pertinent positives mentioned above. Otherwise negative, noncontributory, or non-pertinent. PAST MEDICAL HISTORY: As mentioned above PAST SURGICAL HISTORY: As mentioned above PAST SOCIAL HISTORY: Patient denies alcohol, tobacco, illicit drug use. FAMILY HISTORY: Noncontributory Coded Allergies: No Known Drug Allergies (Unverified Allergy, Unknown, 05/09/18) Unable to Assess (Verified Allergy, Unknown, 05/09/18) PHYSICAL EXAM GENERAL APPEARANCE: The patient is awake, alert, and oriented, in no acute cardiopulmonary distress. NEUROLOGICAL: Cranial nerves II-XII grossly intact. Motor is 5/5 in bilateral upper and lower extremities proximal to distal. No sensory deficits. HEENT: Face is symmetric. Pupils are equal and reactive. Extraocular movements are intact. NECK: Supple. No JVD. No thyromegaly. No submental, submandibular, pre- /postauricular, occipital or supraclavicular lymphadenopathy. CHEST: Normal chest expansion. No Telemetry. LUNGS: Absence of any rales, rhonchi or any wheezing. CARDIOVASCULAR: Regular. S1 and S2 normal. No appreciable rubs, murmurs or gallops. ABDOMEN: Obese. Soft, nontender, and nondistended. There is no rebound, voluntary guarding, or rigidity. : Deferred. No [place]. EXTREMITIES: Non-edematous and not cyanotic. No clubbing. Good capillary refill. SKIN: No skin breakdown. Vital Sign (Last 24 Hours) 10/25/24 23:43 Temp 98.4 Pulse 98 Resp 18 B/P (MAP) 140/95 Pulse Ox 99 O2 Delivery Nasal Cannula* O2 Flow Rate 3 FiO2 32 LABS: Laboratory: Test 10/26/24 00:35 10/26/24 00:22 10/26/24 00:18 10/25/24 23:32 Range/Units Urine Color COLORLESS YELLOW Urine Appearance CLEAR CLEAR Urine pH 5.5 5.0-8.0 Urine Specific [place]ra 1.024 1.001-1.031 Urine Protein NEGATIVE NEGATIVE mg/dL Urine Glucose (UA) >=1000 H NEGATIVE mg/dL Urine Ketones NEGATIVE NEGATIVE mg/dL Urine Occult Blood MODERATE H NEGATIVE Urine Nitrate NEGATIVE NEGATIVE Urine Bilirubin NEGATIVE NEGATIVE mg/dL Urine Urobilinogen 0.2 0.2-1.0 mg/dL Urine Leukocyte Esterase NEGATIVE NEGATIVE Micah/uL Urine RBC 11-25 H 0-1 /HPF Urine WBC 2-5 H 0-1 /HPF Urine Squamous Epithelial Cells RARE 0-2 /HPF Urine Bacteria RARE None Seen /HPF Whole Blood Glucose 390 H 70-110 MG/DL Whole Blood Ketones Quantitative 0.4 0.0-0.6 mmol/L White Blood Count 6.6 4.8-10.8 K/uL Red Blood Count 5.15 4.50-6.20 MIL/uL Hemoglobin 14.8 14.0-18.0 g/dL Hematocrit 44.4 42-54 % Mean Corpuscular Volume 86.2 79-99 fL Mean Corpuscular Hemoglobin 28.7 27.0-33.0 pg Mean Corpuscular Hemoglobin Concent 33.3 32.0-36.0 g/dL Red Cell Distribution Width 13.2 11.0-15.5 % Platelet Count 278 130-400 K/uL Mean Platelet Volume 9.2 7.5-10.5 fL Immature Granulocyte % (Auto) 0.3 0-1 % Neutrophils (%) (Auto) 65.6 40.0-77.0 % Lymphocytes (%) (Auto) 26.2 21.0-51.0 % Monocytes (%) (Auto) 7.0 3.0-13.0 % Eosinophils (%) (Auto) 0.6 0.0-8.0 % Basophils (%) (Auto) 0.3 0.0-5.0 % Neutrophils # (Auto) 4.3 1.8-7.7 K/uL Lymphocytes # (Auto) 1.7 1.0-4.8 K/uL Monocytes # (Auto) 0.5 0.1-1.0 K/uL Eosinophils # (Auto) 0.04 0.00-0.70 K/uL Basophils # (Auto) 0.02 0.00-0.20 K/uL Absolute Immature Granulocyte (auto 0.02 0-1 K/uL Nucleated Red Blood Cells 0.0 0.0-0.19 % Sodium Level 139 136-145 mmol/L Potassium Level 4.6 3.5-5.1 mmol/L Chloride Level 103 101-111 mmol/L Carbon Dioxide Level 30 21-32 mmol/L Blood Urea Nitrogen 25 H 7-18 mg/dL Creatinine 1.1 0.5-1.3 mg/dL Glomerular Filtration Rate Calc 84 >90 mL/min Random Glucose 437 *H 70-105 mg/dL Total Calcium 7.9 L 8.5-10.1 mg/dL Total Creatine Kinase 99 21-232 U/L Troponin I High Sensitivity 20 4-75 ng/L B-Type Natriuretic Peptide 97 0-100 pg/mL Current Medications Medications (Trade) Dose Ordered Sig/Rose Marie Route PRN Reason Start Time Stop Time Status Last Admin Dose Admin Acetaminophen (TYLenol 325MG TAB) 650 mg Q6H PRN PO FEVER/MILD PAIN LEVEL 1-3 10/26/24 02:00 11/25/24 01:59 Acetaminophen (TYLenol 650MG SUPPOSITORY) 650 mg Q6H PRN RC FEVER / MILD PAIN 1-3 IF NPO 10/26/24 02:00 11/25/24 01:59 Aspirin (Aspirin 81mg Ec Tab) 81 mg DAILY PO 10/26/24 09:00 11/25/24 08:59 Atorvastatin Calcium (LIPItor 40MG) 40 mg HS PO 10/26/24 21:00 11/25/24 20:59 Docusate Sodium (COLace 100MG CAP) 100 mg BID PRN PO CONSTIPATION 10/26/24 02:00 11/25/24 01:59 Enoxaparin Sodium (Lovenox) 40 mg DAILY SQ 10/26/24 09:00 11/25/24 08:59 Famotidine (Pepcid 20mg Tab) 20 mg BID PO 10/26/24 09:00 11/25/24 08:59 Insulin Human Regular (humuLIN R 100 UNIT/ML 3ML) INSULIN SLIDING SCAL... ACHS SQ 10/26/24 07:30 11/25/24 07:29 Labetalol HCl (TRANdate 20MG SYG) 10 mg Q2H PRN IV SBP GREATER THAN 160 10/26/24 02:00 11/25/24 01:59 Lactulose (Constulose 20gm/ 30ml Udcup) 20 gm Q6H PRN PO CONSTIPATION 10/26/24 02:00 11/25/24 01:59 Ondansetron HCl (zoFRAN 4MG INJ) 4 mg Q6H PRN IVP NAUSEA/VOMITING 10/26/24 02:00 11/25/24 01:59 Temazepam (restORIL 15 MG CAP) 15 mg HS PRN PO INSOMNIA/SLEEP 10/26/24 02:00 11/25/24 01:59 DIAGNOSTICS / RADIOLOGY: [ ] ASSESSMENT: Acute chest pain, POA, rule out acute coronary syndrome, troponin negative x2 LVEF 45-50% per echo on 08/17/2024 Pulmonary vascular congestion with superimposed pneumonitis, POA Small pericardial effusion, per CT on Diabetes mellitus with hyperglycemia Medication noncompliance Acute dehydration Acute on chronic kidney disease, GFR 84 Uncontrolled hypertension Obesity, BMI 37.3 Chronic problem list: CAD s/p cardiac stents x2, morbid obesity, CHF, DM type 2, hypercholesteremia, hypertension PLAN: Admit to medical floor with continuous telemetry monitoring. -Troponin levels and EKG series. -Cardiology consult in the am. -2D echo in a.m. with heart clinic to read r/o pericardial effusion. -P.R.N. Medications for: Pain management, nausea, vomiting, constipation, hypertension, fever -Oxygen supplement as needed to maintain oxygen levels equal to or greater than 92% -Nitroglycerin paste q.8 hours for chest pain. -One time dose of colchicine to decrease pain for possible small pericardial effusion. -Start doxycycline for superimposed pneumonitis. -Aspirin 81 mg p.o. daily. -Atorvastatin 40 mg PO daily. -Blood pressure checks every 4 hours and as needed. -Reconcile home medications once available. -Glucometer checks before meals and at bedtime with insulin regular sliding scale. -AM labs: TSH, monitor renal and liver function, monitor electrolytes and replace PRN -DVT and GI prophylaxis: Lovenox and Protonix. ADVANCED CARE PLANNING 1. Which of the following were discussed? Hospice Care - No Therapeutic options - Yes Advance Directives - Yes Other discussions - 2. Discussed with who? Patient 3. Voluntary nature of this service was explained to the patient? Yes 4. Amount of time spent - ___ over 35 minute ____ 5. Reviewed by Physician? (if this service was performed by NPP) Yes ADDENDUM: Incomplete workup by [facility]-level - cardiology never consulted, we will place consult - although there was a concern for ACS none of the ACS protocol was started - start aspirin 81 mg daily - start Plavix 75 mg daily - start atorvastatin 40 mg daily - physical exam revealed pain in left chest wall with palpation suggesting MSK - drug screen positive for cocaine ATTENDING PHYSICIAN ATTESTATION: I have reviewed the [facility]'s plan. I have independently seen, reviewed the chart and made my own assessment of the patient. See my addendum for updates to the [facility]'s medical plan MD KENTON Huffman LUCIA M [facility] Oct 26, 2024 02:11 WILLIAM BARKER MD Oct 27, 2024 15:25
[2024-10-26] MEDS ORDERED: PoTASSium chl 10% ELIXIR 20MEQ 20 MEQ/15 ML UDCUP PO PRN (02:30)
[2024-10-26] MEDS ORDERED: MAGNESIUM 2GM PREMIX 50ML 50 ML IV PRN (02:30)
[2024-10-26] MEDS ORDERED: GLUCAGON 1MG KIT 1 MG ML IM PRN (02:30)
[2024-10-26] MEDS ORDERED: PoTASSium chloRIDE 20MEQ/100ML 100 ML IV PRN (02:30)
[2024-10-26] MEDS ORDERED: DEXTROSE 50%-WATER 50 ML DISP.SYRIN IV PRN (02:30)
[2024-10-26] MEDS ORDERED: PoTASSium chloRIDE 20MEQ ER 20 MEQ ERTAB PO PRN (02:30)
[2024-10-26] MEDS: NITROGLYCERIN 1GM OINT 1 INCH/1GM TD SCH (05:11)
[2024-10-26] MEDS: COLCHicine 0.6 MG TABLET PO ONE (05:12)
[2024-10-26 07:11] LABS: HEMATOCRIT 48.2 % (42-54); MEAN CORPUSCULAR HEMOGLOBIN 28.1 pg (27.0-33.0); MEAN CORPUSCULAR HGB CONC 32.4 g/dL (32.0-36.0); MEAN CORPUSCULAR VOLUME 86.8 fL (79-99); RED BLOOD CELL COUNT(AUTO) 5.55 MIL/uL (4.50-6.20); RED CELL DISTRIBUTION WIDTH 13.2 % (11.0-15.5); WHITE BLOOD COUNT (AUTO) 7.2 K/uL (4.8-10.8)
[2024-10-26 07:25] LABS: ALBUMIN 3.2 g/dL (3.5-5.0); BILIRUBIN,TOTAL 0.2 mg/dL (0.2-1.0); CREATININE 0.9 mg/dL (0.5-1.3); PHOSPHORUS 2.9 mg/dL (2.5-4.9); POTASSIUM 3.8 mmol/L (3.5-5.1); TOTAL PROTEIN, SERUM 6.3 g/dL (6.0-8.3)
--- NOTE | 2024-10-26 07:50 | EKG ---
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
[2024-10-26] MEDS: INSULIN humuLIN R 100 UNIT/ML 3ML SQ SCH (08:13)
[2024-10-26 09:46] LABS: AMPHET/METH SCREEN,URINE NEGATIVE (NEGATIVE); BARBITURATE SCREEN, URINE NEGATIVE (NEGATIVE); BENZODIAZEPINES SCREEN,URINE NEGATIVE (NEGATIVE); CANNABINOID SCREEN,URINE NEGATIVE (NEGATIVE); COCAINE SCREEN,URINE POSITIVE (NEGATIVE); OPIATE SCREEN,URINE NEGATIVE (NEGATIVE); PHENCYCLIDINE SCREEN,URINE NEGATIVE (NEGATIVE)
[2024-10-26] MEDS: FAMOTIDINE 20MG TAB PO SCH (10:02)
[2024-10-26] MEDS: ASPIRIN 81 MG EC TAB PO SCH (10:02)
[2024-10-26] MEDS: DOXYCYCLINE 100MG+NS 250ML 250 ML IV SCH (10:02)
[2024-10-26] MEDS: ENOXAPARIN SODIUM 40 MG/0.4 ML SYRINGE SQ SCH (10:03)
[2024-10-26] MEDS ORDERED: NITROGLYCERIN 0.4 MG SL TAB SL PRN (11:30)
[2024-10-26] MEDS: atorVAStatin 40 MG TABLET ONE (11:35)
[2024-10-26] MEDS: NITROGLYCERIN 0.4 MG SL TAB SL ONE (11:36)
[2024-10-26] MEDS: cloPIDOgrel 75MG TAB ONE (11:36)
[2024-10-26] MEDS: atorVAStatin 40 MG TABLET PO ONE (11:37)
[2024-10-26] MEDS: cloPIDOgrel 75MG TAB PO ONE (11:37)
--- NOTE | 2024-10-26 12:42 | NUR ---
DCP: HOME Pt is , lives with Abbie Nagel [phone] who was at bedside. 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 Pt reports he is independent of all his ADLS, still drives and states he is active. No DME or in home care services needed at his time. Pt denies need for SNF, and states he will return home at dc Addendum: 10/26/24 at 1243 by YURIY ORTEZ Amended: Links added.
--- NOTE | 2024-10-26 13:27 | EKG ---
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
--- NOTE | 2024-10-26 14:34 | NUR ---
CALLED WILBER DELONG AT 1434 , SHE IS EATING LUNCH NOW AND WILL CALL ME BACK.
--- NOTE | 2024-10-26 14:50 | CONS ---
[facility] CARDIOLOGY CONSULTATION REPORT Cardiology consultation note dictated for Brian Valdez MD Primary motor rebuilder: Luciano Ba MD Date Patient Seen: Oct 26, 2024 Requesting Physician: Alexandr Meek MD Reason for Consultation: Chest pain History of Present Illness: This is a 44-year-old male with a past medical history hypertension, hyperlipidemia, diabetes mellitus type 2, CAD, inferior wall [place] in 2013, LHC on 10/01/2013 revealed a spontaneously terminated anterior STEMI due to ulceration of the plaque in the proximal LAD with no obstructive residual lesion, thick media and generalized coronary ectasia may be related to cocaine use, NSTEMI s/p LHC on 05/09/2018 revealed 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 He was cocaine positive on admission. Cardiology has been consulted for chest pain. The patient states on Saturday, he was working in his yard from approximately [id number] when he began to experience constant left lateral rib, left chest, and left tricep discomfort. He describes the discomfort as a burning sensation and heaviness with an 8/10 intensity. He states he felt dizzy, short of breath, and like he was going to faint while outside in the sun. The discomfort has not ceased, but intensity has decreased. Aggravating factors include deep breathing, palpation, and laying on his left side. He admits to running out of all medications for approximately 2 weeks. Troponin of 20 and 21. EKG on admission demonstrated normal sinus rhythm/first- degree AV block with a heart rate of 98 bpm. Past Medical History: As per HPI and summarized below Past Surgical History: None Family History: Noncontributory Social History: The patient lives with his . Habits: The patient admits to cocaine use, tobacco use and occasional alcohol use. Home Meds: None Current Meds: Current Medications Medications Dose Ordered Sig/Rose Marie Start Time Stop Time Status Last Admin Aspirin 81 mg DAILY 10/26/24 09:00 11/25/24 08:59 10/26/24 10:02 Atorvastatin Calcium 40 mg HS 10/27/24 21:00 11/26/24 20:59 Famotidine 20 mg BID 10/26/24 09:00 11/25/24 08:59 10/26/24 10:02 Enoxaparin Sodium 40 mg DAILY 10/26/24 09:00 11/25/24 08:59 10/26/24 10:03 Acetaminophen 650 mg Q6H PRN 10/26/24 02:00 11/25/24 01:59 Acetaminophen 650 mg Q6H PRN 10/26/24 02:00 11/25/24 01:59 Lactulose 20 gm Q6H PRN 10/26/24 02:00 11/25/24 01:59 Docusate Sodium 100 mg BID PRN 10/26/24 02:00 11/25/24 01:59 Temazepam 15 mg HS PRN 10/26/24 02:00 11/25/24 01:59 Ondansetron HCl 4 mg Q6H PRN 10/26/24 02:00 11/25/24 01:59 Labetalol HCl 10 mg Q2H PRN 10/26/24 02:00 11/25/24 01:59 Insulin Human Regular INSULIN SLIDING SCAL... ACHS 10/26/24 07:30 11/25/24 07:29 10/26/24 13:08 Dextrose 50 ml AD PRN 10/26/24 02:30 11/25/24 02:29 Glucagon 1 mg AD PRN 10/26/24 02:30 11/25/24 02:29 Potassium Chloride 100 ml @ 100 mls/hr AD PRN 10/26/24 02:30 11/25/24 02:29 Potassium Chloride 20 meq AD PRN 10/26/24 02:30 11/25/24 02:29 Potassium Chloride 20 meq AD PRN 10/26/24 02:30 11/25/24 02:29 Magnesium Sulfate 50 ml @ 0 mls/hr PROTOCOL PRN 10/26/24 02:30 11/25/24 02:29 Nitroglycerin 1 inch Q8H 10/26/24 03:00 11/25/24 02:59 10/26/24 13:39 Doxycycline Hyclate 250 ml @ 125 mls/hr Q12H 10/26/24 08:30 11/05/24 08:29 10/26/24 10:02 Nitroglycerin 0.4 mg AD PRN 10/26/24 11:30 11/25/24 11:29 Review of Systems: CONST: No fever, fatigue, or weight changes. EYES: No recent vision problems. ENT: No congestion, ear pain, or sore throat. C/V: Admits to left lateral chest and triceps discomfort RESP: No cough, congestion, wheezing or shortness of breath. GI: No abdominal pain, nausea, vomiting, constipation, or diarrhea. : No incontinence or dysuria. SKIN: No rash. NEURO: No headache, focal numbness or weakness, dizziness, or seizures. PSYCH: No depression or anxiety. HEME: No abnormal bruising or bleeding. LYMPH: No swollen glands. Physical Examination: GENERAL: No acute distress. HEAD: Normal with no signs of head trauma. EYES: PERRLA, EOMI, conjunctiva and sclera normal. ENT: Hearing grossly intact, normal oropharynx. NECK: Supple without JVD. There is no tenderness, lymphadenopathy, or masses. No thyromegaly. Normal carotid upstrokes without bruits. LUNGS: Clear breath sounds bilaterally. No wheezes, or rhonchi. HEART: Normal rate and rhythm. Normal S1 and S2 without murmurs, gallop or rub. VASC: Peripheral pulses +2 bilaterally. ABD: Bowel sounds normal, soft, nontender, no masses, no organomegaly. No audible bruits. : Not examined LYMPH: No lymphadenopathy noted. EXT: No clubbing, cyanosis or edema. SKIN: No rashes or lesions noted. NEURO: Awake, alert, and oriented x3. No focal sensory or strength deficits noted. Vital Signs (last 8hr) Date Time Temp Pulse Resp B/P (MAP) Pulse Ox O2 Delivery O2 Flow Rate FiO2 10/26/24 10:38 98.1 87 16 132/95 98 Nasal Cannula* 3 32 10/26/24 07:39 88 15 138/97 97 Room Air* 0 21 Laboratory: Hematology Labs: Test 10/26/24 06:40 10/25/24 23:32 Range/Units White Blood Count 7.2 4.8-10.8 K/uL Red Blood Count 5.55 4.50-6.20 MIL/uL Hemoglobin 15.6 14.0-18.0 g/dL Hematocrit 48.2 42-54 % Mean Corpuscular Volume 86.8 79-99 fL Mean Corpuscular Hemoglobin 28.1 27.0-33.0 pg Mean Corpuscular Hemoglobin Concent 32.4 32.0-36.0 g/dL Red Cell Distribution Width 13.2 11.0-15.5 % Platelet Count 281 130-400 K/uL Mean Platelet Volume 9.4 7.5-10.5 fL Nucleated Red Blood Cells 0.0 0.0-0.19 % Immature Granulocyte % (Auto) 0.3 0-1 % Neutrophils (%) (Auto) 65.6 40.0-77.0 % Lymphocytes (%) (Auto) 26.2 21.0-51.0 % Monocytes (%) (Auto) 7.0 3.0-13.0 % Eosinophils (%) (Auto) 0.6 0.0-8.0 % Basophils (%) (Auto) 0.3 0.0-5.0 % Neutrophils # (Auto) 4.3 1.8-7.7 K/uL Lymphocytes # (Auto) 1.7 1.0-4.8 K/uL Monocytes # (Auto) 0.5 0.1-1.0 K/uL Eosinophils # (Auto) 0.04 0.00-0.70 K/uL Basophils # (Auto) 0.02 0.00-0.20 K/uL Absolute Immature Granulocyte (auto 0.02 0-1 K/uL Chemistry Labs: Test 10/26/24 12:00 10/26/24 06:40 10/26/24 00:18 10/25/24 23:32 Range/Units Whole Blood Glucose 315 H 70-110 MG/DL Sodium Level 138 136-145 mmol/L Potassium Level 3.8 3.5-5.1 mmol/L Chloride Level 105 101-111 mmol/L Carbon Dioxide Level 30 21-32 mmol/L Blood Urea Nitrogen 20 H 7-18 mg/dL Creatinine 0.9 0.5-1.3 mg/dL Glomerular Filtration Rate Calc 107 >90 mL/min Random Glucose 268 H 70-105 mg/dL Total Calcium 8.3 L 8.5-10.1 mg/dL Phosphorus Level 2.9 2.5-4.9 mg/dL Magnesium Level 2.00 1.80-2.40 mg/dL Total Bilirubin 0.2 0.2-1.0 mg/dL Aspartate Amino Transf (AST/SGOT) 13 10-37 U/L Alanine Aminotransferase (ALT/SGPT) 22 12-78 U/L Alkaline Phosphatase 98 50-136 U/L Troponin I High Sensitivity 21 4-75 ng/L Total Protein 6.3 6.0-8.3 g/dL Albumin 3.2 L 3.5-5.0 g/dL Whole Blood Ketones Quantitative 0.4 0.0-0.6 mmol/L Total Creatine Kinase 99 21-232 U/L B-Type Natriuretic Peptide 97 0-100 pg/mL Coagulation Labs: Test 10/26/24 06:40 Range/Units D-Dimer Quantitative (PE/DVT) 253 0-500 ng/mL Diagnostics / Radiology: Impression and Plan: Atypical chest pain HTN HLD DM type II CAD, inferior wall [place] in 2013, LHC on 10/01/2013 revealed a spontaneously terminated anterior STEMI due to ulceration of the plaque in the proximal LAD with no obstructive residual lesion, thick media and generalized coronary ectasia may be related to cocaine use NSTEMI s/p LHC on 05/09/2018 revealed 100% NATURAL G[employer] TREATING UNIT 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 of the LAD with wire perforation into the adventitia of the vessel, PTCA and stent to the RCA with a [id number] Xience Alpine stent and thrombectomy of distal thrombus LHC on 02/24/2024 revealed a patent RCA stent, a chronically occluded LAD, and severe systolic heart failure and diastolic failure 2D echo on 08/16/2024 with an EF of 45-50% MIGUEL A COPD on home O2 at 3 L Obesity Polysubstance abuse Noncompliance Urine drug screen positive for cocaine on 10/26/2024 Atypical chest pain Troponin of 20 and 21 EKG on admission demonstrated normal sinus rhythm/first-degree AV block with a heart rate of 98 bpm The patient states on Saturday, he was working in his yard from approximately [phone] when he began to experience constant left lateral rib, left chest, and left tricep discomfort. He describes the discomfort as a burning sensation and heaviness with an 8/10 intensity. He states he felt dizzy, short of breath, and like he was going to faint while outside in the sun. The discomfort has not ceased, but intensity has decreased. Aggravating factors include deep breathing, palpation, and laying on his left side. -[id number] mg IV x1 -Lidocaine 4% patch to left lateral chest wall -Resume home medications of aspirin 81 mg daily, atorvastatin 40 mg nightly, and lisinopril 2.5 mg daily -Hold Beta-marni due to active cocaine abuse -Follow-up with Dr. Ba in 7 days after discharge. Take medication bottles in to the appointment. RADHA ADAMSON TRUST MAIL CLERK Oct 26, 2024 14:50
[2024-10-26] MEDS ORDERED: metOPROLol sucCINATE 25 MG TAB.SR.24H PO SCH (15:00)
[2024-10-26] MEDS: ketOROlac 15MG/ML VIAL (15MG/ML) IM ONE (15:00)
--- NOTE | 2024-10-26 15:17 | NUR ---
REPORT GIVEN TO WILBER DELONG AT 1515, PT STABLE NO DISTRESS, VITALS WNL NO C/O PAIN AT BEDSIDE WITH PERSONAL BELONGINGS, PT TRANSFERRED BY BED.
[2024-10-26 15:35] VITALS: BP 106/79; PULSE 94; RESP 20; TEMP 97.8
[2024-10-26 15:40] VITALS: O2SAT 98
[2024-10-26] MEDS ORDERED: FURO40TA5 PO (16:14)
[2024-10-26] MEDS ORDERED: INSLAN SQ (16:14)
[2024-10-26] MEDS: LISINOPRIL 2.5 MG TABLET PO SCH (16:30)
[2024-10-26] MEDS: LIDOCAINE 4% ADH..PATCH TP SCH (16:30)
[2024-10-26] MEDS: ketOROlac 15MG/ML VIAL (15MG/ML) IV ONE (18:00)
[2024-10-26] MEDS: NICOTINE 21 MG/ 24 HR PATCH TD ONE (18:00)
[2024-10-26 20:00] VITALS: BP 123/85; PULSE 86; RESP 22; TEMP 98.6; O2SAT 97
--- NOTE | 2024-10-26 23:44 | HMCSR ---
APPROVED REPORT EXAM: Two-dimensional and M-mode echocardiogram with Doppler and color Doppler. INDICATION ICD: Pericardial effusion Chest Pain 2D Dimensions RVDd4.5 cmLVEF(%)54.7 (>50%)LVED Vol(simp.)154.6 mL IVSd1.2 (0.7-1.1cm)FS(%)29 %LVES Vol(simp.)83.0 mL LVDd5.5 (3.8-5.6cm)LA (2D)4.5 (1.6-4.0cm)LVEF(%, simp.)46 % PWd1.7 (0.7-1.1cm)Ao Root(2D)3.3 (2.0-3.7cm)LA ESV INDEX (BP)23.18 mL/m2 LVDs3.9 (2.5-4.0cm)LVOT diam2.5 (1.8-2.4cm) IVC diam1.5 cm Deformation Strain Apical 4-11.0 % Apical 2-12.0 % Apical 3-11.0 % Global Strain-11.0 % M-Mode Dimensions EPSS0.8 cm LA (MM)4.6 (1.6-4.0cm) Ao Root(MM)3.1 (2.0-3.7cm) Aortic Valve AoV Vmax1.5 m/Oni Peak GR8.8 mmHgLVOT Vmax1.1 m/s AoV VTI0.3 mAo Mean GR4.8 mmHgLVOT VTI0.21 m VIKTORIA (VMAX)3.7 cm2AVA (VTI) 3.7 cm2 Mitral Valve MV E Vmax72.4 cm/sDECEL Hwxu375 ms MV A Lbjn720.8 cm/sP 1/2 T62 ms E/A ratio0.7MVA (PHT)3.5 cm2 TDI E/E' Iaonce07.1 Medial E' Peak V6.00 cm/s Left Ventricle The left ventricle is normal in size. There is global hypokinesis of the left ventricle. Moderate con centric left ventricular hypertrophy. Left ventricle systolic function is mildly depressed, estimated LVEF 45 to 50%. Stage I diastolic dysfunction. Right Ventricle The right ventricle is dilated. The right ventricular systolic function is normal. Atria The left atrium is mildly dilated. The right atrium is dilated. Aortic Valve Aortic valve is trileaflet. No aortic regurgitation is present. There is no aortic valvular stenosis. Mitral Valve The mitral valve is normal in structure and function. Trace mitral regurgitation. There is no mitral valve stenosis. Tricuspid Valve The tricuspid valve is normal in structure and function. Trace tricuspid regurgitation. RVSP is bob l Pulmonic Valve Pulmonic valve is not well visualized. Great Vessels The aortic root is normal in size. The IVC is normal in size and collapses >50% with inspiration. Pericardium No pericardial effusion. Conclusion The left atrium is mildly dilated. The right atrium is dilated. The right ventricle is dilated. Moderate concentric left ventricular hypertrophy. There is global hypokinesis of the left ventricle. Left ventricle systolic function is mildly depressed, estimated LVEF 45 to 50%. Stage I diastolic dysfunction. Trace mitral regurgitation. Trace tricuspid regurgitation. PASP is bob. No pericardial effusion.
[2024-10-27] VITALS: BP 127/88; PULSE 96; RESP 20; TEMP 98.8
[2024-10-27 04:00] VITALS: BP 117/87; PULSE 86; RESP 20; TEMP 98.2
[2024-10-27 05:33] LABS: HEMATOCRIT 46.1 % (42-54); MEAN CORPUSCULAR HEMOGLOBIN 28.5 pg (27.0-33.0); MEAN CORPUSCULAR HGB CONC 32.5 g/dL (32.0-36.0); MEAN CORPUSCULAR VOLUME 87.5 fL (79-99); RED BLOOD CELL COUNT(AUTO) 5.27 MIL/uL (4.50-6.20); WHITE BLOOD COUNT (AUTO) 5.6 K/uL (4.8-10.8)
[2024-10-27 05:53] LABS: PHOSPHORUS 3.1 mg/dL (2.5-4.9); POTASSIUM 4.8 mmol/L (3.5-5.1)
[2024-10-27 08:00] VITALS: O2SAT 96
[2024-10-27 08:03] VITALS: BP 139/94; PULSE 92; RESP 18; TEMP 97.4
[2024-10-27] MEDS ORDERED: AEC81 PO ×2 (08:31→11:07)
[2024-10-27] MEDS ORDERED: LIDO1ADH71 TP (08:31)
[2024-10-27] MEDS: NICOTINE 21 MG/ 24 HR PATCH TD SCH (09:09)
--- NOTE | 2024-10-27 09:16 | PN ---
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 with wire perforation into the adventitia of the vessel, PTCA and stent to the RCA with a [id number] Xience Alpine stent and thrombectomy of distal thrombus LHC on 02/24/2024 revealed a patent RCA stent, a chronically occluded LAD, and severe systolic heart failure and diastolic failure 2D echo on 08/16/2024 with an EF of 45-50% MIGUEL A COPD on home O2 at 3 L Obesity Polysubstance abuse Noncompliance Urine drug screen positive for cocaine on 10/26/2024 Patient clearly describes a pain under the left axilla that he can point to with two fingers, which radiates into the shoulder and somewhat into the left precordium and is exacerbated by pressure, deep inspiration, and body position. In addition he has experienced a burning retrosternal/left precordial discomfort which has been unrelated to physical activity. Patient states in addition to cocaine he was also using alcohol because it was his birthday and he was celebrating. Physical exam shows an obese patient with clear lungs, normal S1 and S2, neurologically intact with no edema. Impression and recommendation: Diabetes is out of control, mostly related to noncompliance and alcohol use. The atypical chest pain is of chest wall origin. The burning discomfort is likely esophageal in etiology. With two troponins normal and a normal BNP and no evidence of active ischemia and no exertional component, when diabetes is controlled the patient can be discharged. I will sign off. Vitals/Labs Vital Signs Date Time Temp Pulse Resp B/P (MAP) Pulse Ox O2 Delivery O2 Flow Rate FiO2 10/27/24 08:03 97.3 92 18 139/94 97 Nasal Cannula 3.0 10/26/24 20:00 21 Laboratory Tests 10/27/24 04:58 Conclusion The left atrium is mildly dilated. The right atrium is dilated. The right ventricle is dilated. Moderate concentric left ventricular hypertrophy. There is global hypokinesis of the left ventricle. Left ventricle systolic function is mildly depressed, estimated LVEF 45 to 50%. Stage I diastolic dysfunction. Trace mitral regurgitation. Trace tricuspid regurgitation. PASP is bob. No pericardial effusion. Medications Current Medications Sodium Chloride 1,000 ml @ 0 mls/hr ONCE ONCE IV Last administered on 10/26/24at 00:27; Start 10/26/24 at 00:30; Stop 10/26/24 at 00:31; Status DC Insulin Human Regular 12 unit ONCE ONCE IV Last administered on 10/26/24at 00:47; Start 10/26/24 at 00:30; Stop 10/26/24 at 00:31; Status DC Aspirin 81 mg DAILY PO Last administered on 10/27/24at 09:08; Start 10/26/24 at 09:00; Stop 11/25/24 at 08:59 Aspirin 324 mg ONCE ONCE PO Last administered on 10/26/24at 01:08; Start 10/26/24 at 01:00; Stop 10/26/24 at 01:01; Status DC Atorvastatin Calcium 40 mg HS PO; Start 10/27/24 at 21:00; Stop 11/26/24 at 20:59 Famotidine 20 mg BID PO Last administered on 10/27/24at 09:08; Start 10/26/24 at 09:00; Stop 11/25/24 at 08:59 Enoxaparin Sodium 40 mg DAILY SQ Last administered on 10/27/24at 09:08; Start 10/26/24 at 09:00; Stop 11/25/24 at 08:59 Acetaminophen 650 mg Q6H PRN PO; Start 10/26/24 at 02:00; Stop 11/25/24 at 01:59 Acetaminophen 650 mg Q6H PRN RC; Start 10/26/24 at 02:00; Stop 11/25/24 at 01:59 Lactulose 20 gm Q6H PRN PO; Start 10/26/24 at 02:00; Stop 11/25/24 at 01:59 Docusate Sodium 100 mg BID PRN PO; Start 10/26/24 at 02:00; Stop 11/25/24 at 01:59 Temazepam 15 mg HS PRN PO; Start 10/26/24 at 02:00; Stop 11/25/24 at 01:59 Ondansetron HCl 4 mg Q6H PRN IVP; Start 10/26/24 at 02:00; Stop 11/25/24 at 01:59 Labetalol HCl 10 mg Q2H PRN IV; Start 10/26/24 at 02:00; Stop 11/25/24 at 01:59 Insulin Human Regular INSULIN SLIDING SCAL... ACHS SQ Last administered on 10/27/24at 05:38; Start 10/26/24 at 07:30; Stop 11/25/24 at 07:29 Dextrose 50 ml AD PRN IV; Start 10/26/24 at 02:30; Stop 11/25/24 at 02:29 Glucagon 1 mg AD PRN IM; Start 10/26/24 at 02:30; Stop 11/25/24 at 02:29 Potassium Chloride 100 ml @ 100 mls/hr AD PRN IV; Start 10/26/24 at 02:30; Stop 11/25/24 at 02:29 Potassium Chloride 20 meq AD PRN PO; Start 10/26/24 at 02:30; Stop 11/25/24 at 02:29 Potassium Chloride 20 meq AD PRN PO; Start 10/26/24 at 02:30; Stop 11/25/24 at 02:29 Magnesium Sulfate 50 ml @ 0 mls/hr PROTOCOL PRN IV; Start 10/26/24 at 02:30; Stop 11/25/24 at 02:29 Nitroglycerin 1 inch Q8H TD Last administered on 10/26/24at 13:39; Start 10/26/24 at 03:00; Stop 10/26/24 at 17:48; Status DC Colchicine 1.2 mg ONCE ONCE PO Last administered on 10/26/24at 05:12; Start 10/26/24 at 03:00; Stop 10/26/24 at 03:01; Status DC Doxycycline Hyclate 250 ml @ 125 mls/hr Q12H IV Last administered on 10/27/24at 09:07; Start 10/26/24 at 08:30; Stop 11/05/24 at 08:29 Nitroglycerin 0.4 mg STK-MED ONCE SL Last administered on 10/26/24at 11:36; Start 10/26/24 at 11:29; Stop 10/26/24 at 11:29; Status DC Clopidogrel Bisulfate 75 mg STK-MED ONCE .ROUTE Last administered on 10/26/24at 11:36; Start 10/26/24 at 11:29; Stop 10/26/24 at 11:30; Status DC Atorvastatin Calcium 40 mg STK-MED ONCE .ROUTE Last administered on 10/26/24at 11:35; Start 10/26/24 at 11:30; Stop 10/26/24 at 11:30; Status DC Atorvastatin Calcium 40 mg ONCE ONCE PO; Start 10/26/24 at 11:30; Stop 10/26/24 at 11:37; Status DC Clopidogrel Bisulfate 75 mg ONCE ONCE PO; Start 10/26/24 at 11:30; Stop 10/26/24 at 11:36; Status DC Nitroglycerin 0.4 mg AD PRN SL; Start 10/26/24 at 11:30; Stop 11/25/24 at 11:29 Lidocaine 1 each DAILY TP Last administered on 10/27/24at 09:09; Start 10/26/24 at 15:00; Stop 11/25/24 at 14:59 Ketorolac Tromethamine 15 mg ONCE ONCE IM; Start 10/26/24 at 15:00; Stop 10/26/24 at 15:01; Status DC Metoprolol Succinate 25 mg DAILY PO; Start 10/26/24 at 15:00; Stop 10/26/24 at 15:41; Status DC Lisinopril 2.5 mg DAILY PO Last administered on 10/27/24at 09:08; Start 10/26/24 at 15:00; Stop 11/25/24 at 14:59 Nicotine 21 mg ONCE ONCE TD Last administered on 10/26/24at 18:00; Start 10/26/24 at 18:00; Stop 10/26/24 at 18:01; Status DC Nicotine 21 mg DAILY TD Last administered on 10/27/24at 09:09; Start 10/27/24 at 09:00; Stop 11/26/24 at 08:59 Ketorolac Tromethamine 15 mg ONCE ONCE IV Last administered on 10/26/24at 18:00; Start 10/26/24 at 18:00; Stop 10/26/24 at 18:01; Status DC ROLAND CHIRINOS MD Oct 27, 2024 09:16
[2024-10-27] MEDS ORDERED: SPIR25TA6 PO (11:07)
[2024-10-27] MEDS ORDERED: DAPA5TAB PO (11:07)
[2024-10-27] MEDS ORDERED: FENO145T PO (11:07)
[2024-10-27] MEDS ORDERED: ATOR40TA69 PO (11:07)
[2024-10-27] MEDS ORDERED: LISI2.5T13 PO (11:07)
[2024-10-27] MEDS ORDERED: INSLAN SQ (11:07)
[2024-10-27] MEDS ORDERED: PANT40TA54 PO (11:07)
[2024-10-27] MEDS ORDERED: FURO40TA5 PO (11:07)
[2024-10-27 11:47] VITALS: BP 102/77; PULSE 94; RESP 18; TEMP 98.5
--- NOTE | 2024-10-27 14:45 | NUR ---
Discharge patient been discharge home, all discharge instructions given to patient, all questions answered, no concerns at this time, patient in good spirit, denies c/o pain or discomfort, no signs of distress.
[2024-10-27 15:14] LABS: HEMOGLOBIN A1C >15.5 % (4.8-5.6)
[2024-10-27] MEDS ORDERED: METF-1151 PO (15:33)
--- NOTE | 2024-10-27 15:35 | DS ---
Discharge Summary Hospital Course Summary: 44-year-old male with a history of CAD s/p cardiac stents x2, morbid obesity, CHF, DM type 2, hypercholesteremia, hypertension who presented to [facility] for evaluation of left anterior chest pain that radiates to the left axilla and left shoulder onset two days ago. The patient stated he was working in his house when he failed the pain. On arrival to the ED the patient reports the pain slightly improved with nitroglycerin. The patient denied any nausea, vomiting, back pain, jaw pain. 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 Ba. The CTA chest: on 08/15/2024 was negative for PE. Impression: Bilateral lung infiltrates and minimal bilateral pleural effusion as well as small pericardial effusion. Echocardiogram on 08/17/2024 LVEF 45-50%. Patient was admitted and cardiology was consulted. A physical exam was done and chest pain was reproducible with manual palpation. Troponins were normal x 2, and a UDS was positive for cocaine. Cardiology evaluated him and cleared from a cardiology standpoint. His diabetes is uncontrolled with an A1C greater than 15.5 which suggests non-compliance with his home medications, PCP will need to adjust his home medications and provide close follow ups and lifestyle modification counselling. He was extensively counselled on the importance of abstaining from further substance abuse, he indicated his understanding. By hospital day 2 he was cleared and discharged back home. . 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 The right atrium is dilated. The right ventricle is dilated. Moderate concentric left ventricular hypertrophy. There is global hypokinesis of the left ventricle. Left ventricle systolic function is mildly depressed, estimated LVEF 45 to 50%. Stage I diastolic dysfunction. Trace mitral regurgitation. Trace tricuspid regurgitation. PASP is bob. No pericardial effusion. CHEST 1VW HISTORY: Chest pain COMPARISON: 08/19/2024 FINDINGS: A frontal projection of the chest was obtained. There are bilateral pulmonary infiltrates suggestive of pulmonary vascular congestion with possible superimposed pneumonitis. The heart is normal in size. Degenerative changes are seen. No evidence of aortic calcification is seen. IMPRESSION: 1. Mild bilateral pulmonary infiltrates are seen may be related to mild pulmonary vascular congestion with possible superimposed pneumonitis. Assessment/Plan: Acute chest pain, POA, acute coronary syndrome, ruled out, troponin negative x2 LVEF 45-50% per echo on 08/17/2024 Pulmonary vascular congestion with superimposed pneumonitis, POA Small pericardial effusion, per CT on Uncontrolled Diabetes mellitus with hyperglycemia last A1C > 15.5 Medication noncompliance Acute dehydration Acute on chronic kidney disease, GFR 84 Uncontrolled hypertension Obesity, BMI 37.3 Chronic problem list: CAD s/p cardiac stents x2, morbid obesity, CHF, DM type 2, hypercholesteremia, hypertension Discharge Instructions: Follow up with PCP in 3-7 days Follow up with cardiology in 7 days Home Medications: Active Scripts Dapagliflozin Propanediol (Farxiga) 5 Mg Tablet, 1 TAB PO DAILY for 30 Days, #30 TAB 0 Refills Prov:WILLIAM BARKER MD 10/27/24 Insulin Glargine,Hum.rec.anlog (Lantus) 100 Unit/Ml Inj, 20 UNITS SQ HS, #30 ML Prov:WILLIAM BARKER MD 10/27/24 Furosemide (Furosemide) 40 Mg Tablet, 40 MG PO DAILY, #30 TAB Prov:WILLIAM BARKER MD 10/27/24 Spironolactone (Spironolactone) 25 Mg Tablet, 1 TAB PO DAILY for 30 Days, #30 TAB 0 Refills Prov:WILLIAM BARKER MD 10/27/24 Lisinopril (Lisinopril) 2.5 Mg Tablet, 2.5 MG PO DAILY for 30 Days, #30 TAB 2 Refills Prov:WILLIAM BARKER MD 10/27/24 Fenofibrate Nanocrystallized (Tricor) 145 Mg Tablet, 145 MG PO DAILY for 30 Days, #30 TAB 2 Refills Prov:WILLIAM BARKER MD 10/27/24 Atorvastatin Calcium (LIPITOR) 40 Mg Tablet, 40 MG PO HS for 30 Days, #30 TAB 2 Refills Prov:WILLIAM BARKER MD 10/27/24 Aspirin (ASPIRIN 81 MG ECTAB) 81 Mg Ectab, 81 MG PO DAILY for 30 Days, #30 TAB.EC 2 Refills Prov:WILLIAM BARKER MD 10/27/24 Pantoprazole Sodium (Pantoprazole Sodium) 40 Mg Tablet.dr, 40 MG PO DAILY, #30 T AB Prov:WILLIAM BARKER MD 10/27/24 Lidocaine (Lidocaine Pain Relief) 4 % Adh..patch, 1 PATCH TP DAILY for 10 Days, #10 PATCH 0 Refills Prov:WILLIAM BARKER MD 10/27/24 Aspirin (ASPIRIN 81 MG ECTAB) 81 Mg Ectab, 81 MG PO DAILY, #30 TAB.EC Prov:WILLIAM BARKER MD 10/27/24 Nitroglycerin (Nitroglycerin) 0.4 Mg Tab.subl, 0.4 MG SL [id number] PRN for chest pain, #30 TAB.SL 1 Refill Prov:CHARLIE AYOUB MD 02/26/24 Albuterol Sulfate (Ventolin Hfa/Proventil Hfa/Proair Hfa) 90 Mcg Puff, 2 PUFF IH Q4H for WHEEZING, #1 INHALER 0 Refills Prov:RUSS AGUILAR MD 09/04/23 Discontinued Reported Medications Insulin Regular, Human (Humulin R) 100 Unit/Ml Vial, 10 UNITS SQ ONCE, VIAL 08/15/24 Nitroglycerin (Nitroglycerin) 0.4 Mg Tab.subl, 0.4 MG SL STAT for chest pain, TAB.SL 06/21/23 Gabapentin (Gabapentin) 400 Mg Capsule, 300 MG PO DAILY, CAP 06/21/23 Fenofibrate Nanocrystallized (Fenofibrate) 145 Mg Tablet, 145 TAB PO DAILY 06/08/23 Discontinued Scripts Metoprolol Succinate (Metoprolol Succinate) 25 Mg Tab.er.24h, 1 TAB PO DAILY for 14 Days, #14 TAB 0 Refills Prov:GEENA OTERO MD 08/19/24 Empagliflozin (Jardiance) 10 Mg Tablet, 10 MG PO DAILY, #14 TAB Prov:GEENA OETRO MD 08/19/24 Furosemide (Lasix 40Mg Tab) 40 Mg Tablet, 40 MG PO ONCE, #14 TAB Prov:GEENA OTERO MD 08/19/24 Insulin Glargine,Hum.rec.anlog (Lantus) 100 Unit/Ml Inj, 20 UNITS SQ HS, #10 ML Prov:GEENA OTERO MD 08/19/24 Spironolactone (Spironolactone) 25 Mg Tablet, 12.5 MG PO DAILY for 30 Days, #30 TAB 2 Refills Prov:CHARLIE AYOUB MD 02/26/24 Metoprolol Tartrate (Lopressor) 25 Mg Tab, 37.5 MG PO BID for 30 Days, #30 TAB 2 Refills Prov:CHARLIE AYOUB MD 02/26/24 Insulin Regular, Human (Humulin R) 100 Unit/Ml Vial, 5 UNIT SQ TIDAC for 30 Days, #30 VIAL 2 Refills Prov:CHARLIE AYOUB MD 02/26/24 Insulin Glargine,Hum.rec.anlog (Lantus) 100 Unit/Ml Inj, 20 UNITS SQ BID@0730,2100 for 30 Days, #30 ML 1 Refill Prov:CHARLIE AYOUB MD 02/26/24 Empagliflozin (Jardiance) 10 Mg Tablet, 10 MG PO DAILY for 30 Days, #30 TAB 2 Refills Prov:CHARLIE AYOUB MD 02/26/24 Benzonatate (Tessalon Perles) 100 Mg Cap, 100 MG PO TID for cough, #21 CAP 0 Refills Prov:RUSS AGUILAR MD 09/04/23 Budesonide/Formoterol Fumarate (Symbicort 160-4.5 Mcg Inhaler) 160 Mcg-4.5 Mcg/Actuation Hfa.aer.ad, 2 PUFF IH BID for 15 Days, #1 INHALER Prov:RUSS AGUILAR MD 09/04/23 Aspirin (Aspirin) 81 Mg Tab.chew, 81 MG PO DAILY for 30 Days, #30 TAB.CHEW Prov:KATYA RAMIREZ MD 10/01/22 New Medications: Dapagliflozin Propanediol (Farxiga) 5 Mg Tablet 1 TAB PO DAILY for 30 Days, #30 TAB 0 Refills Lidocaine (Lidocaine Pain Relief) 4 % Adh..patch 1 PATCH TP DAILY for 10 Days, #10 PATCH 0 Refills Metformin HCl (Metformin HCl ER) 1,000 Mg [id number] 1 TAB PO BID for diabetes for 30 Days, #60 TAB 0 Refills Aspirin (Aspirin 81 Mg Ectab) 81 Mg Ectab 81 MG PO DAILY, #30 TAB.EC Continued Medications: Albuterol Sulfate (Ventolin Hfa/Proventil Hfa/Proair Hfa) 90 Mcg Puff 2 PUFF IH Q4H for WHEEZING, #1 INHALER 0 Refills Aspirin (Aspirin 81 Mg Ectab) 81 Mg Ectab 81 MG PO DAILY for 30 Days, #30 TAB.EC 2 Refills (This prescription has been renewed) Atorvastatin Calcium (Lipitor) 40 Mg Tablet 40 MG PO HS for 30 Days, #30 TAB 2 Refills (This prescription has been renewed) Fenofibrate Nanocrystallized (Tricor) 145 Mg Tablet 145 MG PO DAILY for 30 Days, #30 TAB 2 Refills (This prescription has been renewed) Furosemide (Furosemide) 40 Mg Tablet 40 MG PO DAILY, #30 TAB (This prescription has been renewed) Insulin Glargine,Hum.rec.anlog (Lantus) 100 Unit/Ml Inj 20 UNITS SQ HS, #30 ML (This prescription has been renewed) Lisinopril (Lisinopril) 2.5 Mg Tablet 2.5 MG PO DAILY for 30 Days, #30 TAB 2 Refills (This prescription has been renewed) Nitroglycerin (Nitroglycerin) 0.4 Mg Tab.subl 0.4 MG SL [id number] PRN for chest pain, #30 TAB.SL 1 Refill Pantoprazole Sodium (Pantoprazole Sodium) 40 Mg Tablet.dr 40 MG PO DAILY, #30 TAB (This prescription has been renewed) Spironolactone (Spironolactone) 25 Mg Tablet 1 TAB PO DAILY for 30 Days, #30 TAB 0 Refills (This prescription has been renewed) Discontinued Medications: Empagliflozin (Jardiance) 10 Mg Tablet 10 MG PO DAILY, #14 TAB Metoprolol Succinate (Metoprolol Succinate) 25 Mg Tab.er.24h 1 TAB PO DAILY for 14 Days, #14 TAB 0 Refills Time spent arranging discharge: 31-60 minutes WILLIAM BARKER MD Oct 27, 2024 15:35
[2024-10-27] MEDS ORDERED: atorVAStatin 40 MG TABLET PO SCH (21:00)
== END 2024-10-27 14:45 | disposition home or self-care (01) ==
LOC: EDH 23:20 → EDHIP 10-26 00:36 → INTOOBSV 10-26 00:36 → 4AH 10-26 15:35
PROVIDERS: ADMIT Internal Medicine; ATTEND Internal Medicine
DX: J98.4 Other disorders of lung (principal); I25.10 Atherosclerotic heart disease of native coronary artery without angina pectoris; E11.65 Type 2 diabetes mellitus with hyperglycemia; E86.0 Dehydration; N17.9 Acute kidney failure, unspecified; I13.0 Hypertensive heart and chronic kidney disease with heart failure and stage 1 through stage 4 chronic kidney disease, or unspecified chronic kidney disease; E11.22 Type 2 diabetes mellitus with diabetic chronic kidney disease; N18.9 Chronic kidney disease, unspecified; I50.22 Chronic systolic (congestive) heart failure; R18.8 Other ascites; E66.01 Morbid (severe) obesity due to excess calories; I44.0 Atrioventricular block, first degree; J44.9 Chronic obstructive pulmonary disease, unspecified; G47.33 Obstructive sleep apnea (adult) (pediatric); F14.10 Cocaine abuse, uncomplicated; E78.00 Pure hypercholesterolemia, unspecified; Z91.148 Patient's other noncompliance with medication regimen for other reason; Z79.4 Long term (current) use of insulin; Z79.899 Other long term (current) drug therapy; Z68.37 Body mass index [BMI] 37.0-37.9, adult; Z79.82 Long term (current) use of aspirin; Z95.5 Presence of coronary angioplasty implant and graft
CPT/HCPCS: 99285; 82550; 84484 ×2; 80048 ×2; 83880; 85025; 36415 ×2; 71045; 93005 ×2; 96372 ×2; 96361; 96365; 96366 ×3; 96375; 83036; 84443; 83735 ×2; 84100 ×2; 80053; 80305; 85027 ×2; 85378; 82948 ×8; 82010; 81001; 93306; 93356; 76376; G0378 ×21; J7030; J3490 ×3; J1650 ×2; J1885; J1815 ×8

== ENCOUNTER 2024-11-20 11:00 | Inpatient (IN) | payer OTHER ==
[2024-11-20] VITALS (7 sets, daily range): BP systolic 126–135; BP diastolic 53–75; PULSE 82–89; RESP 16–20; TEMP 98–98.7; O2SAT 95–98
[~2024-11-20] VITALS: Ht 180.3 cm; Wt 114.5 kg
[~2024-11-20 11:00] MED LIST changes: -ASPI-1197 PO; -BENZ-39 PO; -BUDE10.2 IH; +DAPA5TAB PO; -EMPA10TA PO; -FENO145T26 PO; +FURO40TA5 PO; -FURO40TA7 PO; -GABA-534 PO; -INSU100V3 SQ; +LIDO1ADH71 TP; +METF-1151 PO; -METO-408 PO; -METO25 PO
--- NOTE | 2024-11-20 11:13 | ERN ---
General Chief Complaint: Chest Pain Stated Complaint: CP Time Seen by MD: 11:01 History of Present Illness Initial Comments 44-year-old male, multiple medical comorbidities including MIs with stents, CHF, COPD, diabetes, hypertension, presents for chest pain. Brought in by EMS. 30 minutes prior to arrival, patient was at rest, had episode of left-sided chest pain described as a pressure. He felt dizzy. He felt dyspneic. He reports that he was sweating. On arrival EMS found the patient was stable vital signs. They administered 0.4 mg sublingual nitroglycerin and 324 mg of p.o. aspirin. Patient reports that his symptoms have gone away. He still reports feeling a bit dizzy, but no longer has chest pain or dyspnea. He denies any recent fevers cough congestion vomiting swelling or other abnormalities. He has been compliant with his medications. 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 Ba, PCP Anabell Jacinto Allergies: Coded Allergies: No Known Drug Allergies (Unverified Allergy, Unknown, 05/09/18) Unable to Assess (Verified Allergy, Unknown, 05/09/18) Home Meds Active Scripts Metformin HCl (Metformin HCl ER) 1,000 Mg [id number], 1 TAB PO BID for diabetes for 30 Days, #60 TAB 0 Refills Prov:WILLIAM BARKER MD 10/27/24 Dapagliflozin Propanediol (Farxiga) 5 Mg Tablet, 1 TAB PO DAILY for 30 Days, #30 TAB 0 Refills Prov:WILLIAM BARKER MD 10/27/24 Insulin Glargine,Hum.rec.anlog (Lantus) 100 Unit/Ml Inj, 20 UNITS SQ HS, #30 ML Prov:WILLIAM BARKER MD 10/27/24 Furosemide (Furosemide) 40 Mg Tablet, 40 MG PO DAILY, #30 TAB Prov:WILLIAM BARKER MD 10/27/24 Spironolactone (Spironolactone) 25 Mg Tablet, 1 TAB PO DAILY for 30 Days, #30 TAB 0 Refills Prov:WILLIAM BARKER MD 10/27/24 Lisinopril (Lisinopril) 2.5 Mg Tablet, 2.5 MG PO DAILY for 30 Days, #30 TAB 2 Refills Prov:WILLIAM BARKER MD 10/27/24 Fenofibrate Nanocrystallized (Tricor) 145 Mg Tablet, 145 MG PO DAILY for 30 Days, #30 TAB 2 Refills Prov:WILLIAM BARKER MD 10/27/24 Atorvastatin Calcium (LIPITOR) 40 Mg Tablet, 40 MG PO HS for 30 Days, #30 TAB 2 Refills Prov:WILLIAM BARKER MD 10/27/24 Aspirin (ASPIRIN 81 MG ECTAB) 81 Mg Ectab, 81 MG PO DAILY for 30 Days, #30 TAB.EC 2 Refills Prov:WILLIAM BARKER MD 10/27/24 Pantoprazole Sodium (Pantoprazole Sodium) 40 Mg Tablet.dr, 40 MG PO DAILY, #30 TAB Prov:WILLIAM BARKER MD 10/27/24 Lidocaine (Lidocaine Pain Relief) 4 % Adh..patch, 1 PATCH TP DAILY for 10 Days, #10 PATCH 0 Refills Prov:WILLIAM BARKER MD 10/27/24 Aspirin (ASPIRIN 81 MG ECTAB) 81 Mg Ectab, 81 MG PO DAILY, #30 TAB.EC Prov:WILLIAM BARKER MD 10/27/24 Nitroglycerin (Nitroglycerin) 0.4 Mg Tab.subl, 0.4 MG SL [id number] PRN for chest pain, #30 TAB.SL 1 Refill Prov:CHARLIE AYOUB MD 02/26/24 Albuterol Sulfate (Ventolin Hfa/Proventil Hfa/Proair Hfa) 90 Mcg Puff, 2 PUFF IH Q4H for WHEEZING, #1 INHALER 0 Refills Prov:RUSS AGUILAR MD 09/04/23 Past Medical History Past Medical History: Diabetes-Type II, High Cholesterol, Heart Disease, Hypertension Medical History Other: HEART STENTS X2 Past Surgical History: Other Surgical History Other: CARDIAC STENTS. Social History Social History: Smokers, Drugs, Lives with family ROS Dictation CONSTITUTIONAL: No chills, no fever, no weakness, no diaphoresis, no malaise. HEAD/FACE: No signs of trauma. EENT: No eye pain, no blurred vision, no tearing, no double vision, no ear pain, no ear discharge, no nose pain, no nasal congestion, no throat pain, no throat swelling, no mouth pain. RESPIRATORY: No cough, no orthopnea, no SOB, no stridor, no wheezing. CARDIOVASCULAR: Chest pain and dizziness GASTROINTESTINAL/ABDOMINAL: No abdominal pain, no constipation, no diarrhea, no nausea, no vomiting. GENITOURINARY: No abnormal discharge, no dysuria, no frequent urination, no hematuria. No complaints of pain in the genitals. MUSCULOSKELETAL: No back pain, no gout, no joint pain, no joint swelling, no muscle pain, no muscle stiffness, no neck pain. INTEGUMENTARY: No change in color, no change in hair/nails, no dryness, no lesion, no lumps, no rash. NEUROLOGICAL/PSYCH: No anxiety, not depressed, no emotional problem, no headache, no numbness, no pre-existing deficit, no history of seizures, no tremors, no weakness. HEMATOLOGIC/LYMPHATIC: Not anemic, no history of blood clots, no apparent bleeding, no bruising, glands not swollen. All Systems Negative, Except as Noted. Physical Exam Physical Exam Dictation VITAL SIGNS: Reviewed. GENERAL APPEARANCE: Alert, oriented x3, no acute distress HEAD AND FACE: Non-traumatic. EYES: PERRL, pink conjunctivas, eyelid no trauma, anterior chamber clear. EARS: Pinnas intact and no signs of trauma or erythema. Ear canals clear and no discharge. TMs no erythema. NOSE: No discharge, no bleeding. OROPHARYNX: Mouth normal, teeth no caries, tongue pink. Pharynx clear, no erythema. Tonsils no exudates, no abscesses noted. Mucous membrane moist. NECK: Supple, non-tender, no thyromegaly, no masses, no JVD, no bruits. BREAST: Deferred. CHEST: No tenderness, no crepitus, no paradoxical movement, no retractions. LUNGS: Clear, well-ventilated, symmetric, no rales, no wheezing, no rhonchi, no stridor, good breath sounds bilaterally. HEART: Regular rate, regular rhythm, no murmur, no gallops. VASCULAR: No peripheral edema. ABDOMEN: Soft, positive bowel sounds, nondistended, no guarding, nontender, no rebound, no masses no hepatomegaly, no splenomegaly, no Hamm's sign, no hernias. RECTAL: Deferred. GENITAL: Deferred. NEUROLOGICAL: Normal speech, gross motor function intact, gross sensory function intact. MUSCULOSKELETAL: Neck nontender, full range of motion, back nontender, full range of motion. EXTREMITIES: Nontender, full range of motion. SKIN: Color pink, dry, no turgor, no rash, no lacerations, no abrasions, no contusions. LYMPHATICS: Deferred. Results Laboratory and Microbiology Lab and Micro Result Laboratory Tests Test 11/20/24 11:48 White Blood Count 7.7 K/uL (4.8-10.8) Red Blood Count 5.81 MIL/uL (4.50-6.20) Hemoglobin 16.4 g/dL (14.0-18.0) Hematocrit 49.4 % (42-54) Mean Corpuscular Volume 85.0 fL (79-99) Mean Corpuscular Hemoglobin 28.2 pg (27.0-33.0) Mean Corpuscular Hemoglobin Concent 33.2 g/dL (32.0-36.0) Red Cell Distribution Width 13.7 % (11.0-15.5) Platelet Count 366 K/uL (130-400) Mean Platelet Volume 8.8 fL (7.5-10.5) Immature Granulocyte % (Auto) 0.4 % (0-1) Neutrophils (%) (Auto) 72.6 % (40.0-77.0) Lymphocytes (%) (Auto) 19.1 % (21.0-51.0) L Monocytes (%) (Auto) 6.5 % (3.0-13.0) Eosinophils (%) (Auto) 1.0 % (0.0-8.0) Basophils (%) (Auto) 0.4 % (0.0-5.0) Neutrophils # (Auto) 5.6 K/uL (1.8-7.7) Lymphocytes # (Auto) 1.5 K/uL (1.0-4.8) Monocytes # (Auto) 0.5 K/uL (0.1-1.0) Eosinophils # (Auto) 0.08 K/uL (0.00-0.70) Basophils # (Auto) 0.03 K/uL (0.00-0.20) Absolute Immature Granulocyte (auto 0.03 K/uL (0-1) Nucleated Red Blood Cells 0.0 % (0.0-0.19) Prothrombin Time 9.7 SEC (9.6-11.6) Prothromb Time International Ratio <= 0.93 (0.85-1.15) Activated Partial Thromboplast Time 24.2 SEC (26.3-35.5) L Sodium Level 134 mmol/L (136-145) L Potassium Level 4.5 mmol/L (3.5-5.1) Chloride Level 94 mmol/L (101-111) L Carbon Dioxide Level 35 mmol/L (21-32) H Blood Urea Nitrogen 33 mg/dL (7-18) H Creatinine 1.7 mg/dL (0.5-1.3) H Glomerular Filtration Rate Calc 50 mL/min (>90) Random Glucose 358 mg/dL (70-105) H Total Calcium 9.2 mg/dL (8.5-10.1) Troponin I High Sensitivity 17 ng/L (4-75) B-Type Natriuretic Peptide 33 pg/mL (0-100) Urine Opiates Screen NEGATIVE (NEGATIVE) Urine Barbiturates Screen NEGATIVE (NEGATIVE) Urine Phencyclidine Screen NEGATIVE (NEGATIVE) Urine Amphetamines Screen NEGATIVE (NEGATIVE) Urine Benzodiazepines Screen NEGATIVE (NEGATIVE) Urine Cocaine Screen POSITIVE (NEGATIVE) H Urine Marijuana (THC) Screen NEGATIVE (NEGATIVE) Serum Alcohol < 3 mg/dL (0-10) MDM CC: Chest pain Historian: Patient Comorbidities: Cardiac stents, diabetes, high cholesterol, CAD, hypertension, COPD, CHF Limitations by social determinants of health: None Differential diagnosis: ACS, cardiac disease, COPD, CHF exacerbation, other. Treatment prior to arrival: Nitroglycerin and an aspirin Vital signs: stable, remained stable here in the ER Labs (independently interpreted by me ): CBC is normal. Coags are normal. The metabolic panel shows an ALEXA creatinine 1.7 at baseline it is one. Also hyperglycemia at 3:58 a.m. no signs of DKA. Troponin and BNP. Normal. Tox screen positive for cocaine. Chest x-ray (independently interpreted by me): No focal infiltrates cardiomegaly or pleural effusions. Plan: We will admit for high-risk chest pain. Heart score of five. He did have recent stress test which was unremarkable. I suspect it may be cocaine related, but we will trend the troponins and admit for observation. Patient was agreeable. Consultation: hospitalist for admisison ED Course Orders Procedure Category Date Status Time Cbc With Differential LAB 11/20/24 Complete 11:02 Prothrombin Time With LAB 11/20/24 Complete INR 11:02 B-Type Natriuretic LAB 11/20/24 Complete Peptide 11:02 Chest 1vw RAD 11/20/24 Resulted 11:02 12 Lead Ekg Tracing- EKG 11/20/24 Complete Technical 11:02 Troponin I High LAB 11/20/24 Complete Sensitivity 11:02 Partial LAB 11/20/24 Complete Thromboplastin Time 11:02 Basic Metabolic Panel LAB 11/20/24 Complete 11:02 Alcohol, Blood LAB 11/20/24 Complete 11:15 Drug Screen Urine LAB 11/20/24 Complete 11:15 Lactated Ringers PHA 11/20/24 Complete 1000ml (Lactated 12:30 Troponin I High LAB 11/20/24 Logged Sensitivity 12:35 Current Medications Medications (Trade) Dose Ordered Sig/Rose Marie Route PRN Reason Start Time Stop Time Status Last Admin Dose Admin Lactated Ringer's 1,000 ml @ 0 mls/hr ONCE ONCE IV 11/20/24 12:30 11/20/24 12:31 DC Vital Signs Date Time Temp Pulse Resp B/P (MAP) Pulse Ox O2 Delivery O2 Flow Rate FiO2 11/20/24 11:02 99.1 95 15 101/69 96 Room Air 0 DX & DISP Disposition: Inpatient Departure Impression: Primary Impression: Chest pain with high risk for cardiac etiology Additional Impressions: Cocaine abuse, Hyperglycemia due to diabetes mellitus, ALEXA (acute kidney injury) Critical Time: 30 minutes (Critical Care Procedure NoteAuthorized and Performed by: meTotal critical care time: Approximately 36 minutesDue to a high probability of clinically significant, life threatening deterioration, the patient required my highest level of preparedness to intervene emergently and I personally spent this critical care time directly and personally managing the patient. This critical care time included obtaining a history; examining the patient; pulse oximetry; ordering and review of studies; arranging urgent treatment with development of a management plan; evaluation of patient's response to treatment; frequent reassessment; and, discussions with other providers.This critical care time was performed to assess and manage the high probability of imminent, life-threatening deterioration that could result in multi-organ failure. It was exclusive of separately billable procedures and treating other patients and teaching time.Please see MDM section and the rest of the note for further information on patient assessment and treatment.) Condition: Stable Referrals: JACINTO,ANABELL (PCP) DEBO HEATH DO Nov 20, 2024 11:13
--- NOTE | 2024-11-20 11:23 | EKG ---
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1980 Requested By: DEBO HEATH Order Number: [id number] Reading MD: Luciano Ba Measurements Intervals [place] Rate: 97 P: 67 NV: 212 QRS: 111 QRSD: 115 T: 119 QT: 373 QTc: 474 Interpretive Statements Sinus rhythm Prolonged NV interval Nonspecific intraventricular conduction delay Nonspecific T abnormalities, lateral leads Compared to ECG 10/26/2024 11:41:52 First degree AV block now present Intraventricular conduction delay now present Poor R-wave progression no longer present T-wave abnormality still present Electronically Signed On 11-21-2024 11:39:52 CDT by Luciano Ba Please click the below link to view image of tracing.
--- NOTE | 2024-11-20 11:31 | HMCIMG ---
Exam Type: CHEST 1VW Clinical Information: chest pain Comparison: None Findings: The lungs are clear of infiltrates. The heart is normal in size. The bony and soft tissue structures of the chest are unremarkable. Impression: Clear lungs.
[2024-11-20 12:06] LABS: BASOPHILS # (AUTO) 0.03 K/uL (0.00-0.20); BASOPHILS % (AUTO) 0.4 % (0.0-5.0); EOSINOPHILS # (AUTO) 0.08 K/uL (0.00-0.70); HEMATOCRIT 49.4 % (42-54); IMMATURE GRANULOCYTE ABSOLUTE 0.03 K/uL (0-1); LYMPHOCYTES # (AUTO) 1.5 K/uL (1.0-4.8); LYMPHOCYTES % (AUTO) 19.1 % (21.0-51.0); MEAN CORPUSCULAR HEMOGLOBIN 28.2 pg (27.0-33.0); MEAN CORPUSCULAR HGB CONC 33.2 g/dL (32.0-36.0); MONOCYTES # (AUTO) 0.5 K/uL (0.1-1.0); MONOCYTES % (AUTO) 6.5 % (3.0-13.0); NEUTROPHILS # (AUTO) 5.6 K/uL (1.8-7.7); NEUTROPHILS % (AUTO) 72.6 % (40.0-77.0); PLATELET COUNT (AUTO) 366 K/uL (130-400); RED BLOOD CELL COUNT(AUTO) 5.81 MIL/uL (4.50-6.20); RED CELL DISTRIBUTION WIDTH 13.7 % (11.0-15.5); WHITE BLOOD COUNT (AUTO) 7.7 K/uL (4.8-10.8)
[2024-11-20 12:14] LABS: INR <= 0.93 (0.85-1.15); PROTHROMBIN TIME 9.7 SEC (9.6-11.6)
[2024-11-20 12:15] LABS: CREATININE 1.7 mg/dL (0.5-1.3); PARTIAL THROMBOPLASTIN TIME 24.2 SEC (26.3-35.5); POTASSIUM 4.5 mmol/L (3.5-5.1)
[2024-11-20 12:20] LABS: AMPHET/METH SCREEN,URINE NEGATIVE (NEGATIVE); BARBITURATE SCREEN, URINE NEGATIVE (NEGATIVE); BENZODIAZEPINES SCREEN,URINE NEGATIVE (NEGATIVE); CANNABINOID SCREEN,URINE NEGATIVE (NEGATIVE); COCAINE SCREEN,URINE POSITIVE (NEGATIVE); OPIATE SCREEN,URINE NEGATIVE (NEGATIVE); PHENCYCLIDINE SCREEN,URINE NEGATIVE (NEGATIVE)
[2024-11-20 12:31] LABS: B-TYPE NATRIURETIC PEPTIDE 33 pg/mL (0-100)
[2024-11-20] MEDS: LACTATED RINGERS 1000ML 1,000 ML IV ONE (13:25)
[2024-11-20] MEDS ORDERED: morPHINE 2 MG SYG IVP PRN (13:30)
[2024-11-20] MEDS ORDERED: acetaMINOPHEN 325 MG TAB PO PRN (13:30)
[2024-11-20] MEDS ORDERED: NITROGLYCERIN 0.4 MG SL TAB SL PRN (13:30)
[2024-11-20] MEDS ORDERED: ondanSETRON 4MG INJ IVP PRN (13:30)
[2024-11-20] MEDS: INSULIN humuLIN R 100 UNIT/ML 3ML SQ SCH ×2 (13:34→21:00)
[2024-11-20] MEDS: ASPIRIN 81MG CHEW TAB PO SCH (13:36)
[2024-11-20] MEDS: PANTOPrazole 40 MG TAB DR PO SCH (13:36)
[2024-11-20] MEDS ORDERED: METO-408 PO (13:44)
[2024-11-20] MEDS: INSULIN humuLIN R 100 UNIT/ML 3ML ONE (13:45)
[2024-11-20 14:08] LABS: ALBUMIN 3.5 g/dL (3.5-5.0); BILIRUBIN,DIRECT 0.1 mg/dL (0.0-0.3); BILIRUBIN,TOTAL 0.4 mg/dL (0.2-1.0); TOTAL PROTEIN, SERUM 6.9 g/dL (6.0-8.3)
--- NOTE | 2024-11-20 15:36 | NUR ---
CARDIOLOGY AND ENDOCRINOLOGY CONSULTS DONE BY DR. CANTU
[2024-11-20] MEDS ORDERED: IpraTROPium 0.5 MG/2.5 ML INH IH PRN (16:00)
--- NOTE | 2024-11-20 16:02 | NUR ---
DCP: HOME Pt lives with his common law of 28yrs Abbie Nagel [phone]. 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 Pt states he remains independent, requires no assist with ADLS, no DME or in home care services. PCP is Paulina Jacinto and he uses [facility] for rx. DCP is home, pt denies need for SNF. Sw assisted with MPOA as requested. Copy placed in chart. Original given to
--- NOTE | 2024-11-20 16:06 | HP ---
[facility] HISTORY AND PHYSICAL Date of Service: Nov 20, 2024 Time of Service: 15:54 HISTORY OF PRESENT ILLNESS: Date of service: 11/20/2024, patient was seen in ER room 12 44-year-old male with multiple cardiac comorbidities including hypertension, hyperlipidemia, type 2 diabetes mellitus, coronary artery disease, prior history of inferior wall VA in 2014,, history of NSTEMI in 2018 which revealed 100% SOCIAL MEDIA STRATEGIST of the LAD with PTCA and stent to the RCA and thrombectomy of distal thrombus,, left heart catheterization on 01/2024 which revealed patent RCA stent and chronically occluded LAD with underlying history of severe cardiomyopathy, MIGUEL A, COPD, history of recurrent cocaine use, poorly controlled type 2 diabetes mellitus who presented to the ER for further evaluation of acute onset of chest pain today. Patient states that he had [id number] left-sided chest pain with associated radiation to the left shoulder and left arm that lasted for about 30 minutes. Symptoms were accompanied by diaphoresis, dizziness and symptoms improved prior to coming to the ER. Patient received 0.4 mg of sublingual nitroglycerin as well as 324 mg of aspirin. Denies any fevers, chills or abdominal pain. He was last admitted in [facility] [facility] on 10/26/2024 and discharged from the facility on 10/27/2024. Patient had presented with chest pain as well and pain was deemed to be musculoskeletal. On presentation to the hospital, patient was noted to be afebrile with T-max of 99.1 F and hemodynamically stable. Labs on presentation showed WBC count of 7700, hemoglobin of 16.4, platelet count of 275236. BMP showed sodium of 134, potassium 4.5, BUN of 33, creatinine of 1.7, blood glucose of 358, cardiac troponin was noted to be negative at 17. Chest x-ray showed no acute infiltrates. Given underlying multiple cardiac history, patient will be admitted to rule out active ACS. Consultation with Cardiology will be requested, patient has a history of very poorly controlled diabetes with A1c close to 15 earlier this month. Patient to continue with basal Lantus and we will have endocrinology follow this patient. We will monitor renal function closely as well. REVIEW OF SYSTEMS CONSTITUTIONAL: Denies fevers, chills, or night sweats. No unintentional weight loss reported. NEUROLOGICAL: Denies headache, amaurosis fugax, motor weakness, sensory deficit, vertigo/spinning sensation, gait abnormalities, or tremors. ENT: No hearing loss, otalgia, otorrhea, rhinitis, rhinorrhea, hoarseness, or sore throat. CARDIOVASCULAR: Patient reports having acute onset of chest pain today with associated radiation to left shoulder and left arm with diaphoresis PULMONARY: Denies any shortness of breath, cough, phlegm/sputum, hemoptysis, pleuritic chest pain. SLEEP: Denies morning headaches, daytime somnolence or napping. Denies difficulty falling asleep, staying asleep, waking from sleep. Denies knowledge of snoring. GASTROINTESTINAL: Denies any type of dysphagia to either liquids or solids. Denies nausea, vomiting, pyrosis, early satiety, abdominal pain, diarrhea, constipation, or changes in stool consistency or caliber. Denies coffee-ground emesis, hematemesis, hematochezia, or melanotic stools. GENITOURINARY: Denies frequency, urgency, nocturia, hematuria or incontinence (Storage/Irritative symptoms.) Low urinary stream, straining to void, urinary intermittency or hesitancy, splitting of the voiding stream, terminal dribbling. ENDOCRINOLOGIC: Denies polyuria, polydipsia, polyphagia or heat/cold intolerances. HEMATOLOGIC: Denies thrombophilia/previous clots, or coagulopathy/bleeding disorders. ONCOLOGIC: Denies personal history of malignancy. DERMATOLOGIC: Denies rashes or pruritus. PSYCHIATRIC: Denies any suicidal or homicidal ideation. Denies hallucinations. PAST MEDICAL HISTORY: Hypertension, hyperlipidemia, history of ischemic cardiomyopathy, coronary artery disease, prior history of STEMI in 2013, history of NSTEMI in 2018, medical noncompliance, poorly controlled type 2 diabetes mellitus, COPD, obstructive sleep apnea PAST SURGICAL HISTORY: History of multiple cardiac catheterizations previously in 2013, 2017, and 2023 PAST SOCIAL HISTORY: Smokes about half a pack a day for about 20 years, denies significant alcohol use, reports having used cocaine two days ago FAMILY HISTORY: Reports family history of heart disease Coded Allergies: No Known Drug Allergies (Unverified Allergy, Unknown, 05/09/18) Unable to Assess (Verified Allergy, Unknown, 05/09/18) PHYSICAL EXAM GENERAL APPEARANCE: The patient is awake, alert, and oriented, in no acute cardiopulmonary distress. NEUROLOGICAL: Cranial nerves II-XII grossly intact. Motor is 5/5 in bilateral upper and lower extremities proximal to distal. No sensory deficits. HEENT: Face is symmetric. Pupils are equal and reactive. Extraocular movements are intact. NECK: Supple. No JVD. No thyromegaly. No submental, submandibular, pre- /postauricular, occipital or supraclavicular lymphadenopathy. CHEST: Normal chest expansion. No Telemetry. LUNGS: Minimal crackles noted of bilateral lung bases CARDIOVASCULAR: Regular. S1 and S2 normal. No appreciable rubs, murmurs or gallops. ABDOMEN: Soft, nontender, and nondistended. There is no rebound, voluntary guarding, or rigidity. : Deferred. No [place]. EXTREMITIES: Non-edematous and not cyanotic. No clubbing. Good capillary refill. SKIN: No skin breakdown. Vital Sign (Last 24 Hours) 11/20/24 11/20/24 11:02 13:26 Temp 99.1 Pulse 84 Resp 18 B/P (MAP) 99/72 Pulse Ox 96 O2 Delivery Room Air* O2 Flow Rate 0 FiO2 21 LABS: Laboratory: Test 11/20/24 12:55 11/20/24 11:48 Range/Units Troponin I High Sensitivity 18 4-75 ng/L White Blood Count 7.7 4.8-10.8 K/uL Red Blood Count 5.81 4.50-6.20 MIL/uL Hemoglobin 16.4 14.0-18.0 g/dL Hematocrit 49.4 42-54 % Mean Corpuscular Volume 85.0 79-99 fL Mean Corpuscular Hemoglobin 28.2 27.0-33.0 pg Mean Corpuscular Hemoglobin Concent 33.2 32.0-36.0 g/dL Red Cell Distribution Width 13.7 11.0-15.5 % Platelet Count 366 130-400 K/uL Mean Platelet Volume 8.8 7.5-10.5 fL Immature Granulocyte % (Auto) 0.4 0-1 % Neutrophils (%) (Auto) 72.6 40.0-77.0 % Lymphocytes (%) (Auto) 19.1 L 21.0-51.0 % Monocytes (%) (Auto) 6.5 3.0-13.0 % Eosinophils (%) (Auto) 1.0 0.0-8.0 % Basophils (%) (Auto) 0.4 0.0-5.0 % Neutrophils # (Auto) 5.6 1.8-7.7 K/uL Lymphocytes # (Auto) 1.5 1.0-4.8 K/uL Monocytes # (Auto) 0.5 0.1-1.0 K/uL Eosinophils # (Auto) 0.08 0.00-0.70 K/uL Basophils # (Auto) 0.03 0.00-0.20 K/uL Absolute Immature Granulocyte (auto 0.03 0-1 K/uL Nucleated Red Blood Cells 0.0 0.0-0.19 % Erythrocyte Sedimentation Rate 13 0-15 MM/HR Prothrombin Time 9.7 9.6-11.6 SEC Prothromb Time International Ratio <= 0.93 0.85-1.15 Activated Partial Thromboplast Time 24.2 L 26.3-35.5 SEC Sodium Level 134 L 136-145 mmol/L Potassium Level 4.5 3.5-5.1 mmol/L Chloride Level 94 L 101-111 mmol/L Carbon Dioxide Level 35 H 21-32 mmol/L Blood Urea Nitrogen 33 H 7-18 mg/dL Creatinine 1.7 H 0.5-1.3 mg/dL Glomerular Filtration Rate Calc 50 >90 mL/min Random Glucose 358 H 70-105 mg/dL Total Calcium 9.2 8.5-10.1 mg/dL Total Bilirubin 0.4 0.2-1.0 mg/dL Direct Bilirubin 0.1 0.0-0.3 mg/dL Aspartate Amino Transf (AST/SGOT) 12 10-37 U/L Alanine Aminotransferase (ALT/SGPT) 20 12-78 U/L Alkaline Phosphatase 105 50-136 U/L C-Reactive Protein, Quantitative 11.40 H 0.5-3.0 mg/L B-Type Natriuretic Peptide 33 0-100 pg/mL Total Protein 6.9 6.0-8.3 g/dL Albumin 3.5 3.5-5.0 g/dL Triglycerides Level 583 H 30-200 mg/dL Cholesterol Level 183 # <200 mg/dL LDL Cholesterol 84 0-99 mg/dL HDL Cholesterol 27 L 29-71 mg/dL Procalcitonin < 0.05 L 0.05-0.5 ng/mL Urine Opiates Screen NEGATIVE NEGATIVE Urine Barbiturates Screen NEGATIVE NEGATIVE Urine Phencyclidine Screen NEGATIVE NEGATIVE Urine Amphetamines Screen NEGATIVE NEGATIVE Urine Benzodiazepines Screen NEGATIVE NEGATIVE Urine Cocaine Screen POSITIVE H NEGATIVE Urine Marijuana (THC) Screen NEGATIVE NEGATIVE Serum Alcohol < 3 0-10 mg/dL Current Medications Medications (Trade) Dose Ordered Sig/Rose Marie Route PRN Reason Start Time Stop Time Status Last Admin Dose Admin Acetaminophen (TYLenol 325MG TAB) 650 mg Q6H PRN PO MILD PAIN (1-3) 11/20/24 13:30 12/20/24 13:29 Aspirin (Aspirin 81mg Chew Tab) 81 mg DAILY PO 11/20/24 13:30 12/20/24 13:29 11/20/24 13:36 81 MG Atorvastatin Calcium (LIPItor 40MG) 40 mg HS PO 11/20/24 21:00 12/20/24 20:59 Fenofibrate (Tricor) 145 mg DAILY PO 11/21/24 09:00 12/21/24 08:59 Furosemide (LASix 40MG TAB) 40 mg DAILY PO 11/21/24 09:00 12/21/24 08:59 Home Med (Home Medication) (Dapagliflozin Propanediol (Farxiga... DAILY PO 11/21/24 09:00 12/21/24 08:59 Insulin Glargine (LANtus 100 UNITS/ML 10 ML VIAL) 20 units HS SQ 11/20/24 21:00 12/20/24 20:59 Insulin Human Regular (humuLIN R 100 UNIT/ML 3ML) INSULIN SLIDING SCAL... ACHS SQ 11/20/24 16:30 12/20/24 16:29 11/20/24 13:34 8 UNIT Lisinopril (Prinivil 2.5mg) 2.5 mg DAILY PO 11/21/24 09:00 12/21/24 08:59 Morphine Sulfate (morPHINE 2MG SYG) 2 mg Q4H PRN IVP SEVERE PAIN (7-10) 11/20/24 13:30 11/27/24 13:29 Nitroglycerin (Nitrostat) 0.4 mg AD PRN SL CHEST PAIN 11/20/24 13:30 12/20/24 13:29 Ondansetron HCl (zoFRAN 4MG INJ) 4 mg Q6H PRN IVP NAUSEA/VOMITING 11/20/24 13:30 12/20/24 13:29 Pantoprazole Sodium (PROTonix 40MG TAB) 40 mg DAILY PO 11/20/24 13:30 12/20/24 13:29 11/20/24 13:36 40 MG Spironolactone (Aldactone 25mg) 25 mg DAILY PO 11/21/24 09:00 12/21/24 08:59 DIAGNOSTICS / RADIOLOGY: SERVICE 1102 REASON: chest pain ORDERING PHYSICIAN: DEBO HEATH DO PROCEDURE: CXR1VW - CHEST 1VW Exam Type: CHEST 1VW Clinical Information: chest pain Comparison: None Findings: The lungs are clear of infiltrates. The heart is normal in size. The bony and soft tissue structures of the chest are unremarkable. Impression: Clear lungs. DICTATED BY: SANDY JENKINS MD DATE: 11/20/24 112 ELECTRONICALLY SIGNED BY: SANDY JENKINS MD DATE: 11/20/24 1131 ASSESSMENT: Chest pain, POA Acute kidney injury, POA Uncontrolled hyperglycemia with history of poorly controlled type 2 diabetes mellitus, POA Recent history of hospitalization in [facility] [facility] for chest pain deemed musculoskeletal, 10/27/2024, POA History of multivessel coronary artery disease, POA History of inferior wall VA in 2013, POA History of NSTEMI in 2018, w/ PTCA and PCI to RCA, POA Prior history of left heart catheterization on 01/2024 which showed a patent RCA stent with chronically occluded LAD with severe cardiomyopathy, POA History of ischemic cardiomyopathy with LV EF of 45-50%, POA MIGUEL A, POA COPD on home oxygen at 3 L, POA Obesity, POA Tobacco use disorder, POA Cocaine use disorder, POA Poorly controlled hyperlipidemia, POA Medical noncompliance, POA PLAN: Patient will be admitted to cardiac telemetry floor Discussed with patient to abstain from any cocaine use which can increase risk of STEMI, ACS etc. patient verbalized understanding, patient was also counseled to quit smoking due to underlying history of prior VA, COPD, patient continues to smoke and he has poor understanding of his multiple acute comorbidities We will cycle troponin to rule out active ACS We will hold beta blockers for today due to use of cocaine two days ago Patient to continue with antiplatelet therapy with aspirin Continue with lisinopril 2.5 mg daily, Lasix 40 mg daily Monitor renal function closely, we will hold Aldactone until creatinine improves, we will obtain a renal ultrasound If renal function worsens, lisinopril we will need to be held Patient will be started on sliding scale insulin a.c. and HS, continue with Farxiga, Lantus 20 units daily, consultation with Endocrinology will be requested due to poorly controlled type 2 diabetes mellitus, A1c was close to 15 earlier this month Patient's case was discussed with Dr. Ba, appreciate recommendations All labs will be repeated in the morning Date of service: 11/20/2024 Plan of care was discussed with patient at bedside, Oscar Gomez MD Advanced Care Planning: Which of the following were discussed: Hospice care: Yes __ No _X_ Therapeutic options: Yes _X_ No __ Advance directives: Yes _X_ No __ Other discussions: Discussed with who?: Patient Voluntary nature of this service was explained to the patient? Yes _x_ No __ Amount of time spent: 20 minutes OSCAR GOMEZ MD Nov 20, 2024 16:06
[2024-11-20] MEDS: BUDESONIDE 0.5 MG/2 ML INH IH SCH (18:00)
--- NOTE | 2024-11-20 18:16 | CONS ---
[facility] CONSULTATION REPORT Cardiology consultation note dictated for Roland Chirinos MD Date Patient Seen: Nov 20, 2024 Requesting Physician: Morteza Gomez MD Reason for Consultation: Chest pain History of Present Illness: This is a 44-year-old male with a past medical history of hypertension, hyperlipidemia, diabetes mellitus type 2, obstructive sleep apnea with noncompliance with CPAP therapy, polysubstance abuse (tobacco, alcohol, and cocaine), ruptured nonobstructive proximal left anterior descending plaque with acute coronary thrombosis and anterior wall infarct during cocaine binge in 2013, anterior TN treated with RCA stent on 05/13/2018, [facility] on 02/24/2024 with patent RCA stent and a chronically occluded LAD, 2D echo on 08/17/2024 with an of EF 45-50%, normal diastolic function, with anterior, anterolateral wall hypokinesis, obesity, and noncompliance with follow-up who presented to the ED with complaints of chest pain. Cardiology has been consulted for chest pain. The patient endorsed as he was sitting, he began to experience non-radiating, left sided chest discomfort described as a stabbing sensation with a 9/10 intensity. Accompanying symptoms included shortness of breath, diaphoresis, and dizziness. The discomfort lasted approximately 30 minutes and was relieved by sublingual nitroglycerin. There were no aggravating factors. Troponin of 17 and 18. EKG demonstrated normal sinus rhythm/first-degree AVB with a heart rate of 97bpm. He did admit he forgot to take his own SL nitro. The patient currently denies chest pain, chest pressure, palpitations, dizziness, shortness of breath, or syncope. BNP of 33. CRP is elevated at 11.4. ESR is normal at 13. UDS positive for cocaine. Past Medical History: As per HPI and summarized below Past Surgical History: None Family History: Noncontributory Social History: The patient lives with his . Habits: The patient admits to smoking half a pack of cigarettes per day. The patient drinks approximately 7 beers per week. The patient uses cocaine approximately 2 times a week. Home Meds: Aspirin 81 mg daily Atorvastatin 40 mg nightly Metoprolol succinate 25 mg daily Lisinopril 2.5 mg daily Lasix 40 mg daily Spironolactone 25 mg daily Nitroglycerin 0.4 mg sublingual p.r.n. CP Farxiga 5 mg daily Tricor 145 mg daily Pantoprazole 40 mg daily Metformin 1000 mg b.i.d. Albuterol sulfate 90 mcg inhaler q.4 hours p.r.n. Lantus insulin 20 units subQ q.h.s. Current Meds: Current Medications Medications Dose Ordered Sig/Rose Marie Start Time Stop Time Status Last Admin Insulin Human Regular INSULIN SLIDING SCAL... ACHS 11/20/24 16:30 12/20/24 16:29 11/20/24 13:34 Nitroglycerin 0.4 mg AD PRN 11/20/24 13:30 12/20/24 13:29 Aspirin 81 mg DAILY 11/20/24 13:30 12/20/24 13:29 11/20/24 13:36 Pantoprazole Sodium 40 mg DAILY 11/20/24 13:30 12/20/24 13:29 11/20/24 13:36 Acetaminophen 650 mg Q6H PRN 11/20/24 13:30 12/20/24 13:29 Ondansetron HCl 4 mg Q6H PRN 11/20/24 13:30 12/20/24 13:29 Morphine Sulfate 2 mg Q4H PRN 11/20/24 13:30 11/27/24 13:29 Atorvastatin Calcium 40 mg HS 11/20/24 21:00 12/20/24 20:59 Fenofibrate 145 mg DAILY 11/21/24 09:00 12/21/24 08:59 Furosemide 40 mg DAILY 11/21/24 09:00 12/21/24 08:59 Insulin Glargine 20 units HS 11/20/24 21:00 12/20/24 20:59 Lisinopril 2.5 mg DAILY 11/21/24 09:00 12/21/24 08:59 Home Med (Dapagliflozin Propanediol (Farxiga... DAILY 11/21/24 09:00 12/21/24 08:59 Budesonide 0.5 mg BIDRESP 11/20/24 18:00 12/20/24 17:59 Ipratropium [place] 0.5 mg Q6H PRN 11/20/24 16:00 12/20/24 15:59 Review of Systems: CONST: No fever, fatigue, or weight changes. EYES: No recent vision problems. ENT: No congestion, ear pain, or sore throat. C/V: No chest pain, palpitations, or edema. RESP: No cough, congestion, wheezing or shortness of breath. GI: No abdominal pain, nausea, vomiting, constipation, or diarrhea. : No incontinence or dysuria. SKIN: No rash. NEURO: No headache, focal numbness or weakness, dizziness, or seizures. PSYCH: No depression or anxiety. HEME: No abnormal bruising or bleeding. LYMPH: No swollen glands. Physical Examination: GENERAL: No acute distress. HEAD: Normal with no signs of head trauma. EYES: PERRLA, EOMI, conjunctiva and sclera normal. ENT: Hearing grossly intact, normal oropharynx. NECK: Supple without JVD. There is no tenderness, lymphadenopathy, or masses. No thyromegaly. Normal carotid upstrokes without bruits. LUNGS: Clear breath sounds bilaterally. No wheezes, or rhonchi. HEART: Normal rate and rhythm. Normal S1 and S2 without murmurs, gallop or rub. VASC: Peripheral pulses +2 bilaterally. ABD: Bowel sounds normal, soft, nontender, no masses, no organomegaly. No audible bruits. : Not examined LYMPH: No lymphadenopathy noted. EXT: No clubbing, cyanosis or edema. SKIN: No rashes or lesions noted. NEURO: Awake, alert, and oriented x3. No focal sensory or strength deficits noted. Vital Signs (last 8hr) Date Time Temp Pulse Resp B/P (MAP) Pulse Ox O2 Delivery O2 Flow Rate FiO2 11/20/24 16:51 89 16 N/A Room Air 21 11/20/24 16:47 82 18 109/61 98 Room Air* 0 11/20/24 13:26 84 18 99/72 96 Room Air* 0 11/20/24 11:02 99.1 95 15 101/69 96 Room Air 0 Laboratory: Hematology Labs: Test 11/20/24 11:48 Range/Units White Blood Count 7.7 4.8-10.8 K/uL Red Blood Count 5.81 4.50-6.20 MIL/uL Hemoglobin 16.4 14.0-18.0 g/dL Hematocrit 49.4 42-54 % Mean Corpuscular Volume 85.0 79-99 fL Mean Corpuscular Hemoglobin 28.2 27.0-33.0 pg Mean Corpuscular Hemoglobin Concent 33.2 32.0-36.0 g/dL Red Cell Distribution Width 13.7 11.0-15.5 % Platelet Count 366 130-400 K/uL Mean Platelet Volume 8.8 7.5-10.5 fL Immature Granulocyte % (Auto) 0.4 0-1 % Neutrophils (%) (Auto) 72.6 40.0-77.0 % Lymphocytes (%) (Auto) 19.1 L 21.0-51.0 % Monocytes (%) (Auto) 6.5 3.0-13.0 % Eosinophils (%) (Auto) 1.0 0.0-8.0 % Basophils (%) (Auto) 0.4 0.0-5.0 % Neutrophils # (Auto) 5.6 1.8-7.7 K/uL Lymphocytes # (Auto) 1.5 1.0-4.8 K/uL Monocytes # (Auto) 0.5 0.1-1.0 K/uL Eosinophils # (Auto) 0.08 0.00-0.70 K/uL Basophils # (Auto) 0.03 0.00-0.20 K/uL Absolute Immature Granulocyte (auto 0.03 0-1 K/uL Nucleated Red Blood Cells 0.0 0.0-0.19 % Erythrocyte Sedimentation Rate 13 0-15 MM/HR Chemistry Labs: Test 11/20/24 12:55 11/20/24 11:48 Range/Units Troponin I High Sensitivity 18 4-75 ng/L Sodium Level 134 L 136-145 mmol/L Potassium Level 4.5 3.5-5.1 mmol/L Chloride Level 94 L 101-111 mmol/L Carbon Dioxide Level 35 H 21-32 mmol/L Blood Urea Nitrogen 33 H 7-18 mg/dL Creatinine 1.7 H 0.5-1.3 mg/dL Glomerular Filtration Rate Calc 50 >90 mL/min Random Glucose 358 H 70-105 mg/dL Total Calcium 9.2 8.5-10.1 mg/dL Total Bilirubin 0.4 0.2-1.0 mg/dL Direct Bilirubin 0.1 0.0-0.3 mg/dL Aspartate Amino Transf (AST/SGOT) 12 10-37 U/L Alanine Aminotransferase (ALT/SGPT) 20 12-78 U/L Alkaline Phosphatase 105 50-136 U/L C-Reactive Protein, Quantitative 11.40 H 0.5-3.0 mg/L B-Type Natriuretic Peptide 33 0-100 pg/mL Total Protein 6.9 6.0-8.3 g/dL Albumin 3.5 3.5-5.0 g/dL Triglycerides Level 583 H 30-200 mg/dL Cholesterol Level 183 # <200 mg/dL LDL Cholesterol 84 0-99 mg/dL HDL Cholesterol 27 L 29-71 mg/dL Procalcitonin < 0.05 L 0.05-0.5 ng/mL Coagulation Labs: Test 11/20/24 11:48 Range/Units Prothrombin Time 9.7 9.6-11.6 SEC Prothromb Time International Ratio <= 0.93 0.85-1.15 Activated Partial Thromboplast Time 24.2 L 26.3-35.5 SEC Diagnostics / Radiology: Impression and Plan: Chest pain HTN HLD, hypertriglyceridemia DM type II MIGUEL A With noncompliance with CPAP therapy Polysubstance abuse (tobacco, alcohol, and cocaine) Ruptured nonobstructive proximal left anterior descending plaque with acute coronary thrombosis and anterior wall infarct during cocaine binge in 2013 Anterior TN treated with RCA stent on 05/13/2018 [facility] on 02/24/2024 with patent RCA stent and a chronically occluded LAD 2D echo on 08/17/2024 with an of EF 45-50%, normal diastolic function, with anterior, anterolateral wall hypokinesis (improved from EF 20-25% in 01/2024) Obesity Noncompliance with follow-up Chest pain Troponin of 17 and 18 EKG demonstrated normal sinus rhythm/first-degree AVB with a heart rate of 97bpm -Continue aspirin 81 mg daily and atorvastatin 40 mg q.h.s -Hold Metoprolol succinate as UDS positive for cocaine HFimp EF 2D echo on 08/17/2024 with an of EF 45-50%, normal diastolic function, with anterior, anterolateral wall hypokinesis (improved from EF 20-25% in 01/2024) -Continue home GDMT: Lisinopril 2.5 mg daily and Farxiga 5 mg daily -Continue Lasix 40 mg po daily -Can hold Spironolactone 25 mg daily for now due to elevated creatinine of 1.7 -Hold Metoprolol succinate as UDS positive for cocaine ATTESTATION BY PHYSICIAN I have seen and examined the patient, reviewed the above documentation, participated in medical decision making, made necessary modifications, and agree with the treatment plan as documented by my mid-level provider above. MD SNOW Avalos [facility] Nov 20, 2024 18:16 ROLAND CHIRINOS MD Nov 20, 2024 18:45
--- NOTE | 2024-11-20 20:17 | NUR ---
NOTIFIED ON-CALL, STEVE MADISON, OF PT BLOOD GLUCOSE OF 366, STATED TO GIVE SCHEDULED INSULIN FOR TONIGHT AND TO RECHECK AT MIDNIGHT, REPEATED BACK.
[2024-11-20] MEDS: INSULIN GLARgine 100 UNITS/ML 10 ML VIAL SQ SCH (20:32)
[2024-11-20] MEDS: atorVAStatin 40 MG TABLET PO SCH (20:38)
[2024-11-21] VITALS (7 sets, daily range): BP systolic 98–132; BP diastolic 73–80; PULSE 79–95; RESP 18; TEMP 97.7–98.2; O2SAT 97
--- NOTE | 2024-11-21 06:51 | CONS ---
CONSULT NOTE: endocrinology consult chief complaint: chest pain reason for consult: uncontrolled dm-2 Date of Service: Nov 21, 2024 HISTORY OF PRESENT ILLNESS: 44-year-old male with multiple cardiac comorbidities including hypertension, hyperlipidemia, type 2 diabetes mellitus, coronary artery disease, prior history of inferior wall OH in 2014,, history of NSTEMI in 2018 which revealed 100% AIR CARGO SPECIALIST of the LAD with PTCA and stent to the RCA and thrombectomy of distal thrombus,, left heart catheterization on 01/2024 which revealed patent RCA stent and chronically occluded LAD with underlying history of severe cardiomyopathy, MIGUEL A, COPD, history of recurrent cocaine use, poorly controlled type 2 diabetes mellitus who presented to the ER for further evaluation of acute onset of chest pain today. He was last admitted in [facility] on 10/26/2024 and discharged from the facility on 10/27/2024. Patient had presented with chest pain as well and pain was deemed to be musculoskeletal. On presentation to the hospital, patient was noted to be afebrile with T-max of 99.1 F and hemodynamically stable. Labs on presentation showed WBC count of 7700, hemoglobin of 16.4, platelet count of 462310. BMP showed sodium of 134, potassium 4.5, BUN of 33, creatinine of 1.7, blood glucose of 358, cardiac troponin was noted to be negative at 17. Chest x-ray showed no acute infiltrates. he use lantus 25 untis daily and metformin 500 mg bid but non-compliant. hba1c >15.0% REVIEW OF SYSTEMS CONSTITUTIONAL: Denies fevers, chills, or night sweats. No unintentional weight loss reported. NEUROLOGICAL: Denies headache, amaurosis fugax, motor weakness, sensory deficit, vertigo/spinning sensation, gait abnormalities, or tremors. ENT: No hearing loss, otalgia, otorrhea, rhinitis, rhinorrhea, hoarseness, or sore throat. CARDIOVASCULAR: Patient reports having acute onset of chest painbut improved now. PULMONARY: Denies any shortness of breath, cough, phlegm/sputum, hemoptysis, pleuritic chest pain. SLEEP: Denies morning headaches, daytime somnolence or napping. Denies diffic ulty falling asleep, staying asleep, waking from sleep. Denies knowledge of snoring. GASTROINTESTINAL: Denies any type of dysphagia to either liquids or solids. Denies nausea, vomiting, pyrosis, early satiety, abdominal pain, diarrhea, constipation, or changes in stool consistency or caliber. Denies coffee-ground emesis, hematemesis, hematochezia, or melanotic stools. GENITOURINARY: Denies frequency, urgency, nocturia, hematuria or incontinence (Storage/Irritative symptoms.) Low urinary stream, straining to void, urinary intermittency or hesitancy, splitting of the voiding stream, terminal dribbling. ENDOCRINOLOGIC: Denies polyuria, polydipsia, polyphagia or heat/cold into lerances. HEMATOLOGIC: Denies thrombophilia/previous clots, or coagulopathy/bleeding disorders. ONCOLOGIC: Denies personal history of malignancy. DERMATOLOGIC: Denies rashes or pruritus. PSYCHIATRIC: Denies any suicidal or homicidal ideation. Denies hallucinations. PAST MEDICAL HISTORY: Hypertension, hyperlipidemia, history of ischemic cardiomyopathy, coronary artery disease, prior history of STEMI in 2013, history of NSTEMI in 2017, medical noncompliance, poorly controlled type 2 diabetes mellitus, COPD, obstructive sleep apnea PAST SURGICAL HISTORY: History of multiple cardiac catheterizations previously in 2013, 2017, and 2023 PAST SOCIAL HISTORY: Smokes about half a pack a day for about 20 years, denies significant alcohol use, reports having used cocaine two days ago FAMILY HISTORY: Reports family history of heart disease Coded Allergies: No Known Drug Allergies (Unverified Allergy, Unknown, 05/09/18) Unable to Assess (Verified Allergy, Unknown, 05/09/18) PHYSICAL EXAM GENERAL APPEARANCE: The patient is awake, alert, and oriented, in no acute cardiopulmonary distress. NEUROLOGICAL: Cranial nerves II-XII grossly intact. Motor is 5/5 in bilateral upper and lower extremities proximal to distal. No sensory deficits. HEENT: Face is symmetric. Pupils are equal and reactive. Extraocular movements are intact. NECK: Supple. No JVD. No thyromegaly. No submental, submandibular, pre- /postauricular, occipital or supraclavicular lymphadenopathy. CHEST: Normal chest expansion. No Telemetry. LUNGS: Minimal crackles noted of bilateral lung bases CARDIOVASCULAR: Regular. S1 and S2 normal. No appreciable rubs, murmurs or gallops. ABDOMEN: Soft, nontender, and nondistended. There is no rebound, voluntary guarding, or rigidity. : Deferred. No [place]. EXTREMITIES: Non-edematous and not cyanotic. No clubbing. Good capillary refill. SKIN: No skin breakdown. DIAGNOSTICS / RADIOLOGY: SERVICE 1102 REASON: chest pain ORDERING PHYSICIAN: DEBO HEATH DO PROCEDURE: CXR1VW - CHEST 1VW Exam Type: CHEST 1VW Clinical Information: chest pain Comparison: None Findings: The lungs are clear of infiltrates. The heart is normal in size. The bony and soft tissue structures of the chest are unremarkable. Impression: Clear lungs. DICTATED BY: SANDY JENKINS MD DATE: 11/20/24 112 ELECTRONICALLY SIGNED BY: SANDY JENKINS MD DATE: 11/20/24 1131 ASSESSMENT: Uncontrolled hyperglycemia with history of poorly controlled type 2 diabetes mellitus, POA he use lantus 25 untis daily and metformin 500 mg bid but non-compliant. hba1c >15.0% Chest pain, POA ACS was ruled out and use cocaine. Acute kidney injury, POA Recent history of hospitalization in [facility] for chest pain deemed musculoskeletal, 10/27/2024, POA History of multivessel coronary artery disease, POA History of inferior wall OH in 2013, POA History of NSTEMI in 2018, w/ PTCA and PCI to RCA, POA Prior history of left heart catheterization on 01/2024 which showed a patent RCA stent with chronically occluded LAD with severe cardiomyopathy, POA History of ischemic cardiomyopathy with LV EF of 45-50%, POA MIGUEL A, POA COPD on home oxygen at 3 L, POA Obesity, POA Tobacco use disorder, POA Cocaine use disorder, POA Poorly controlled hyperlipidemia, POA Medical noncompliance, POA PLAN: increase lantus to 30 units daily increase regular insulin to 15 units tid before meals increase ssi to medium dose ssi monitor glucose qx6 hourly patient will need lantus 50 units daily and metformin 500 bid. need good adherence to insulin thanks for allowing me to participate in patient care and will continue to follow up. Vital Signs 11/20/24 11/21/24 11/21/24 20:00 03:00 06:30 Temp 98.1 Pulse 95 Resp 18 B/P (MAP) 132/75 Pulse Ox 94 O2 Delivery N/A Room Air O2 Flow Rate 0 FiO2 21 Hematology Labs: Test 11/20/24 11:48 Range/Units White Blood Count 7.7 4.8-10.8 K/uL Red Blood Count 5.81 4.50-6.20 MIL/uL Hemoglobin 16.4 14.0-18.0 g/dL Hematocrit 49.4 42-54 % Mean Corpuscular Volume 85.0 79-99 fL Mean Corpuscular Hemoglobin 28.2 27.0-33.0 pg Mean Corpuscular Hemoglobin Concent 33.2 32.0-36.0 g/dL Red Cell Distribution Width 13.7 11.0-15.5 % Platelet Count 366 130-400 K/uL Mean Platelet Volume 8.8 7.5-10.5 fL Immature Granulocyte % (Auto) 0.4 0-1 % Neutrophils (%) (Auto) 72.6 40.0-77.0 % Lymphocytes (%) (Auto) 19.1 L 21.0-51.0 % Monocytes (%) (Auto) 6.5 3.0-13.0 % Eosinophils (%) (Auto) 1.0 0.0-8.0 % Basophils (%) (Auto) 0.4 0.0-5.0 % Neutrophils # (Auto) 5.6 1.8-7.7 K/uL Lymphocytes # (Auto) 1.5 1.0-4.8 K/uL Monocytes # (Auto) 0.5 0.1-1.0 K/uL Eosinophils # (Auto) 0.08 0.00-0.70 K/uL Basophils # (Auto) 0.03 0.00-0.20 K/uL Absolute Immature Granulocyte (auto 0.03 0-1 K/uL Nucleated Red Blood Cells 0.0 0.0-0.19 % Erythrocyte Sedimentation Rate 13 0-15 MM/HR Chemistry Labs: Test 11/21/24 05:21 11/21/24 00:20 11/20/24 11:48 Range/Units Whole Blood Glucose 217 H 70-110 MG/DL Total Creatine Kinase 73 # 21-232 U/L Troponin I High Sensitivity 18.4 4-75 ng/L Sodium Level 134 L 136-145 mmol/L Potassium Level 4.5 3.5-5.1 mmol/L Chloride Level 94 L 101-111 mmol/L Carbon Dioxide Level 35 H 21-32 mmol/L Blood Urea Nitrogen 33 H 7-18 mg/dL Creatinine 1.7 H 0.5-1.3 mg/dL Glomerular Filtration Rate Calc 50 >90 mL/min Random Glucose 358 H 70-105 mg/dL Total Calcium 9.2 8.5-10.1 mg/dL Total Bilirubin 0.4 0.2-1.0 mg/dL Direct Bilirubin 0.1 0.0-0.3 mg/dL Aspartate Amino Transf (AST/SGOT) 12 10-37 U/L Alanine Aminotransferase (ALT/SGPT) 20 12-78 U/L Alkaline Phosphatase 105 50-136 U/L C-Reactive Protein, Quantitative 11.40 H 0.5-3.0 mg/L B-Type Natriuretic Peptide 33 0-100 pg/mL Total Protein 6.9 6.0-8.3 g/dL Albumin 3.5 3.5-5.0 g/dL Triglycerides Level 583 H 30-200 mg/dL Cholesterol Level 183 # <200 mg/dL LDL Cholesterol 84 0-99 mg/dL HDL Cholesterol 27 L 29-71 mg/dL Procalcitonin < 0.05 L 0.05-0.5 ng/mL Coagulation Labs: Test 11/20/24 11:48 Range/Units Prothrombin Time 9.7 9.6-11.6 SEC Prothromb Time International Ratio <= 0.93 0.85-1.15 Activated Partial Thromboplast Time 24.2 L 26.3-35.5 SEC Current Medications Medications (Trade) Dose Ordered Sig/Rose Marie Route Start Time Stop Time Status Last Admin Dose Admin Aspirin (Aspirin 81mg Chew Tab) 81 mg DAILY PO 11/20/24 13:30 12/20/24 13:29 11/20/24 13:36 81 MG Atorvastatin Calcium (LIPItor 40MG) 40 mg HS PO 11/20/24 21:00 12/20/24 20:59 11/20/24 20:38 40 MG Budesonide (Pulmicort 0.5 Mg/2ml) 0.5 mg BIDRESP IH 11/20/24 18:00 12/20/24 17:59 11/21/24 06:29 0.5 MG Fenofibrate (Tricor) 145 mg DAILY PO 11/21/24 09:00 12/21/24 08:59 Furosemide (LASix 40MG TAB) 40 mg DAILY PO 11/21/24 09:00 12/21/24 08:59 Home Med (Home Medication) (Dapagliflozin Propanediol (Farxiga... DAILY PO 11/21/24 09:00 12/21/24 08:59 Insulin Glargine (LANtus 100 UNITS/ML 10 ML VIAL) 20 units HS SQ 11/20/24 21:00 12/20/24 20:59 11/20/24 20:32 20 UNITS Insulin Human Regular (humuLIN R 100 UNIT/ML 3ML) INSULIN SLIDING SCAL... ACHS SQ 11/20/24 16:30 11/20/24 20:46 DC 11/20/24 20:32 8 UNIT Insulin Human Regular (humuLIN R 100 UNIT/ML 3ML) INSULIN SLIDING SCAL... ACHS SQ 11/20/24 21:00 12/20/24 20:59 Lisinopril (Prinivil 2.5mg) 2.5 mg DAILY PO 11/21/24 09:00 12/21/24 08:59 Pantoprazole Sodium (PROTonix 40MG TAB) 40 mg DAILY PO 11/20/24 13:30 12/20/24 13:29 11/20/24 13:36 40 MG Spironolactone (Aldactone 25mg) 25 mg DAILY PO 11/21/24 09:00 11/20/24 15:54 DONAVAN FORMAN MD Nov 21, 2024 06:51
[2024-11-21 06:59] LABS: CREATININE 1.2 mg/dL (0.5-1.3); POTASSIUM 4.2 mmol/L (3.5-5.1)
--- NOTE | 2024-11-21 08:34 | HMCIMG ---
ULTRASOUND RENAL COMPLETE INDICATION: ALEXA TECHNIQUE: Routine ultrasound of the kidneys and urinary bladder with grayscale and color Doppler imaging was performed in real-time, and subsequently made available for review. COMPARISON: No prior studies available for comparison. FINDINGS: The echogenic right kidney measures 13.3 x 7.8 x 5.6 cm. No abnormal mass demonstrated. No evidence for hydronephrosis or shadowing stone. A few simple cysts scattered throughout the right kidney, largest of which measures up to 4.9 cm. The echogenic left kidney measures 15.0 x 6.8 x 6.8 cm. No abnormal mass demonstrated. No evidence for hydronephrosis or shadowing stone. A few simple cysts scattered throughout the left kidney, largest of which is measured at 4.0 cm. Urinary bladder is distended. No free fluid demonstrated. IMPRESSION: Bilateral echogenic kidneys can be seen with acute tubular necrosis or acute interstitial nephritis in the appropriate clinical setting, but no evidence for hydronephrosis. Multiple simple bilateral renal cysts.
[2024-11-21] MEDS: DAPAGLIFLOZIN PROPANEDIOL PO SCH (08:42)
[2024-11-21] MEDS: LISINOPRIL 2.5 MG TABLET PO SCH (08:53)
[2024-11-21] MEDS: furoSEMIDE 40 MG TABLET PO SCH (08:53)
[2024-11-21] MEDS: FENOFIBRATE NANOCRYSTALLIZED 145 MG TAB PO SCH (08:53)
[2024-11-21] MEDS: ENOXAPARIN SODIUM 40 MG/0.4 ML SYRINGE SQ SCH (08:53)
[2024-11-21] MEDS: INSULIN humuLIN R 100 UNIT/ML 3ML SQ SCH ×2 (08:54→12:28)
[2024-11-21] MEDS: INSULIN GLARgine 100 UNITS/ML 10 ML VIAL SQ SCH (08:59)
[2024-11-21] MEDS ORDERED: SPIRONOLACTONE 25 MG TAB PO SCH (09:00)
--- NOTE | 2024-11-21 14:36 | PN ---
Cardiology Progress Note Date of Service: 11/21/2024 Attending Thermoplastic Technician: Dr. Brian Valdez Primary Thermoplastic Technician: Dr. 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 The patient denies any recurrent chest pain, chest pressure, palpitations, or shortness for breath. As per the nurse, there were no overnight events. Subjective: This is a Vitals/Labs Vital Signs Date Time Temp Pulse Resp B/P (MAP) Pulse Ox O2 Delivery O2 Flow Rate FiO2 11/21/24 11:55 98.2 93 18 105/75 94 11/21/24 10:52 Room Air* 0 21 General: Awake and alert. No acute distress. HEENT: Normocephalic, atraumatic, EOMI, oral mucosa was moist. Neck: No masses, JVD, or carotid bruits noted. Lungs: No respiratory distress. SCM. Bilateral air entry. Clear to auscultation bilaterally. No obvious rales, wheezing, or rhonchi noted. Cardio: Regular rate. Normal S1 and S2. +S4. No obvious murmurs, gallops, or rubs noted. Abdomen: Soft, nontender, nondistended, no organomegaly. Normal active bowel sounds x4 quadrants. Extremities: No edema, clubbing, or cyanosis noted. +2 pulses noted throughout. Neuro: Cranial nerves II through XII are grossly intact. No focal deficit identified. 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 Chest pain, ACS ruled out -Resolved -Cardiac enzymes-high sensitivity troponin I: 17, 18, 15.9, 18.4, 23 -The etiology behind the patient's symptoms remains unknown, but thus far ACS has been ruled out via serial cardiac enzymes. However, given the patient's chronic cocaine abuse, we have a high suspicion for underlying coronary vasospasms as the etiology behind the patient's symptoms. -In any case, we do recommend any further ischemic cardiac workup/testing/imaging. -In order to optimize medical therapy we will start the patient on carvedilol 3.125 mg BID and isosorbide mononitrate ER 30 mg daily, and he will continue on conservative medical therapy which includes aspirin 81 mg daily, atorvastatin 40 mg QHS, and fenofibrate 145 mg daily. -Refraining from polysubstance abuse was stressed to the patient and he voiced understanding. The patient can be discharged home from cardiac standpoint. Please have the patient follow up with Cardiology, Dr. Luciano Ba, 2 weeks after discharge. This case was discussed with my Supervising Physician, Dr. Brian Valdez, and the above-mentioned plan was formulated and agreed upon. -Progress Note written by Cuco Hodge, MSN, SURGICAL APPLIANCE FITTER, AGACNP-BC [facility] HODGE NP Nov 21, 2024 14:36
[2024-11-21] MEDS ORDERED: CARV3.1262 PO (15:56)
[2024-11-21] MEDS ORDERED: ISOS30TA92 PO (15:56)
--- NOTE | 2024-11-21 16:06 | DS ---
Discharge Summary Hospital Course Summary: 44-year-old male with multiple cardiac comorbidities including hypertension, hyperlipidemia, type 2 diabetes mellitus, coronary artery disease, prior history of inferior wall CT in 2014,, history of NSTEMI in 2018 which revealed 100% POULTRY GRADER of the LAD with PTCA and stent to the RCA and thrombectomy of distal thrombus,, left heart catheterization on 01/2024 which revealed patent RCA stent and chronically occluded LAD with underlying history of severe cardiomyopathy, MIGUEL A, COPD, history of recurrent cocaine use, poorly controlled type 2 diabetes mellitus who presented to the ER for further evaluation of acute onset of chest pain. Patient states that he had [id number] left-sided chest pain with associated radiation to the left shoulder and left arm that lasted for about 30 minutes. Symptoms were accompanied by diaphoresis, dizziness and symptoms improved prior to coming to the ER. Patient received 0.4 mg of sublingual nitroglycerin as well as 324 mg of aspirin. Denies any fevers, chills or abdominal pain. He was admitted started on ACS protocol and Cardiology was consulted. Lab work was ordered, patient's troponins were normal, chest x-ray did not reveal any acute infiltrates. EKG did not show any size of acute ischemia, there was new first-degree AV block and intraventricular conduction delay. UDS was positive for cocaine. Hospital day two patient was cleared for by Cardiology for discharge back home, he will be started on carvedilol and isosorbide mononitrate. When discussing the cocaine, patient reports that he regularly handles it and sells it and believes he absorbs it through his skin. Patient advised on the dangers specifically to his heart and recommended he discontinue further exposure. He will be discharged back home Airport Operations Officer(s): Cardiology Procedure(s): ULTRASOUND RENAL COMPLETE INDICATION: ALEXA TECHNIQUE: Routine ultrasound of the kidneys and urinary bladder with grayscale and color Doppler imaging was performed in real-time, and subsequently made available for review. COMPARISON: No prior studies available for comparison. FINDINGS: The echogenic right kidney measures 13.3 x 7.8 x 5.6 cm. No abnormal mass demonstrated. No evidence for hydronephrosis or shadowing stone. A few simple cysts scattered throughout the right kidney, largest of which measures up to 4.9 cm. The echogenic left kidney measures 15.0 x 6.8 x 6.8 cm. No abnormal mass demonstrated. No evidence for hydronephrosis or shadowing stone. A few simple cysts scattered throughout the left kidney, largest of which is measured at 4.0 cm. Urinary bladder is distended. No free fluid demonstrated. IMPRESSION: Bilateral echogenic kidneys can be seen with acute tubular necrosis or acute interstitial nephritis in the appropriate clinical setting, but no evidence for hydronephrosis. Multiple simple bilateral renal cysts. Exam Type: CHEST 1VW Clinical Information: chest pain Comparison: None Findings: The lungs are clear of infiltrates. The heart is normal in size. The bony and soft tissue structures of the chest are unremarkable. Impression: Clear lungs. Assessment/Plan: Chest pain, POA Acute kidney injury, POA Uncontrolled hyperglycemia with history of poorly controlled type 2 diabetes mellitus, POA Recent history of hospitalization in [facility] for chest pain deemed musculoskeletal, 10/27/2024, POA History of multivessel coronary artery disease, POA History of inferior wall CT in 2013, POA History of NSTEMI in 2018, w/ PTCA and PCI to RCA, POA Prior history of left heart catheterization on 01/2024 which showed a patent RCA stent with chronically occluded LAD with severe cardiomyopathy, POA History of ischemic cardiomyopathy with LV EF of 45-50%, POA MIGUEL A, POA COPD on home oxygen at 3 L, POA Obesity, POA Tobacco use disorder, POA Cocaine use disorder, POA Poorly controlled hyperlipidemia, POA Medical noncompliance, POA Discharge Instructions: Follow up with PCP in 3-7 days. Please refer to building construction estimator for management of diabetes Follow up with cardiology in 1-2 weeks Home Medications: Active Scripts Dapagliflozin Propanediol (Farxiga) 5 Mg Tablet, 1 TAB PO DAILY for 30 Days, #30 TAB 0 Refills Prov:WILLIAM BARKER MD 10/27/24 Insulin Glargine,Hum.rec.anlog (Lantus) 100 Unit/Ml Inj, 20 UNITS SQ HS, #30 ML Prov:WILLIAM BARKER MD 10/27/24 Furosemide (Furosemide) 40 Mg Tablet, 40 MG PO DAILY, #30 TAB Prov:WILLIAM BARKER MD 10/27/24 Spironolactone (Spironolactone) 25 Mg Tablet, 1 TAB PO DAILY for 30 Days, #30 TAB 0 Refills Prov:WILLIAM BARKER MD 10/27/24 Lisinopril (Lisinopril) 2.5 Mg Tablet, 2.5 MG PO DAILY for 30 Days, #30 TAB 2 Refills Prov:WILLIAM BARKER MD 10/27/24 Fenofibrate Nanocrystallized (Tricor) 145 Mg Tablet, 145 MG PO DAILY for 30 Days, #30 TAB 2 Refills Prov:WILLIAM BARKER MD 10/27/24 Atorvastatin Calcium (LIPITOR) 40 Mg Tablet, 40 MG PO HS for 30 Days, #30 TAB 2 Refills Prov:WILLIAM BARKER MD 10/27/24 Pantoprazole Sodium (Pantoprazole Sodium) 40 Mg Tablet.dr, 40 MG PO DAILY, #30 TAB Prov:WILLIAM BARKER MD 10/27/24 Aspirin (ASPIRIN 81 MG ECTAB) 81 Mg Ectab, 81 MG PO DAILY, #30 TAB.EC Prov:WILLIAM BARKER MD 10/27/24 Albuterol Sulfate (Ventolin Hfa/Proventil Hfa/Proair Hfa) 90 Mcg Puff, 2 PUFF IH Q4H for WHEEZING, #1 INHALER 0 Refills Prov:RUSS AGUILAR MD 09/04/23 Reported Medications Metoprolol Succinate (Metoprolol Succinate) 25 Mg Tab.er.24h, 1 TAB PO DAILY for 30 Days, #30 TAB 0 Refills 11/20/24 Discontinued Scripts Metformin HCl (Metformin HCl ER) 1,000 Mg [id number], 1 TAB PO BID for diabetes for 30 Days, #60 TAB 0 Refills Prov:WILLIAM BARKER MD 10/27/24 Aspirin (ASPIRIN 81 MG ECTAB) 81 Mg Ectab, 81 MG PO DAILY for 30 Days, #30 TAB.EC 2 Refills Prov:WILLIAM BARKER MD 10/27/24 Lidocaine (Lidocaine Pain Relief) 4 % Adh..patch, 1 PATCH TP DAILY for 10 Days, #10 PATCH 0 Refills Prov:WILLIAM BARKER MD 10/27/24 Nitroglycerin (Nitroglycerin) 0.4 Mg Tab.subl, 0.4 MG SL [id number] PRN for chest pain, #30 TAB.SL 1 Refill Prov:CHARLIE AYOUB MD 02/26/24 New Medications: Isosorbide Mononitrate (Isosorbide Mononitrate ER) 30 Mg Tab.er.24h 1 TAB PO DAILY for 30 Days, #30 TAB 0 Refills Carvedilol (Coreg) 3.125 Mg Tablet 3.125 MG PO BID, #60 TAB 0 Refills Continued Medications: Aspirin (Aspirin 81 Mg Ectab) 81 Mg Ectab 81 MG PO DAILY, #30 TAB.EC Atorvastatin Calcium (Lipitor) 40 Mg Tablet 40 MG PO HS for 30 Days, #30 TAB 2 Refills Dapagliflozin Propanediol (Farxiga) 5 Mg Tablet 1 TAB PO DAILY for 30 Days, #30 TAB 0 Refills Fenofibrate Nanocrystallized (Tricor) 145 Mg Tablet 145 MG PO DAILY for 30 Days, #30 TAB 2 Refills Furosemide (Furosemide) 40 Mg Tablet 40 MG PO DAILY, #30 TAB Insulin Glargine,Hum.rec.anlog (Lantus) 100 Unit/Ml Inj 20 UNITS SQ HS, #30 ML Lisinopril (Lisinopril) 2.5 Mg Tablet 2.5 MG PO DAILY for 30 Days, #30 TAB 2 Refills Pantoprazole Sodium (Pantoprazole Sodium) 40 Mg Tablet.dr 40 MG PO DAILY, #30 TAB Spironolactone (Spironolactone) 25 Mg Tablet 1 TAB PO DAILY for 30 Days, #30 TAB 0 Refills Discontinued Medications: Albuterol Sulfate (Ventolin Hfa/Proventil Hfa/Proair Hfa) 90 Mcg Puff 2 PUFF IH Q4H for WHEEZING, #1 INHALER 0 Refills Metoprolol Succinate (Metoprolol Succinate) 25 Mg Tab.er.24h 1 TAB PO DAILY for 30 Days, #30 TAB 0 Refills Time spent arranging discharge: 31-60 minutes WILLIAM BARKER MD Nov 21, 2024 16:06
[2024-11-21] MEDS ORDERED: INSULIN humuLIN R 100 UNIT/ML 3ML SQ SCH (17:00)
[2024-11-21] MEDS: carVEDIlol 3.125 MG TABLET PO SCH (17:28)
[2024-11-21] MEDS: ISOSORBIDE MONO 30MG SR TAB PO SCH (17:29)
== END 2024-11-21 18:05 | disposition home or self-care (01) | DRG 313 ==
LOC: EDH 11:00 → EDHIP 13:24 → 2DH 17:40
PROVIDERS: ADMIT Internal Medicine; ATTEND Internal Medicine
DX: R07.89 Other chest pain (principal); N17.9 Acute kidney failure, unspecified; E66.2 Morbid (severe) obesity with alveolar hypoventilation; I50.22 Chronic systolic (congestive) heart failure; E11.65 Type 2 diabetes mellitus with hyperglycemia; E78.00 Pure hypercholesterolemia, unspecified; F17.210 Nicotine dependence, cigarettes, uncomplicated; J44.9 Chronic obstructive pulmonary disease, unspecified; I25.82 Chronic total occlusion of coronary artery; F14.129 Cocaine abuse with intoxication, unspecified; E78.1 Pure hyperglyceridemia; I25.5 Ischemic cardiomyopathy; I25.10 Atherosclerotic heart disease of native coronary artery without angina pectoris; I11.0 Hypertensive heart disease with heart failure; Z79.82 Long term (current) use of aspirin; Z79.84 Long term (current) use of oral hypoglycemic drugs; Z79.899 Other long term (current) drug therapy; Z82.49 Family history of ischemic heart disease and other diseases of the circulatory system; Z79.4 Long term (current) use of insulin; Z71.6 Tobacco abuse counseling; Z91.199 Patient's noncompliance with other medical treatment and regimen due to unspecified reason; Z95.5 Presence of coronary angioplasty implant and graft; Z99.81 Dependence on supplemental oxygen; I25.2 Old myocardial infarction; Z68.35 Body mass index [BMI] 35.0-35.9, adult
CPT/HCPCS: 36415; 71045; 76770; 80048; 80061; 80076; 80305; 82550; 82948; 83735; 83880; 84145; 84484; 85025; 85610; 85651; 85730; 86140; 93005; 94640; 94664; 99291; G0378; J1650; J1815; J7120